=== PATIENT | male | born 1960 | race Caucasian/White ===

== ENCOUNTER 2017-01-16 16:34 | Emergency (ER) | payer MEDICARE ==
[2017-01-16] MEDS ORDERED: CLINDAMYCIN 150 MG CAP As Ordered ONE (17:55)
--- NOTE | 2017-01-16 18:09 | EDDOCDS ---
Physician Documentation [facility] Name: Bear Berger Age: 56 yrs Sex: Male : 1960 Arrival Date: 01/16/2017 Time: 16:34 Bed I8 / 16 Private MD: NO PRIMARY PHYSICIAN, . Disposition: 01/16/17 17:54 Discharged to Home/Self Care. Impression: Other and unspecified parts of mouth - infection. - Condition is Stable. - Discharge Instructions: Mouth Laceration, Mouth Laceration, [id number]. - Prescriptions for Clindamycin HCl 300 mg Oral Capsule - take 1 capsule by ORAL route every 6 hours; 40 capsule. - Medication Reconciliation, Local Pharmacy Hours form. - Follow up: Your, Dentist; When: Call to arrange an appointment. - Problem is new. - Symptoms are unchanged. Historical: - Allergies: No known drug Allergies; - Home Meds: 1. Abilify 15 mg Oral tab 1 tab once daily 2. Lasix 40 mg Oral tab 1 tab 2 times per day 3. spironolactone 25 mg Oral tab 1 tab 2 times per day 4. aspirin 81 mg Oral tab 1 tab once daily 5. Aleve 220 mg Oral tab 1 tab every 8 hours 6. tramadol 50 mg Oral tab 1 tab every 4 hours 7. carisoprodol 350 mg Oral tab 1 tab twice a day 8. omeprazole 20 mg Oral cpDR 1 cap 2 times per day 9. Verapamil Unknown Oral Unknown once daily 10. NitroQuick 0.4 mg SL subl 1 tab every 5 minutes 11. albuterol sulfate 2.5 mg /3 mL (0.083 %) Inhl nebu 3 mL 3 times per day 12. albuterol sulfate 90 mcg/actuation Inhl aepb 1 puff every 4 hours 13. symbicort daily - PMHx: Asthma; Bipolar disorder; GERD; [place] x 2; CHF; Hypertension; - PSHx: circumcision; - Social history: Smoking status: Patient uses tobacco products, light tobacco smoker. No barriers to communication noted, The patient speaks fluent Italian, Speaks appropriately for age. - Family history: Not pertinent. - : The pt / caregiver states he / she is not on anticoagulants. Home medication list is obtained from the patient. - Exposure Risk Screening:: None identified. Vital Signs: 01/16 16:37 BP 155 / 74 RA Sitting (auto/lg); Pulse 83; Resp 18; Temp 96.5; Pulse Ox 94% on R/A; bnb Weight 158.76 kg / 350.01 lbs (R); Height 5 ft. 6 in. (167.64 cm) (R); Pain 10; 16:37 Body Mass Index 56.49 (158.76 kg, 167.64 cm) bnb MDM: 17:53 Clindamycin 300 mg PO once ordered. sd1 18:05 Financial registration complete. zo Administered Medications: 18:01 Drug: Clindamycin 300 mg [clindamycin 150 mg capsule (2 caps)] Route: PO; mk4 Signatures: Hilary Pink MD MD sd1 Lavell Thomas Zoeann zo Becker, Joshua,RN RN Samantha Alvarez RN RN mk4 IRENE
--- NOTE | 2017-01-16 18:09 | EDDOCDS ---
Nurse's Notes [facility] Name: Bear Berger Age: 56 yrs Sex: Male : 1960 Arrival Date: 01/16/2017 Time: 16:34 Bed I8 / 16 Private MD: NO PRIMARY PHYSICIAN, . Diagnosis: Other and unspecified parts of mouth-infection Presentation: 01/16 16:40 Presenting complaint: Patient states: Patient reports that he has mouth pain, started jmb two weeks ago. Started with cut in mouth. Patient reports now it feels like mouth is swollen. Patient reports inability to eat or sleep. Adult Sepsis Screening: The patient does not have new or worsening altered mentation. Patient's respiratory rate is less than 22. Systolic blood pressure is greater than 100. Patient has a qSOFA score of 0- Negative Sepsis Screen. Suicide/Homicide risk assessment- the patient denies having any suicidal and/or homicidal ideations and does not present with any other emotional, behavioral or mental health complaints. Status: Patient is not a automotive service advisor or dependent. Transition of care: patient was not received from another setting of care. 16:40 Acuity: SARAH Level 4 [facility] 16:40 Method Of Arrival: Walkin/Carried/Asstd b Triage Assessment: 16:48 General: Appears in no apparent distress, Behavior is appropriate for age, cooperative. b Pain: Location: mouth Pain currently is 10 out of 10 on a pain scale. HIV screening NA for this visit Offered previously. Neurological: Level of Consciousness is awake, alert, obeys commands, Oriented to person, place, time, Speech is normal, Facial symmetry appears normal, Facial symmetry: tongue is midline. Respiratory: Airway is patent Respiratory effort is even, unlabored, Respiratory pattern is regular, symmetrical. Derm: Skin is pink, warm & dry. Musculoskeletal: Range of motion intact in all extremities. Historical: - Allergies: No known drug Allergies; - Home Meds: 1. Abilify 15 mg Oral tab 1 tab once daily 2. Lasix 40 mg Oral tab 1 tab 2 times per day 3. spironolactone 25 mg Oral tab 1 tab 2 times per day 4. aspirin 81 mg Oral tab 1 tab once daily 5. Aleve 220 mg Oral tab 1 tab every 8 hours 6. tramadol 50 mg Oral tab 1 tab every 4 hours 7. carisoprodol 350 mg Oral tab 1 tab twice a day 8. omeprazole 20 mg Oral cpDR 1 cap 2 times per day 9. Verapamil Unknown Oral Unknown once daily 10. NitroQuick 0.4 mg SL subl 1 tab every 5 minutes 11. albuterol sulfate 2.5 mg /3 mL (0.083 %) Inhl nebu 3 mL 3 times per day 12. albuterol sulfate 90 mcg/actuation Inhl aepb 1 puff every 4 hours 13. symbicort daily - PMHx: Asthma; Bipolar disorder; GERD; [place] x 2; CHF; Hypertension; - PSHx: circumcision; - Social history: Smoking status: Patient uses tobacco products, light tobacco smoker. No barriers to communication noted, The patient speaks fluent Mongolian, Speaks appropriately for age. - Family history: Not pertinent. - : The pt / caregiver states he / she is not on anticoagulants. Home medication list is obtained from the patient. - Exposure Risk Screening:: None identified. Assessment: 17:37 General: Appears in no apparent distress, to be sleeping. sitting in chair in room. mk4 Respiratory: Airway is patent Respiratory effort is even, unlabored, Respiratory pattern is regular. Vital Signs: 16:37 BP 155 / 74 RA Sitting (auto/lg); Pulse 83; Resp 18; Temp 96.5; Pulse Ox 94% on R/A; bnb Weight 158.76 kg (R); Height 5 ft. 6 in. (167.64 cm) (R); Pain 10/10; 16:37 Body Mass Index 56.49 (158.76 kg, 167.64 cm) [facility] Vitals: 16:37 Log In Time: January 16, 2017 at 16:35. [facility] ED Course: 16:36 Patient visited by Claudia Gilliland PCA. bnb 16:36 NO PRIMARY PHYSICIAN, . is Private Physician. bnb 16:36 Patient moved to Waiting bnb 16:39 Patient moved to Pre RCE bnb 16:41 Triage Initiated jmb 17:06 Patient visited by Hilary Pink MD. sd1 17:17 Patient moved to I8 / 16 ml6 17:36 Patient visited by Samantha Sebastian RN. mk4 17:37 The patient / caregiver is instructed regarding the plan of care and ED course. mk4 17:49 Hilary Pink MD is Attending Physician. sd1 17:49 Patient visited by Hilary Pink MD. sd1 17:53 Your, Dentist is Referral Physician. sd1 Administered Medications: 18:01 Drug: Clindamycin 300 mg [clindamycin 150 mg capsule (2 caps)] Route: PO; mk4 Order Results: There are currently no results for this order. Outcome: 17:54 Discharge ordered by Provider. sd1 18:08 Patient left the ED. dpd Signatures: Hilary Pink MD MD sd1 Lavell Thomas dpd Davian Huang, RN RN ml6 Clifton GillilandRN RN Samantha Alvarez RN RN mk4 Claudia Gilliland PCA SEPARATOR TENDER bnb IRENE
--- NOTE | 2017-01-18 19:09 | EDDOCDS ---
Nurse's Notes [facility] Name: Bear Berger Jr Age: 56 yrs Sex: Male : 1960 Arrival Date: 01/16/2017 Time: 16:34 Bed I8 / 16 Private MD: NO PRIMARY PHYSICIAN, . Diagnosis: Other and unspecified parts of mouth-infection Presentation: 01/16 16:40 Presenting complaint: Patient states: Patient reports that he has mouth pain, started jmb two weeks ago. Started with cut in mouth. Patient reports now it feels like mouth is swollen. Patient reports inability to eat or sleep. Adult Sepsis Screening: The patient does not have new or worsening altered mentation. Patient's respiratory rate is less than 22. Systolic blood pressure is greater than 100. Patient has a qSOFA score of 0- Negative Sepsis Screen. Suicide/Homicide risk assessment- the patient denies having any suicidal and/or homicidal ideations and does not present with any other emotional, behavioral or mental health complaints. Status: Patient is not a business services intern or dependent. Transition of care: patient was not received from another setting of care. 16:40 Acuity: SARAH Level 4 b 16:40 Method Of Arrival: Walkin/Carried/Asstd b Triage Assessment: 16:48 General: Appears in no apparent distress, Behavior is appropriate for age, cooperative. b Pain: Location: mouth Pain currently is 10 out of 10 on a pain scale. HIV screening NA for this visit Offered previously. Neurological: Level of Consciousness is awake, alert, obeys commands, Oriented to person, place, time, Speech is normal, Facial symmetry appears normal, Facial symmetry: tongue is midline. Respiratory: Airway is patent Respiratory effort is even, unlabored, Respiratory pattern is regular, symmetrical. Derm: Skin is pink, warm & dry. Musculoskeletal: Range of motion intact in all extremities. Historical: - Allergies: No known drug Allergies; - Home Meds: 1. Abilify 15 mg Oral tab 1 tab once daily 2. Lasix 40 mg Oral tab 1 tab 2 times per day 3. spironolactone 25 mg Oral tab 1 tab 2 times per day 4. aspirin 81 mg Oral tab 1 tab once daily 5. Aleve 220 mg Oral tab 1 tab every 8 hours 6. tramadol 50 mg Oral tab 1 tab every 4 hours 7. carisoprodol 350 mg Oral tab 1 tab twice a day 8. omeprazole 20 mg Oral cpDR 1 cap 2 times per day 9. Verapamil Unknown Oral Unknown once daily 10. NitroQuick 0.4 mg SL subl 1 tab every 5 minutes 11. albuterol sulfate 2.5 mg /3 mL (0.083 %) Inhl nebu 3 mL 3 times per day 12. albuterol sulfate 90 mcg/actuation Inhl aepb 1 puff every 4 hours 13. symbicort daily - PMHx: Asthma; Bipolar disorder; GERD; [place] x 2; CHF; Hypertension; - PSHx: circumcision; - Social history: Smoking status: Patient uses tobacco products, light tobacco smoker. No barriers to communication noted, The patient speaks fluent Anguillan, Speaks appropriately for age. - Family history: Not pertinent. - : The pt / caregiver states he / she is not on anticoagulants. Home medication list is obtained from the patient. - Exposure Risk Screening:: None identified. Screenin:13 Screening information is obtained from the patient. Fall risk: No risks identified. mk4 Assistance ADL's: requires no assistance with activities of daily living. Abuse/DV Screen: The patient / caregiver reports he/she is: not in a situation that causes fear, pain or injury. Nutritional screening: No deficits noted. Advance Directives: Currently, there is no health care proxy. There is no active DNR order. There is no living will. There is no Power of Quality Control Head. Advance directive information has not previously been placed in an [facility] medical record. Further advance directive information is declined. home support is adequate. Assessment: 17:37 General: Appears in no apparent distress, to be sleeping. sitting in chair in room. mk4 Respiratory: Airway is patent Respiratory effort is even, unlabored, Respiratory pattern is regular. Vital Signs: 16:37 BP 155 / 74 RA Sitting (auto/lg); Pulse 83; Resp 18; Temp 96.5; Pulse Ox 94% on R/A; bnb Weight 158.76 kg (R); Height 5 ft. 6 in. (167.64 cm) (R); Pain 10/10; 16:37 Body Mass Index 56.49 (158.76 kg, 167.64 cm) [facility] Vitals: 16:37 Log In Time: January 16, 2017 at 16:35. bnb ED Course: 16:36 Patient visited by Claudia Gilliland PCA. bnb 16:36 NO PRIMARY PHYSICIAN, . is Private Physician. bnb 16:36 Patient moved to Waiting bnb 16:39 Patient moved to Pre RCE bnb 16:41 Triage Initiated jmb 17:06 Patient visited by Hilary Pink MD. sd1 17:17 Patient moved to I8 / 16 ml6 17:36 Patient visited by Samantha Sebastian RN. mk4 17:37 The patient / caregiver is instructed regarding the plan of care and ED course. mk4 17:49 Hilary Pink MD is Attending Physician. sd1 17:49 Patient visited by Hilary Pink MD. sd1 17:53 Your, Dentist is Referral Physician. sd1 18:13 No IV's were initiated during this patient's visit. No procedures done that require mk4 assistance. 18:46 [facility] Payment Agreement was scanned into [employer] and attached to record. zo 18:56 Patient name changed from Bear\S\K\S\Lagray\S\ to Bear\S\K\S\Felicey Jr. EDMS 01/17 10:27 T-Sheet-- Draft Copy was scanned into [employer] and attached to record. gb Administered Medications: 01/16 18:01 Drug: Clindamycin 300 mg [clindamycin 150 mg capsule (2 caps)] Route: PO; mk4 Order Results: There are currently no results for this order. Outcome: 17:54 Discharge ordered by Provider. sd1 18:08 Patient left the ED. dpd 18:13 Discharge Assessment: Patient awake, alert and oriented x 3. No cognitive and/or mk4 functional deficits noted. Patient verbalized understanding of disposition instructions. Patient awake and alert. Discharge Assessment: patient administered narcotics - no. The following High Risk Discharge criteria are identified: None. Condition: good Condition: stable. No special radiology studies were completed. Property sent home with patient. Signatures: Dispatcher [employer] EDWA Hilary Pink MD MD sd1 Lavell Thomas dpd Eunice Sapp, Reg Reg gb Gisela Wilson Matthew, RN RN ml6 Clifton Gilliland,RN RN kylerb Samantha Sebastian, RN RN mk4 Claudia Gilliland, DISPATCHER SERVICE OR WORK DISPATCHER SERVICE OR WORK bnb Chart Complete MTDD
--- NOTE | 2017-01-18 19:09 | EDDOCDS ---
Physician Documentation [facility] Name: Bear Berger Jr Age: 56 yrs Sex: Male : 1960 Arrival Date: 01/16/2017 Time: 16:34 Bed I8 16 Private MD: NO PRIMARY PHYSICIAN, . Disposition: 01/16/17 17:54 Discharged to Home/Self Care. Impression: Other and unspecified parts of mouth - infection. - Condition is Stable. - Discharge Instructions: Mouth Laceration, Mouth Laceration, [id number]. - Prescriptions for Clindamycin HCl 300 mg Oral Capsule - take 1 capsule by ORAL route every 6 hours; 40 capsule. - Medication Reconciliation, Local Pharmacy Hours form. - Follow up: Your, Dentist; When: Call to arrange an appointment. - Problem is new. - Symptoms are unchanged. Historical: - Allergies: No known drug Allergies; - Home Meds: 1. Abilify 15 mg Oral tab 1 tab once daily 2. Lasix 40 mg Oral tab 1 tab 2 times per day 3. spironolactone 25 mg Oral tab 1 tab 2 times per day 4. aspirin 81 mg Oral tab 1 tab once daily 5. Aleve 220 mg Oral tab 1 tab every 8 hours 6. tramadol 50 mg Oral tab 1 tab every 4 hours 7. carisoprodol 350 mg Oral tab 1 tab twice a day 8. omeprazole 20 mg Oral cpDR 1 cap 2 times per day 9. Verapamil Unknown Oral Unknown once daily 10. NitroQuick 0.4 mg SL subl 1 tab every 5 minutes 11. albuterol sulfate 2.5 mg /3 mL (0.083 %) Inhl nebu 3 mL 3 times per day 12. albuterol sulfate 90 mcg/actuation Inhl aepb 1 puff every 4 hours 13. symbicort daily - PMHx: Asthma; Bipolar disorder; GERD; [place] x 2; CHF; Hypertension; - PSHx: circumcision; - Social history: Smoking status: Patient uses tobacco products, light tobacco smoker. No barriers to communication noted, The patient speaks fluent Khmer, Speaks appropriately for age. - Family history: Not pertinent. - : The pt / caregiver states he / she is not on anticoagulants. Home medication list is obtained from the patient. - Exposure Risk Screening:: None identified. Vital Signs: 01/16 16:37 BP 155 / 74 RA Sitting (auto/lg); Pulse 83; Resp 18; Temp 96.5; Pulse Ox 94% on R/A; bnb Weight 158.76 kg / 350.01 lbs (R); Height 5 ft. 6 in. (167.64 cm) (R); Pain 10/10; 16:37 Body Mass Index 56.49 (158.76 kg, 167.64 cm) bnb MDM: 17:53 Clindamycin 300 mg PO once ordered. sd1 18:05 Financial registration complete. zo 18:46 [facility] Payment Agreement was scanned into [employer] and attached to record. zo 01/17 10: T-Sheet-- Draft Copy was scanned into [employer] and attached to record. gb Administered Medications: 01/16 18:01 Drug: Clindamycin 300 mg [clindamycin 150 mg capsule (2 caps)] Route: PO; mk4 Signatures: Hilary Pink MD MD sd1 Lavell Thomas dpd Eunice Sapp, Reg Reg gb Gisela Wilson Joshua,RN RN Samantha Alvarez RN RN mk4 The chart was reviewed and I authenticate all verbal orders and agree with the evaluation and treatment provided.Attachments: 18:46 [facility] Payment Agreement zo 01/17 10:27 T-Sheet-- Draft Copy gb Chart Complete MTDD
--- NOTE | 2017-01-18 19:09 | EDDOCDS ---
Physician Documentation [facility] Name: Bear Berger Jr Age: 56 yrs Sex: Male : 1960 Arrival Date: 01/16/2017 Time: 16:34 Bed I8 16 Private MD: NO PRIMARY PHYSICIAN, . Disposition: 01/16/17 17:54 Discharged to Home/Self Care. Impression: Other and unspecified parts of mouth - infection. - Condition is Stable. - Discharge Instructions: Mouth Laceration, Mouth Laceration, [id number]. - Prescriptions for Clindamycin HCl 300 mg Oral Capsule - take 1 capsule by ORAL route every 6 hours; 40 capsule. - Medication Reconciliation, Local Pharmacy Hours form. - Follow up: Your, Dentist; When: Call to arrange an appointment. - Problem is new. - Symptoms are unchanged. Historical: - Allergies: No known drug Allergies; - Home Meds: 1. Abilify 15 mg Oral tab 1 tab once daily 2. Lasix 40 mg Oral tab 1 tab 2 times per day 3. spironolactone 25 mg Oral tab 1 tab 2 times per day 4. aspirin 81 mg Oral tab 1 tab once daily 5. Aleve 220 mg Oral tab 1 tab every 8 hours 6. tramadol 50 mg Oral tab 1 tab every 4 hours 7. carisoprodol 350 mg Oral tab 1 tab twice a day 8. omeprazole 20 mg Oral cpDR 1 cap 2 times per day 9. Verapamil Unknown Oral Unknown once daily 10. NitroQuick 0.4 mg SL subl 1 tab every 5 minutes 11. albuterol sulfate 2.5 mg /3 mL (0.083 %) Inhl nebu 3 mL 3 times per day 12. albuterol sulfate 90 mcg/actuation Inhl aepb 1 puff every 4 hours 13. symbicort daily - PMHx: Asthma; Bipolar disorder; GERD; [place] x 2; CHF; Hypertension; - PSHx: circumcision; - Social history: Smoking status: Patient uses tobacco products, light tobacco smoker. No barriers to communication noted, The patient speaks fluent Albanian, Speaks appropriately for age. - Family history: Not pertinent. - : The pt / caregiver states he / she is not on anticoagulants. Home medication list is obtained from the patient. - Exposure Risk Screening:: None identified. Vital Signs: 01/16 16:37 BP 155 / 74 RA Sitting (auto/lg); Pulse 83; Resp 18; Temp 96.5; Pulse Ox 94% on R/A; bnb Weight 158.76 kg / 350.01 lbs (R); Height 5 ft. 6 in. (167.64 cm) (R); Pain 10/10; 16:37 Body Mass Index 56.49 (158.76 kg, 167.64 cm) bnb MDM: 17:53 Clindamycin 300 mg PO once ordered. sd1 18:05 Financial registration complete. zo 18:46 [facility] Payment Agreement was scanned into [employer] and attached to record. zo 01/17 10: T-Sheet-- Draft Copy was scanned into [employer] and attached to record. gb Administered Medications: 01/16 18:01 Drug: Clindamycin 300 mg [clindamycin 150 mg capsule (2 caps)] Route: PO; mk4 Signatures: Hilary Pink MD MD sd1 Lavell Thomas dpd Eunice Sapp, Reg Reg gb Gisela Wilson Joshua,RN RN Samantha Alvarez RN RN mk4 The chart was reviewed and I authenticate all verbal orders and agree with the evaluation and treatment provided.Attachments: 18:46 [facility] Payment Agreement zo 01/17 10:27 T-Sheet-- Draft Copy gb Chart Complete MTDD
== END 2017-01-16 18:08 | disposition home or self-care (01) ==
LOC: M ED 16:34
DX: S00.502A Unspecified superficial injury of oral cavity, initial encounter (principal); J45.909 Unspecified asthma, uncomplicated; F31.9 Bipolar disorder, unspecified; K21.9 Gastro-esophageal reflux disease without esophagitis; I25.2 Old myocardial infarction; I50.9 Heart failure, unspecified; I10 Essential (primary) hypertension; Z72.0 Tobacco use; Z79.82 Long term (current) use of aspirin; Z79.899 Other long term (current) drug therapy; X58.XXXA Exposure to other specified factors, initial encounter; Y92.9 Unspecified place or not applicable; Y93.9 Activity, unspecified; Y99.9 Unspecified external cause status

== ENCOUNTER → 2017-03-07 | Outpatient (REF) | payer MEDICARE ==
[2017-03-07 20:05] LABS: ANION GAP 4 MEQ/L (8-16); BLOOD UREA NITROGEN 15 MG/DL (7-18); CALCIUM LEVEL 8.5 MG/DL (8.5-10.1); CARBON DIOXIDE LEVEL 33 MEQ/L (21-32); CHLORIDE LEVEL 107 MEQ/L (98-107); GLOMERULAR FILTRATION RATE > 60.0 (>56); GLUCOSE, FASTING 100 MG/DL (70-105); POTASSIUM SERUM 4.6 MEQ/L (3.5-5.1); SODIUM LEVEL 144 MEQ/L (136-145)
== END ==
LOC: M LAB REF 16:50
PROVIDERS: ATTEND Nurse Practitioner Family
DX: I11.0 Hypertensive heart disease with heart failure (principal); I50.9 Heart failure, unspecified

== ENCOUNTER → 2017-03-17 | Outpatient (CLI) | payer MEDICARE ==
--- NOTE | 2017-03-17 11:42 | REP ---
PA and lateral chest: Comparison is 08/08/2008. The lung cueva are clear. The cardiac size cannot be determined as the left cardiac margin is obscured by a large left epicardial fat pad. The tesha, mediastinum, and bony thorax are unremarkable. Impression: Essentially negative chest. There is a large left epicardial fat pad precluding evaluation of cardiac size. Signed by Abram Mcneal MD 03/17/2017 11:34 A
[2017-03-17 11:49] LABS: MEAN CORPUSCULAR HEMOGLOBIN 31.9 pg (27.0-33.0); MEAN CORPUSCULAR HGB CONC 32.8 g/dl (32.0-36.5); MEAN CORPUSCULAR VOLUME 97.2 fl (80.0-96.0); RED CELL DISTRIBUTION WIDTH 12.3 % (11.5-14.5); WHITE BLOOD COUNT 8.7 K/mm3 (4.0-10.0)
[2017-03-17 12:38] LABS: ALBUMIN 3.5 GM/DL (3.2-5.2); ALBUMIN/GLOBULIN RATIO 1.13 (1.00-1.93); ALKALINE PHOSPHATASE 62 U/L (45-117); ALT/SGPT 37 U/L (12-78); ANION GAP 7 MEQ/L (8-16); AST/SGOT 17 U/L (15-37); BILIRUBIN,TOTAL 0.7 MG/DL (0.2-1.0); BLOOD UREA NITROGEN 17 MG/DL (7-18); CALCIUM LEVEL 8.4 MG/DL (8.5-10.1); CARBON DIOXIDE LEVEL 32 MEQ/L (21-32); CHLORIDE LEVEL 97 MEQ/L (98-107); CHOLESTEROL LEVEL 185 MG/DL (<200); CREATININE FOR GFR 0.95 MG/DL (0.70-1.30); FREE T4 1.01 NG/DL (0.76-1.46); GLOMERULAR FILTRATION RATE > 60.0 (>56); GLUCOSE, FASTING 94 MG/DL (70-105); POTASSIUM SERUM 3.9 MEQ/L (3.5-5.1); SODIUM LEVEL 136 MEQ/L (136-145); TOTAL PROTEIN 6.6 GM/DL (6.4-8.2); TRIGLYCERIDES LEVEL 107 MG/DL (<150)
--- NOTE | 2017-03-17 17:17 | ECGEPIP ---
Stationary ECG Study [facility] Test Date: 2017-03-17 Pat Name: ANU CALDERÓN JR Department: Room: - Gender: M Gift Manager: : 1960 Requested By: Jessica CACERES Order Number: [id number] Reading MD: Alireza Aguila Measurements Intervals [place] Rate: 70 P: 49 OR: 166 QRS: 40 QRSD: 103 T: 84 QT: 381 QTc: 413 Interpretive Statements SINUS RHYTHM NONSPECIFIC T-WAVE ABNORMALITY No significant change when compared to prior tracing of 05-14-15 Electronically Signed On 03-17-2017 17:17:15 EDT by Alireza Aguila
== END ==
LOC: M LAB 10:56
PROVIDERS: ATTEND Nurse Practitioner Family
DX: R06.09 Other forms of dyspnea (principal); I25.118 Atherosclerotic heart disease of native coronary artery with other forms of angina pectoris; I11.0 Hypertensive heart disease with heart failure; Z13.220 Encounter for screening for lipoid disorders; Z12.5 Encounter for screening for malignant neoplasm of prostate; R20.8 Other disturbances of skin sensation; E66.01 Morbid (severe) obesity due to excess calories; Z11.4 Encounter for screening for human immunodeficiency virus [HIV]; F31.9 Bipolar disorder, unspecified; K62.5 Hemorrhage of anus and rectum; Z79.899 Other long term (current) drug therapy

== ENCOUNTER → 2017-04-04 | Outpatient (REF) | payer MEDICARE ==
[2017-04-04 19:10] LABS: ANION GAP 4 MEQ/L (8-16); BLOOD UREA NITROGEN 13 MG/DL (7-18); CALCIUM LEVEL 8.9 MG/DL (8.5-10.1); CARBON DIOXIDE LEVEL 34 MEQ/L (21-32); CHLORIDE LEVEL 107 MEQ/L (98-107); CREATININE FOR GFR 1.01 MG/DL (0.70-1.30); GLOMERULAR FILTRATION RATE > 60.0 (>56); GLUCOSE, FASTING 92 MG/DL (70-105); SODIUM LEVEL 145 MEQ/L (136-145)
[2017-04-04 19:54] LABS: POTASSIUM SERUM 5.2 MEQ/L (3.5-5.1)
== END ==
LOC: M LAB REF 16:28
PROVIDERS: ATTEND Nurse Practitioner Family
DX: I11.0 Hypertensive heart disease with heart failure (principal)

== ENCOUNTER → 2017-04-11 | Outpatient (REF) | payer MEDICARE ==
[2017-04-11 14:06] LABS: ANION GAP 7 MEQ/L (8-16); BLOOD UREA NITROGEN 20 MG/DL (7-18); CALCIUM LEVEL 8.5 MG/DL (8.5-10.1); CARBON DIOXIDE LEVEL 31 MEQ/L (21-32); CHLORIDE LEVEL 103 MEQ/L (98-107); CREATININE FOR GFR 1.11 MG/DL (0.70-1.30); GLOMERULAR FILTRATION RATE > 60.0 (>56); GLUCOSE, FASTING 105 MG/DL (70-105); POTASSIUM SERUM 4.2 MEQ/L (3.5-5.1); SODIUM LEVEL 141 MEQ/L (136-145)
== END ==
LOC: M LAB REF 12:45
PROVIDERS: ATTEND Nurse Practitioner Family
DX: I11.0 Hypertensive heart disease with heart failure (principal)

== ENCOUNTER → 2017-07-18 | Outpatient (REF) | payer MEDICARE ==
[~2017-07-18] MED LIST: ATOR40TA75 PO; CARV6.25 PO; LASI80TA PO; PROAAER10 PO; SPIR1CAP INH; SYMB16INH INH
[2017-07-18 13:34] LABS: ANION GAP 8 MEQ/L (8-16); BLOOD UREA NITROGEN 19 MG/DL (7-18); CALCIUM LEVEL 8.9 MG/DL (8.5-10.1); CARBON DIOXIDE LEVEL 30 MEQ/L (21-32); CHLORIDE LEVEL 104 MEQ/L (98-107); CREATININE FOR GFR 1.01 MG/DL (0.70-1.30); GLOMERULAR FILTRATION RATE > 60.0 (>56); GLUCOSE, FASTING 86 MG/DL (70-105); POTASSIUM SERUM 4.4 MEQ/L (3.5-5.1); SODIUM LEVEL 142 MEQ/L (136-145)
== END ==
LOC: M LAB REF 12:24
PROVIDERS: ATTEND Nurse Practitioner Family
DX: I11.0 Hypertensive heart disease with heart failure (principal); I50.9 Heart failure, unspecified

== ENCOUNTER 2017-09-20 13:13 | Emergency (ER) | payer MEDICARE ==
[~2017-09-20] VITALS: Ht 167.6 cm; Wt 150.0 kg
[2017-09-20] MEDS ORDERED: ATOR40TA75 PO (13:26)
[2017-09-20] MEDS ORDERED: LASI80TA PO (13:26)
[2017-09-20] MEDS ORDERED: PROAAER10 PO (13:26)
[2017-09-20] MEDS ORDERED: CARV6.25 PO (13:26)
[2017-09-20] MEDS ORDERED: SYMB16INH INH (13:26)
[2017-09-20] MEDS ORDERED: SPIR1CAP INH (13:26)
--- NOTE | 2017-09-20 15:27 | REP ---
LEFT KNEE SERIES: Five views. HISTORY: Left knee pop. FINDINGS: Five views of the left knee demonstrate normal bones, joints, and soft tissues. No fracture or subluxation is seen. IMPRESSION: Negative views of the left knee. Signed by Nash Siegel MD 09/20/2017 04:12 P
[2017-09-20 16:28] VITALS: BP 157/80
== END 2017-09-20 16:48 | disposition home or self-care (01) ==
LOC: M ED 13:13
DX: M25.562 Pain in left knee (principal); W01.198A Fall on same level from slipping, tripping and stumbling with subsequent striking against other object, initial encounter; Y92.099 Unspecified place in other non-institutional residence as the place of occurrence of the external cause; Y93.01 Activity, walking, marching and hiking; Y99.9 Unspecified external cause status

== ENCOUNTER 2017-12-15 10:25 | Inpatient (IN) | payer MEDICARE ==
[2017-12-15 11:14] LABS: BASO # 0.1 10^3/uL (0.0-0.2); BASO % 0.6 % (0.0-1.0); EOS # 0.3 10^3/uL (0.0-0.50); EOS % 2.5 % (0.0-3.0); HEMATOCRIT 44.7 % (42.0-52.0); HEMOGLOBIN 14.7 g/dl (14.0-18.0); IMMATURE GRANULOCYTE % 0.3 % (0-0); LYMPH # 2.2 10^3/uL (1.5-4.5); LYMPH % 19.5 % (24.0-44.0); MEAN CORPUSCULAR HGB CONC 32.9 g/dl (32.0-36.5); MEAN CORPUSCULAR VOLUME 100.2 fl (80.0-96.0); MONO # 0.7 10^3/uL (0.0-0.8); MONO % 6.4 % (0.0-5.0); NEUTROPHILS # 8.1 10^3/uL (1.8-7.7); NEUTROPHILS % 70.7 % (36.0-66.0); PLATELET COUNT, AUTOMATED 228 10^3/uL (150-450); RED BLOOD COUNT 4.46 10^6/uL (4.30-6.10); RED CELL DISTRIBUTION WIDTH 13.1 % (11.5-14.5); WHITE BLOOD COUNT 11.5 10^3/uL (4.0-10.0)
[2017-12-15 11:23] LABS: INR 1.14; PROTHROMBIN TIME 14.8 SECONDS (12.4-14.5)
[2017-12-15 11:31] LABS: LACTIC ACID SEPSIS PROTOCOL 1.9 MMOL/L (0.4-2.0)
[2017-12-15 11:34] LABS: ALBUMIN 3.6 GM/DL (3.2-5.2); ALBUMIN/GLOBULIN RATIO 1.09 (1.00-1.93); ALKALINE PHOSPHATASE 70 U/L (45-117); ALT/SGPT 46 U/L (12-78); ANION GAP 3 MEQ/L (8-16); AST/SGOT 18 U/L (7-37); BILIRUBIN,DIRECT 0.2 MG/DL (0.0-0.2); BILIRUBIN,TOTAL 0.5 MG/DL (0.2-1.0); BLOOD UREA NITROGEN 13 MG/DL (7-18); CALCIUM LEVEL 8.4 MG/DL (8.5-10.1); CARBON DIOXIDE LEVEL 37 MEQ/L (21-32); CHLORIDE LEVEL 95 MEQ/L (98-107); CPK CREATINE PHOSPHOKINASE 128 U/L (39-308); CREATININE FOR GFR 0.93 MG/DL (0.70-1.30); GLOMERULAR FILTRATION RATE > 60.0 (>56); GLUCOSE, FASTING 101 MG/DL (70-105); POTASSIUM SERUM 4.1 MEQ/L (3.5-5.1); SODIUM LEVEL 135 MEQ/L (136-145); TOTAL PROTEIN 6.9 GM/DL (6.4-8.2); TROPONIN I < 0.02 NG/ML (< 0.10)
[2017-12-15 11:40] LABS: MB/CK RELATIVE INDEX 2.34 (< OR =4); NT-PRO BNP 262 PG/ML (<125)
[2017-12-15 11:41] LABS: ABG HCO3 34.6 MEQ/L (22.0-26.0); ABG O2 SATURATION 93.2 % (95.0-99.0); ABG PARTIAL PRESSURE O2 68.9 mmHg (75.0-100.0); ABG STANDARD HCO3 29.8 MEQ/L (22.0-26.0); ABG TOTAL CO2 36.7 MEQ/L (22.0-29.0); ABG pH (ARTERIAL) 7.326 UNITS (7.350-7.450)
[2017-12-15 11:43] LABS: ABG PARTIAL PRESSURE CO2 67.7 mmHg (35.0-45.0)
[2017-12-15] MEDS: IPRATROPIUM 0.5MG/ALBUTEROL 2.5MG INH SOL UD 3ML (DUONEB)(J7620) NEB ×3 (12:06→21:50)
[2017-12-15] MEDS: predniSONE 20 MG TAB PO (12:20)
[2017-12-15 13:07] LABS: ABG HCO3 31.5 MEQ/L (22.0-26.0); ABG O2 SATURATION 90.1 % (95.0-99.0); ABG PARTIAL PRESSURE CO2 59.1 mmHg (35.0-45.0); ABG PARTIAL PRESSURE O2 61.2 mmHg (75.0-100.0); ABG STANDARD HCO3 27.8 MEQ/L (22.0-26.0); ABG TOTAL CO2 33.3 MEQ/L (22.0-29.0); ABG pH (ARTERIAL) 7.345 UNITS (7.350-7.450)
[2017-12-15] MEDS ORDERED: FUROSEMIDE 100 MG/10 ML VIAL (J1940) IV (13:15)
[2017-12-15] MEDS: FUROSEMIDE 100 MG/10 ML VIAL (J1940) IV (13:47)
[2017-12-15] MEDS ORDERED: IPRATROPIUM 0.5MG/ALBUTEROL 2.5MG INH SOL UD 3ML (DUONEB)(J7620) NEB (15:30)
[2017-12-15 15:45] LABS: C REACTIVE PROTEIN QUANTITATIV 0.92 MG/DL (0.00-0.30)
[2017-12-15] MEDS ORDERED: ACETAMINOPHEN TAB 650MG DOSE (2X325MG) PO (15:45)
[2017-12-15] MEDS ORDERED: BISACODYL 5 MG TAB PO (15:45)
[2017-12-15] MEDS: FUROSEMIDE 40 MG/4 ML VIAL (J1940) IV (16:25)
[2017-12-15 16:33] LABS: FREE T4 0.97 NG/DL (0.76-1.46)
[2017-12-15] MEDS: methylPREDNISolone INJ 125 MG/2 ML VIAL (J2930) IV (18:32)
[2017-12-15] MEDS: NITROGLYCERIN 2% OINT 1 GM *U/D* PKT TOP (18:33)
[2017-12-15] MEDS: ATORVASTATIN 20 MG TAB PO (22:18)
[2017-12-15] MEDS: OMEPRAZOLE 20 MG CAP PO (22:18)
[2017-12-15] MEDS: CARVedilol 6.25 MG TAB PO (22:18)
[2017-12-15] MEDS: HEPARIN SOD (PORCINE) 5000 UNITS/ML VIAL SC (22:19)
[2017-12-16] MEDS: IPRATROPIUM 0.5MG/ALBUTEROL 2.5MG INH SOL UD 3ML (DUONEB)(J7620) NEB ×4 (00:21→20:20)
[2017-12-16] MEDS: FUROSEMIDE 40 MG/4 ML VIAL (J1940) IV ×5 (01:37→23:59)
[2017-12-16] MEDS: methylPREDNISolone INJ 125 MG/2 ML VIAL (J2930) IV ×2 (04:48→15:00)
[2017-12-16] MEDS: HEPARIN SOD (PORCINE) 5000 UNITS/ML VIAL SC ×3 (06:00→21:16)
[2017-12-16 06:39] LABS: HEMATOCRIT 46.5 % (42.0-52.0); HEMOGLOBIN 15.3 g/dl (14.0-18.0); MEAN CORPUSCULAR HEMOGLOBIN 32.6 pg (27.0-33.0); MEAN CORPUSCULAR HGB CONC 32.9 g/dl (32.0-36.5); MEAN CORPUSCULAR VOLUME 98.9 fl (80.0-96.0); PLATELET COUNT, AUTOMATED 270 10^3/uL (150-450); RED CELL DISTRIBUTION WIDTH 12.9 % (11.5-14.5)
[2017-12-16 06:52] LABS: ALBUMIN 3.5 GM/DL (3.2-5.2); ALBUMIN/GLOBULIN RATIO 1.03 (1.00-1.93); ALKALINE PHOSPHATASE 74 U/L (45-117); ALT/SGPT 45 U/L (12-78); ANION GAP 4 MEQ/L (8-16); AST/SGOT 14 U/L (7-37); BILIRUBIN,TOTAL 0.6 MG/DL (0.2-1.0); BLOOD UREA NITROGEN 15 MG/DL (7-18); C REACTIVE PROTEIN QUANTITATIV 1.06 MG/DL (0.00-0.30); CALCIUM LEVEL 8.8 MG/DL (8.5-10.1); CARBON DIOXIDE LEVEL 36 MEQ/L (21-32); CHLORIDE LEVEL 98 MEQ/L (98-107); CREATININE FOR GFR 0.93 MG/DL (0.70-1.30); GLOMERULAR FILTRATION RATE > 60.0 (>56); GLUCOSE, FASTING 137 MG/DL (70-105); MAGNESIUM LEVEL 2.4 MG/DL (1.8-2.4); POTASSIUM SERUM 4.8 MEQ/L (3.5-5.1); SODIUM LEVEL 138 MEQ/L (136-145); TOTAL PROTEIN 6.9 GM/DL (6.4-8.2)
[2017-12-16] MEDS: SPIRONOLACTONE 25 MG TAB PO (09:03)
[2017-12-16] MEDS: ARIPiprazole 15 MG TAB (AbiLIFY) PO (09:04)
[2017-12-16] MEDS: ASPIRIN 81 MG ENTERIC TAB PO (09:04)
[2017-12-16] MEDS: CARVedilol 6.25 MG TAB PO ×2 (09:04→21:16)
[2017-12-16 11:02] LABS: ABG BASE EXCESS 7.1 (-2.0-2.0); ABG HCO3 33.8 MEQ/L (22.0-26.0); ABG PARTIAL PRESSURE CO2 55.3 mmHg (35.0-45.0); ABG PARTIAL PRESSURE O2 53.5 mmHg (75.0-100.0); ABG STANDARD HCO3 30.7 MEQ/L (22.0-26.0); ABG TOTAL CO2 35.5 MEQ/L (22.0-29.0); ABG pH (ARTERIAL) 7.404 UNITS (7.350-7.450)
[2017-12-16] MEDS: ATORVASTATIN 20 MG TAB PO (21:16)
[2017-12-16] MEDS: OMEPRAZOLE 20 MG CAP PO (21:16)
[2017-12-16 21:45] LABS: AMORPHOUS SEDIMENT MODERATE (NEGATIVE); APPEARANCE, URINE TURBID (CLEAR); BACTERIA, URINE AUTO NEGATIVE (NEGATIVE); BILIRUBIN, URINE AUTO NEGATIVE (NEGATIVE); BLOOD, URINE BLOOD 3+ (NEGATIVE); COLOR, URINE YELLOW (YELLOW); GLUCOSE, URINE (UA) AUTO NEGATIVE (NEGATIVE); KETONE, URINE AUTO NEGATIVE (NEGATIVE); LEUKOCYTE ESTERASE, URINE AUTO NEGATIVE (NEGATIVE); NITRITE, URINE AUTO NEGATIVE (NEGATIVE); PROTEIN, URINE AUTO NEGATIVE (NEGATIVE); RBC, URINE AUTO 47 /HPF (0-3); SPECIFIC GRAVITY URINE AUTO 1.028 (1.002-1.035); SQUAMOUS EPITHELIAL CELL UR AU 0 /HPF (0-6); WBC, URINE AUTO 2 /HPF (0-3)
[2017-12-17] MEDS: IPRATROPIUM 0.5MG/ALBUTEROL 2.5MG INH SOL UD 3ML (DUONEB)(J7620) NEB ×4 (02:24→21:55)
[2017-12-17] MEDS: methylPREDNISolone INJ 125 MG/2 ML VIAL (J2930) IV ×2 (04:15→16:18)
[2017-12-17 04:39] LABS: HEMATOCRIT 44.4 % (42.0-52.0); HEMOGLOBIN 14.5 g/dl (14.0-18.0); MEAN CORPUSCULAR HEMOGLOBIN 31.9 pg (27.0-33.0); MEAN CORPUSCULAR HGB CONC 32.7 g/dl (32.0-36.5); MEAN CORPUSCULAR VOLUME 97.8 fl (80.0-96.0); PLATELET COUNT, AUTOMATED 286 10^3/uL (150-450); RED BLOOD COUNT 4.54 10^6/uL (4.30-6.10); RED CELL DISTRIBUTION WIDTH 13.1 % (11.5-14.5); WHITE BLOOD COUNT 22.5 10^3/uL (4.0-10.0)
[2017-12-17 05:01] LABS: ALBUMIN 3.3 GM/DL (3.2-5.2); ALBUMIN/GLOBULIN RATIO 0.97 (1.00-1.93); ALKALINE PHOSPHATASE 63 U/L (45-117); ALT/SGPT 37 U/L (12-78); ANION GAP 5 MEQ/L (8-16); AST/SGOT 18 U/L (7-37); BILIRUBIN,TOTAL 0.7 MG/DL (0.2-1.0); BLOOD UREA NITROGEN 28 MG/DL (7-18); C REACTIVE PROTEIN QUANTITATIV 0.56 MG/DL (0.00-0.30); CALCIUM LEVEL 8.7 MG/DL (8.5-10.1); CARBON DIOXIDE LEVEL 35 MEQ/L (21-32); CHLORIDE LEVEL 99 MEQ/L (98-107); GLOMERULAR FILTRATION RATE > 60.0 (>56); GLUCOSE, FASTING 131 MG/DL (70-105); MAGNESIUM LEVEL 2.6 MG/DL (1.8-2.4); POTASSIUM SERUM 4.3 MEQ/L (3.5-5.1); SODIUM LEVEL 139 MEQ/L (136-145); TOTAL PROTEIN 6.7 GM/DL (6.4-8.2)
[2017-12-17] MEDS: FUROSEMIDE 40 MG/4 ML VIAL (J1940) IV ×2 (06:13→17:49)
[2017-12-17] MEDS: HEPARIN SOD (PORCINE) 5000 UNITS/ML VIAL SC ×3 (06:14→21:44)
[2017-12-17] MEDS: ASPIRIN 81 MG ENTERIC TAB PO (08:08)
[2017-12-17] MEDS: SPIRONOLACTONE 25 MG TAB PO (08:08)
[2017-12-17] MEDS: CARVedilol 6.25 MG TAB PO ×2 (08:09→21:48)
[2017-12-17] MEDS: ARIPiprazole 15 MG TAB (AbiLIFY) PO (08:09)
[2017-12-17 14:01] LABS: CK-MB VALUE MASS 2.5 NG/ML (0.0-3.6); CPK CREATINE PHOSPHOKINASE 382 U/L (39-308); MB/CK RELATIVE INDEX 0.65 (< OR =4); TROPONIN I < 0.02 NG/ML (< 0.10)
[2017-12-17] MEDS: OMEPRAZOLE 20 MG CAP PO (21:44)
[2017-12-17] MEDS: ATORVASTATIN 20 MG TAB PO (21:44)
[2017-12-18] MEDS: IPRATROPIUM 0.5MG/ALBUTEROL 2.5MG INH SOL UD 3ML (DUONEB)(J7620) NEB ×3 (00:14→13:04)
[2017-12-18] MEDS: methylPREDNISolone INJ 125 MG/2 ML VIAL (J2930) IV (04:29)
[2017-12-18 05:34] LABS: HEMATOCRIT 44.2 % (42.0-52.0); HEMOGLOBIN 14.3 g/dl (14.0-18.0); MEAN CORPUSCULAR HEMOGLOBIN 31.8 pg (27.0-33.0); MEAN CORPUSCULAR HGB CONC 32.4 g/dl (32.0-36.5); MEAN CORPUSCULAR VOLUME 98.4 fl (80.0-96.0); PLATELET COUNT, AUTOMATED 280 10^3/uL (150-450); RED BLOOD COUNT 4.49 10^6/uL (4.30-6.10); RED CELL DISTRIBUTION WIDTH 13.5 % (11.5-14.5); WHITE BLOOD COUNT 18.1 10^3/uL (4.0-10.0)
[2017-12-18 05:55] LABS: ALBUMIN 3.3 GM/DL (3.2-5.2); ALBUMIN/GLOBULIN RATIO 1.03 (1.00-1.93); ALKALINE PHOSPHATASE 55 U/L (45-117); ALT/SGPT 42 U/L (12-78); ANION GAP 5 MEQ/L (8-16); AST/SGOT 20 U/L (7-37); BILIRUBIN,TOTAL 0.7 MG/DL (0.2-1.0); BLOOD UREA NITROGEN 33 MG/DL (7-18); C REACTIVE PROTEIN QUANTITATIV 0.34 MG/DL (0.00-0.30); CALCIUM LEVEL 8.5 MG/DL (8.5-10.1); CARBON DIOXIDE LEVEL 36 MEQ/L (21-32); CHLORIDE LEVEL 100 MEQ/L (98-107); CREATININE FOR GFR 1.03 MG/DL (0.70-1.30); GLOMERULAR FILTRATION RATE > 60.0 (>56); GLUCOSE, FASTING 121 MG/DL (70-105); MAGNESIUM LEVEL 2.6 MG/DL (1.8-2.4); POTASSIUM SERUM 4.1 MEQ/L (3.5-5.1); SODIUM LEVEL 141 MEQ/L (136-145); TOTAL PROTEIN 6.5 GM/DL (6.4-8.2)
[2017-12-18] MEDS: FUROSEMIDE 40 MG/4 ML VIAL (J1940) IV (06:20)
[2017-12-18] MEDS: HEPARIN SOD (PORCINE) 5000 UNITS/ML VIAL SC ×2 (06:20→14:00)
[2017-12-18] MEDS: ASPIRIN 81 MG ENTERIC TAB PO (09:50)
[2017-12-18] MEDS: CARVedilol 6.25 MG TAB PO (09:50)
[2017-12-18] MEDS: SPIRONOLACTONE 25 MG TAB PO (09:50)
[2017-12-18] MEDS: ARIPiprazole 15 MG TAB (AbiLIFY) PO (11:43)
[2017-12-18] MEDS ORDERED: predniSONE 20 MG TAB PO (21:00)
== END 2017-12-18 14:30 | disposition left against medical advice (07) | DRG 292 ==
LOC: M ICU 12-16 14:12 → M PCU 12-17 20:00 → M ED 10:25 → M ED INP 17:31
DX: I11.0 Hypertensive heart disease with heart failure (principal); J44.1 Chronic obstructive pulmonary disease with (acute) exacerbation; Z68.44 Body mass index [BMI] 60.0-69.9, adult; I50.33 Acute on chronic diastolic (congestive) heart failure; E66.01 Morbid (severe) obesity due to excess calories; I25.10 Atherosclerotic heart disease of native coronary artery without angina pectoris; E03.9 Hypothyroidism, unspecified; F17.210 Nicotine dependence, cigarettes, uncomplicated; G47.33 Obstructive sleep apnea (adult) (pediatric); F31.9 Bipolar disorder, unspecified; E78.5 Hyperlipidemia, unspecified; Z99.89 Dependence on other enabling machines and devices; I25.2 Old myocardial infarction; Z79.82 Long term (current) use of aspirin; Z79.899 Other long term (current) drug therapy; Z88.8 Allergy status to other drugs, medicaments and biological substances

== ENCOUNTER 2019-02-06 23:44 | Inpatient (IN) | payer MEDICARE ==
[~2019-02-06] VITALS: Ht 167.6 cm; Wt 141.0 kg
[~2019-02-06 23:44] MED LIST changes: +ALBU83IN INH; +ARIP1TAB10 PO; +ASPI1TAB PO; +COMBAER6 INH; -LASI80TA PO; +LASI80TA3 PO; +NITR0.4S14 SL; +OMEP20CA3 PO; +PRED10TA2 PO; +SPIR-10 PO; +TYLE325T5 PO
[2019-02-07] VITALS (7 sets, daily range): BP systolic 136–148; BP diastolic 62–77; O2SAT 95–100
[2019-02-07] MEDS: IPRATROPIUM 0.5MG/ALBUTEROL 2.5MG INH SOL UD 3ML (DUONEB)(J7620) NEB PRN ×3 (00:33→03:07)
[2019-02-07 00:34] LABS: BASO % 0.4 % (0.0-1.0); EOS % 0.1 % (0.0-3.0); HEMATOCRIT 45.6 % (42.0-52.0); HEMOGLOBIN 14.5 g/dl (13.5-17.5); LYMPH % 12.7 % (24.0-44.0); MEAN CORPUSCULAR HEMOGLOBIN 31.9 pg (27.0-33.0); MEAN CORPUSCULAR HGB CONC 31.8 g/dl (32.0-36.5); MEAN CORPUSCULAR VOLUME 100.4 fl (80.0-96.0); MONO # 0.9 10^3/uL (0.0-0.8); MONO % 12.1 % (0.0-5.0); NEUTROPHILS # 5.6 10^3/uL (1.8-7.7); NEUTROPHILS % 73.9 % (36.0-66.0); PLATELET COUNT, AUTOMATED 179 10^3/uL (150-450); RED BLOOD COUNT 4.54 10^6/uL (4.30-6.10); WHITE BLOOD COUNT 7.6 10^3/uL (4.0-10.0)
[2019-02-07 00:54] LABS: INFLUENZA A AMPLIFICATION POSITIVE (NEGATIVE); INFLUENZA B AMPLIFICATION NEGATIVE (NEGATIVE)
[2019-02-07] MEDS ORDERED: K-TA10TA2 PO (01:00)
[2019-02-07] MEDS ORDERED: LASI40TA9 PO (01:00)
[2019-02-07] MEDS ORDERED: CYCL10TA PO ×2 (01:00→03:18)
[2019-02-07] MEDS ORDERED: ALTA1CAP3 PO (01:00)
[2019-02-07] MEDS ORDERED: PROAAER10 INH ×2 (01:00→03:18)
[2019-02-07 01:01] LABS: ALT/SGPT 146 U/L (12-78); BILIRUBIN,TOTAL 0.6 MG/DL (0.2-1.0); BLOOD UREA NITROGEN 23 MG/DL (7-18); CALCIUM LEVEL 7.9 MG/DL (8.8-10.2); CARBON DIOXIDE LEVEL 38 MEQ/L (21-32); CHLORIDE LEVEL 94 MEQ/L (98-107); GLOMERULAR FILTRATION RATE > 60.0 (>49); GLUCOSE, FASTING 103 MG/DL (70-100); POTASSIUM SERUM 4.4 MEQ/L (3.5-5.1); SODIUM LEVEL 136 MEQ/L (136-145); TOTAL PROTEIN 6.7 GM/DL (6.4-8.2)
[2019-02-07] MEDS ORDERED: IPRATROPIUM 0.5MG/ALBUTEROL 2.5MG INH SOL UD 3ML (DUONEB)(J7620) NEB ONE (02:15)
[2019-02-07] MEDS ORDERED: methylPREDNISolone INJ 125 MG/2 ML VIAL (J2930) IV ONE (02:15)
[2019-02-07 02:32] LABS: ABG BASE EXCESS 8.7 (-2.0-2.0); ABG HCO3 40.9 MEQ/L (22.0-26.0); ABG O2 SATURATION 90.2 % (95.0-99.0); ABG PARTIAL PRESSURE CO2 99.4 mmHg (35.0-45.0); ABG PARTIAL PRESSURE O2 68.2 mmHg (75.0-100.0); ABG STANDARD HCO3 32.3 MEQ/L (22.0-26.0); ABG TOTAL CO2 43.9 MEQ/L (23.0-31.0); ABG pH (ARTERIAL) 7.232 UNITS (7.350-7.450)
[2019-02-07 02:34] LABS: CPK CREATINE PHOSPHOKINASE 168 U/L (39-308); NT-PRO BNP 705 PG/ML (<125); TROPONIN I < 0.02 NG/ML (< 0.10)
[2019-02-07] MEDS ORDERED: ALBUTEROL SULFATE 2.5 MG/0.5 ML INH NEB SOLN NEB PRN (03:15)
[2019-02-07] MEDS ORDERED: RAMI1CAP24 PO (03:18)
[2019-02-07] MEDS ORDERED: MUCUTAB PO (03:18)
[2019-02-07] MEDS ORDERED: ASPI81CH PO (03:18)
[2019-02-07] MEDS ORDERED: CARV12.5 PO (03:18)
[2019-02-07] MEDS ORDERED: FURO40TA2 PO (03:18)
[2019-02-07] MEDS ORDERED: POTA10TA17 PO (03:18)
[2019-02-07] MEDS ORDERED: SPIR1CAP INH (03:18)
[2019-02-07] MEDS ORDERED: NITROGLYCERIN 0.4 MG SUBL TABLET SL PRN (03:30)
[2019-02-07 04:49] LABS: ABG BASE EXCESS 11.6 (-2.0-2.0); ABG HCO3 45.5 MEQ/L (22.0-26.0); ABG O2 SATURATION 95.2 % (95.0-99.0); ABG PARTIAL PRESSURE O2 89.6 mmHg (75.0-100.0); ABG STANDARD HCO3 35.3 MEQ/L (22.0-26.0); ABG TOTAL CO2 49.1 MEQ/L (23.0-31.0); ABG pH (ARTERIAL) 7.208 UNITS (7.350-7.450)
[2019-02-07] MEDS ORDERED: FUROSEMIDE 40 MG/4 ML VIAL (J1940) IV SCH ×4 (05:03→09:00)
[2019-02-07] MEDS: HEPARIN SOD (PORCINE) 5000 UNITS/ML VIAL SC SCH ×3 (05:11→21:05)
[2019-02-07] MEDS: AZITHROMYCIN INJ 500 MG, VIAL MATE ADAPTER 1 EACH in D5W 250 ML IV SCH (05:11)
[2019-02-07 05:41] LABS: ALBUMIN 3.3 GM/DL (3.2-5.2); ALT/SGPT 153 U/L (12-78); BILIRUBIN,TOTAL 0.6 MG/DL (0.2-1.0); BLOOD UREA NITROGEN 23 MG/DL (7-18); CALCIUM LEVEL 8.4 MG/DL (8.8-10.2); CARBON DIOXIDE LEVEL 40 MEQ/L (21-32); CHLORIDE LEVEL 92 MEQ/L (98-107); CREATININE FOR GFR 0.98 MG/DL (0.70-1.30); GLOMERULAR FILTRATION RATE > 60.0 (>49); GLUCOSE, FASTING 111 MG/DL (70-100); POTASSIUM SERUM 4.6 MEQ/L (3.5-5.1); SODIUM LEVEL 136 MEQ/L (136-145); TOTAL PROTEIN 7.7 GM/DL (6.4-8.2); TROPONIN I < 0.02 NG/ML (< 0.10)
[2019-02-07 05:46] LABS: ABG BASE EXCESS 4.5 (-2.0-2.0); ABG HCO3 35.4 MEQ/L (22.0-26.0); ABG O2 SATURATION 89.9 % (95.0-99.0); ABG PARTIAL PRESSURE CO2 85.9 mmHg (35.0-45.0); ABG PARTIAL PRESSURE O2 65.7 mmHg (75.0-100.0); ABG STANDARD HCO3 28.2 MEQ/L (22.0-26.0); ABG pH (ARTERIAL) 7.233 UNITS (7.350-7.450)
[2019-02-07] MEDS ORDERED: FUROSEMIDE 100 MG/10 ML VIAL (J1940) IV SCH (06:24)
--- NOTE | 2019-02-07 07:23 | HPE ---
DATE OF ADMISSION: 02/07/2019 CHIEF COMPLAINT: Cough and progressive dyspnea on exertion for one week. HISTORY OF PRESENT ILLNESS: The patient is a 58-year-old male. He has a significant past medical history of what appears to be diastolic congestive heart failure, chronic obstructive pulmonary disease (COPD), coronary artery disease, obesity, obstructive sleep apnea (JESUS) on BiPAP or CPAP at home, unclear, hypertension, hyperlipidemia, morbid obesity. The patient presents to the emergency room in respiratory distress. The patient is somewhat somnolent, able to respond, but also somewhat sleepy. States he has been having symptoms of cough and shortness of breath, progressively worsening for the last week. He denies any chest pain since the productive cough. The patient again is arousable, but the history is somewhat limited as he does appear somewhat sleepy. He does have CO2 narcosis. He is able to answer questions after being prompted multiple times. He denies any abdominal pain, constipation or diarrhea. PAST MEDICAL HISTORY: See history of present illness. PAST SURGICAL HISTORY: As per chart, no significant. Patient was unable to provide as he was to sleepy. HOME MEDICATIONS: - aspirin - Symbicort - Coreg - nitroglycerin - omeprazole - potassium chloride - ramipril - Spiriva - Lasix - Flexeril - albuterol - DuoNebs SOCIAL HISTORY: Former smoker. Denies alcohol or illicit drug use. FAMILY HISTORY: Unable to obtain. REVIEW OF SYSTEMS: Limited but able to obtain a 10 point review of systems, all negative except those listed in the history of present illness. VITAL SIGNS ON ADMISSION: Temperature 99, respirations 24. He was on 6 liters saturating at what appears to be 87%. Blood pressure 168/78. PHYSICAL EXAMINATION: GENERAL: He is an obese gentleman, lethargic. HEAD: Normocephalic, atraumatic. EYES: Extraocular movements are intact. Pupils equal, round, reactive to light. LUNGS: Bronchial breath sounds, mild wheezing. CARDIOVASCULAR: Regular rate and rhythm. Normal S1 and S2. No murmurs, gallops, or rubs. ABDOMEN: Obese. Positive bowel sounds. No rebound or guarding. EXTREMITIES: 1+ edema. No calf tenderness. SKIN: Intact. No rashes, lesions or breakdowns. NEUROLOGICAL EXAM: He is arousable, alert to person and place. LABS AND IMAGING COMPLETED IN THE ER: White count of 7, hemoglobin and hematocrit of 14/45, platelet count of 179. Blood gas 7.23, 99, 68, 40, 90. Chemistry shows a BUN and creatinine of 23/0.09. Tropes are negative. AST 66, ALT 146, BNP of 705. Influenza flu positive. Chest x-ray shows possible small bilateral pleural effusions, some pulmonary venous congestion with mild interstitial edema. ASSESSMENT/PLAN: Acute on chronic respiratory failure with hypercapnia, likely secondary to COPD exacerbation secondary to the flu with likely superimposed CHF exacerbation. PLAN: For COPD exacerbation, DuoNebs standing, albuterol as needed. Continue Symbicort, Spiriva and Solu-Medrol 40 every 8 hours. Insulin sliding scale while on Solu-Medrol, azithromycin, Tamiflu, BiPAP with pulmonary consult to manage BiPAP. Repeat ABG in an hour. For CHF exacerbation will get an echo, serial tropes, serial EKGs. This is likely secondary to the flu. Rule out ACS. Will also help reduce the preload and help with CHF exacerbation, Lasix 40 mg twice a day. Strict intake and output, elevate head of bed, daily weights. Will submit TSH. Will continue potassium supplements. Hypertension. Will continue ramipril, this is his home medication, as well as Lasix and Coreg. Hyperlipidemia. Continue Lipitor. Gastroesophageal reflux disease (GERD). Continue omeprazole. History of coronary artery disease. Continue aspirin. Supportive deep vein thrombosis (DVT) prophylaxis. Heparin subcu. Gastrointestinal (GI) prophylaxis. Not indicated. Diet. Cardiac. Fluid restriction. To be seen by the sustainable products marketing manager in the a.m.
--- NOTE | 2019-02-07 07:39 | ECGEPIP ---
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
[2019-02-07] MEDS: IPRATROPIUM 0.5MG/ALBUTEROL 2.5MG INH SOL UD 3ML (DUONEB)(J7620) NEB SCH ×4 (07:43→20:00)
[2019-02-07] MEDS: SYMBICORT 160/4.5MCG INHALER 6GM INH SCH ×2 (07:44→20:00)
--- NOTE | 2019-02-07 07:46 | CR ---
DATE OF CONSULTATION: 02/07/2019 History was obtained of from the chart and collateral information as well as some history from the patient. He is a somewhat poor historian and is drowsy and having garbled speech which is difficult to understand with a face mask on. HISTORY OF PRESENT ILLNESS: The patient is a 58-year-old male with a past medical history of morbid obesity, congestive heart failure (CHF), chronic obstructive pulmonary disease (COPD) on chronic oxygen supplementation approximately 2-4 liters per minute, obstructive sleep apnea (JESUS) on CPAP, history of coronary artery disease (CAD) with myocardial infarction ([place]), bipolar disorder, hypertension, hyperlipidemia, history of noncompliance who presented to the ED with increasing shortness of breath and cough for the past week or more. The patient had complained of increasing cough, shortness of breath with occasional wheezing for at least the past week, maybe even 2 weeks or longer. He has also noted some increasing orthopnea and PND. The patient denies any chest pains. He denied any recent fevers or chills. He does have a history of chronic lower extremity edema. Unclear if it has increased recently. In the emergency department, the patient was noted to be wheezing diffusely and desaturating on his usual nasal cannula oxygen which is anywhere from 2-4 liters per minute. He was given Solu-Medrol 125 mg and DuoNeb treatment with some improvement in his breathing. He was also lethargic on admission and falling asleep easily during examination. He had ABG done which showed evidence of acute on chronic hypercarbic respiratory failure. He was placed on BiPAP in the emergency department and reported some improvement with his breathing symptoms with the BiPAP. The patient was also found to be influenza A positive. He has been afebrile, is not tachycardic, is mildly tachypneic and hypertensive. PAST MEDICAL HISTORY: 1. Congestive heart failure with a reportedly preserved ejection fraction. 2. Chronic obstructive pulmonary disease (COPD). 3. Coronary artery disease status post myocardial infarction times two. 4. Obstructive sleep apnea on CPAP. 5. Bipolar disorder. 6. Morbid obesity. 7. Hypertension. 8. Hyperlipidemia. 9. History of atrophic right kidney. 10. History of seizures in the past and possible syncope. 11. History of gastroesophageal reflux disease. PAST SURGICAL HISTORY: Endoscopy. Colonoscopy. ALLERGIES: RAMIPRIL reportedly from his last admission in 2018. It gives him hives and angioedema, anaphylaxis. His home medication list, however, shows ramipril and he does not have any documented allergies. HOME MEDICATIONS: - albuterol nebulizers - cyclobenzaprine - furosemide 80 mg twice daily - Spiriva - aspirin - Symbicort - carvedilol - Nitro as needed - omeprazole - potassium chloride - ramipril The patient's previous admission also listed the medication of spironolactone and aripiprazole as well as atorvastatin. SOCIAL HISTORY: The patient is and lives with his who is blind and they currently do not have any assistance in the home. The patient is a current active smoker of at least 4-5 cigarettes a day for many years. He is currently on disability. PHYSICAL EXAMINATION: Temperature is 99.4, pulse is 69, respirations 18, blood pressure 147/66, oxygen saturation 96% on 50% FiO2 on the BiPAP. General: The patient is morbidly obese. He is unkempt and malodorous. His speech is somewhat garbled. He appears comfortable and is not using accessory muscles of respiration currently. Is drowsy but arousable. HEENT: Normocephalic, atraumatic. Pupils are reactive. The patient is edentulous. Neck: He is morbidly obese. Unable to appreciate JVD due to body habitus. Cardiac: He has regular rate and rhythm. There is distant heart sounds but a normal S1, S2 and unable to appreciate any murmurs. Lungs: Patient has diminished air entry bilaterally with wheezes and crackles at the bases. Abdomen: The patient is morbidly obese. Unable to appreciate any organomegaly due to his body habitus. He has an erythematous rash in his inguinal region and in the folds of his abdominal pannus, appears to be fungal in nature with a yeasty smell. He has some slight skin breakdown as well on the scrotum which is also erythematous. He has no sacral decubitus ulcers on exam. Lower extremities: Patient has +1-2 pitting edema bilateral lower extremities with venous stasis changes as well as what appears to be dirt on the skin. His feet bilaterally have severe onychomycosis and dark black and crusting likely dirt and other material on his toes. LABORATORY DATA: WBC 7.6, hemoglobin 14.5, platelets 179. Chemistry: Sodium 136, potassium 4.4, chloride 94, bicarb 38, BUN 23, creatinine 0.90, glucose 103. AST 66, ALT 146, alkaline phosphatase 89, bili normal. Troponins were negative. BMP was 705. ABG on admission: pH 7.232, pCO2 of 99.4, pO2 of 68.2. Chest x-ray showed pulmonary vascular congestion and likely small bilateral effusions with atelectasis in the lower lobes versus consolidation. There is also some cardiomegaly. ASSESSMENT/PLAN: The patient is a 58-year-old male with a history of congestive heart failure, chronic obstructive pulmonary disease (COPD), coronary artery disease, obstructive sleep apnea on CPAP, history of medical noncompliance who presented with worsening shortness of breath, cough and wheezing. The patient was noted to have acute on chronic hypercapnic and hypoxemic respiratory failure. He was also influenza A positive. However he reports his symptoms have been going on for a week or more. The patient also was noted to have increased BMP and a chest x-ray suggesting a component of fluid overload. The patient does have some lower extremity edema, some of which is chronic, unclear how much is worsening. Patient also appears unkempt, malodorous and has significantly poor hygiene on his integument. Suspect the patient has not been compliant with his medications or with any medical followup. Patient likely with acute chronic obstructive pulmonary disease (COPD) exacerbation possibly secondary to influenza A as well as likely decompensated congestive heart failure. The patient was placed on noninvasive positive pressure ventilation. Settings were adjusted to 20 over 10 with respiratory rate of 12 and FIO2 decreased at 45%. Will repeat an ABG and adjust settings as needed. Continue with Solu-Medrol 40 mg every 8 hours and DuoNebs [id number] as well as azithromycin for his COPD exacerbation. He is afebrile. He has no leukocytosis and on x-ray he most likely has atelectasis and effusions versus consolidation. Would hold off on further antibiotics for pneumonia at this time. Continue with Tamiflu and droplet precautions for influenza. Would continue with diuresis. Increase Lasix to 60 mg IV twice daily with first dose now. Will place a Baeza to monitor ins and outs with a goal of being net negative 1.5 liters. Would continue to trend cardiac enzymes and would get a repeat echo on this admission. Will discontinue his ramipril as there is questionable history of angioedema. Once the patient is able to provide a better history, will ask him about his drug allergies. Nystatin ordered for his significant fungal rash in his inguinal region and abdominal pannus folds. Will place a podiatry consult as well given his significant onychomycosis in his feet bilaterally. Deep venous thrombosis (DVT) prophylaxis with heparin. The patient is FULL CODE. Would place a Patient and Family Services consult as suspect he is likely having difficulty caring for himself at home.
--- NOTE | 2019-02-07 07:57 | REP ---
Chest a single frontal view, 11:59 p.m.: Comparison is 12/15/2017. There is cardiomegaly, unchanged. The previous interstitial infiltrates have resolved. There are no definite pleural effusions. The tesha, mediastinum, and skeletal structures are unremarkable. Impression: Cardiomegaly, unchanged. The previous interstitial infiltrates have resolved. Electronically Signed by Abram Mcneal MD 02/07/2019 07:49 A
[2019-02-07] MEDS: CARVedilol 6.25 MG TAB PO SCH ×2 (08:47→21:06)
[2019-02-07] MEDS: ASPIRIN 81 MG CHEW TABLET PO SCH (08:47)
[2019-02-07] MEDS: NYSTATIN OINTMENT 15 GM TOP SCH ×2 (08:48→21:06)
[2019-02-07] MEDS: POTASSIUM CHLORIDE 10 MEQ SR TABLET PO SCH ×2 (08:48→21:06)
[2019-02-07] MEDS: OSELTAMIVIR PHOSPHATE 75 MG CAP (TAMIFLU) PO SCH ×2 (08:48→21:05)
[2019-02-07 08:55] LABS: ABG BASE EXCESS 8.8 (-2.0-2.0); ABG HCO3 37.5 MEQ/L (22.0-26.0); ABG O2 SATURATION 96.7 % (95.0-99.0); ABG PARTIAL PRESSURE O2 89.8 mmHg (75.0-100.0); ABG STANDARD HCO3 32.6 MEQ/L (22.0-26.0); ABG TOTAL CO2 39.6 MEQ/L (23.0-31.0); ABG pH (ARTERIAL) 7.349 UNITS (7.350-7.450)
[2019-02-07 08:57] LABS: ABG PARTIAL PRESSURE CO2 69.6 mmHg (35.0-45.0)
[2019-02-07] MEDS ORDERED: RAMIPRIL 5 MG CAP PO SCH (09:00)
[2019-02-07 09:06] LABS: ACETAMINOPHEN LEVEL < 2.0 UG/ML (10.0-30.0); FREE THYROXINE INDEX 2.8 % (1.4-3.8); T UPTAKE 33 % (33-40); THYROXINE (T4) 8.4 UG/DL (4.5-12.0)
[2019-02-07] MEDS: methylPREDNISolone INJ 40 MG/1 ML VIAL (J2920) IV SCH ×2 (10:39→18:10)
[2019-02-07] MEDS: NYSTATIN 100,000 UNITS/GM TOPICAL PWD 15 GM TOP PRN (15:16)
[2019-02-07 15:24] LABS: ABG HCO3 42.2 MEQ/L (22.0-26.0); ABG O2 SATURATION 87.7 % (95.0-99.0); ABG PARTIAL PRESSURE O2 55.1 mmHg (75.0-100.0); ABG STANDARD HCO3 35.5 MEQ/L (22.0-26.0); ABG TOTAL CO2 44.7 MEQ/L (23.0-31.0); ABG pH (ARTERIAL) 7.329 UNITS (7.350-7.450)
[2019-02-07] MEDS: OMEPRAZOLE 20 MG CAP PO SCH (18:10)
--- NOTE | 2019-02-07 19:54 | IPN ---
DATE: 02/07/2019 Patient seen and examined in the ICU. Currently on BiPAP with AVAPS mode. Speaks in full sentences. Reported much better, arousable to verbal stimuli. Denies any chest pain, pressure or discomfort. Wanted provider to contact his friend. Patient morbidly obese, afebrile. VITAL SIGNS: Temperature 98.4, pulse 65, respirations 19, blood pressure 145/77, pulse oximetry 96%. BiPAP with AVAPS mode. LABORATORY: ABG 7.35, 69.6, 89.8, 37.5. WBC 7.6, hemoglobin and hematocrit 14.5/45.6, platelets 179. Chemistry: Sodium 136, potassium 4.6, chloride 92, bicarbonate 40, BUN 23, creatinine 0.98. PHYSICAL EXAMINATION: GENERAL: Patient morbidly obese. Arousable to verbal stimuli. Alert. Answers questions appropriately. HEENT: Normocephalic, atraumatic. PULMONARY: Diminished breath sounds bilateral. Bilateral wheeze. CARDIAC: Regular, S1, S2. ABDOMEN: Soft, nontender, positive bowel sounds. Patient with bilateral groin erythema and skin breakdown. EXTREMITIES: 1+ edema with bilateral onychomycosis. Patient disheveled. ASSESSMENT AND PLAN: 58-year-old patient with underlying medical history of morbid obesity, poorly compliant, history of diastolic congestive heart failure, COPD, obstructive sleep apnea, on CPAP at home on a pressure of 13 cm of water, coronary arterial disease, hypertension, dyslipidemia, legally blind presented with shortness of breath, increased somnolence, cough for the last week found to be in acute hypercarbic respiratory failure. Patient on 2 liters oxygen at home. PROBLEMS: 1. Acute hypercarbic respiratory failure secondary to influenza A with obesity hypoventilation syndrome. Continue DuoNeb, Symbicort, Tamiflu, nebulizer treatment. ABGs appreciated. Patient currently did not respond well to BiPAP. Currently is switched to AVAPS mode with EPAP of 10, backup rate of 16. IPAP range of 13 to 25. Goal tidal volume of 470 and 35% FiO2 with improvement of ABG. Repeat ABG appreciated. Will take the patient off of the AVAPS before meal and resume 2 hours after. Will get ABG one hour after AVAPS was removed. Pulmonology has been consulted. 2. Acute congestive heart failure (CHF) exacerbation with diastolic dysfunction. Will get echocardiogram. Serial cardiac enzymes appreciated. Diuresis with Lasix. Continue beta blockers. Treatment with AVAPS as mentioned above. 3. Morbid obesity complicating care. 4. Hypertension. Continue Lasix, Coreg. Holding LI. 5. Dyslipidemia. Continue statin. 6. GERD. Continue PPI. 7. Coronary arterial disease. Continue aspirin, statin, beta brian. Holding LI. 8. Deep venous thrombosis (DVT) prophylaxis. Heparin subcutaneous. 9. Onychomycosis. Will need followup with podiatry. Supportive care and hygiene as per nursing staff. 10. Candidiasis. Nystatin prescribed. 11. Obstructive sleep apnea. Continue current management as mentioned above. Eventually will place the patient on home CPAP setting of 13.. DISPOSITION: Pending clinical improvement. Will slowly wean the patient off of AVAPS and eventually getting the patient to home CPAP settings.
[2019-02-07] MEDS: EUCERIN 120GM CREAM TOP SCH (21:05)
[2019-02-07] MEDS: FUROSEMIDE 100 MG/10 ML VIAL (J1940) IV SCH (21:06)
[2019-02-08] VITALS (14 sets, daily range): BP systolic 93–149; BP diastolic 50–71; O2SAT 94
[2019-02-08] MEDS: IPRATROPIUM 0.5MG/ALBUTEROL 2.5MG INH SOL UD 3ML (DUONEB)(J7620) NEB SCH ×6 (00:27→19:43)
[2019-02-08] MEDS: methylPREDNISolone INJ 40 MG/1 ML VIAL (J2920) IV SCH ×2 (01:29→13:33)
[2019-02-08 04:29] LABS: HEMATOCRIT 45.2 % (42.0-52.0); HEMOGLOBIN 14.1 g/dl (13.5-17.5); MEAN CORPUSCULAR HEMOGLOBIN 31.3 pg (27.0-33.0); MEAN CORPUSCULAR HGB CONC 31.2 g/dl (32.0-36.5); MEAN CORPUSCULAR VOLUME 100.2 fl (80.0-96.0); PLATELET COUNT, AUTOMATED 200 10^3/uL (150-450); RED BLOOD COUNT 4.51 10^6/uL (4.30-6.10); WHITE BLOOD COUNT 7.8 10^3/uL (4.0-10.0)
[2019-02-08 04:53] LABS: ALBUMIN 2.7 GM/DL (3.2-5.2); ALT/SGPT 107 U/L (12-78); BILIRUBIN,TOTAL 0.5 MG/DL (0.2-1.0); BLOOD UREA NITROGEN 28 MG/DL (7-18); C REACTIVE PROTEIN QUANTITATIV 2.94 MG/DL (0.00-0.30); CALCIUM LEVEL 8.4 MG/DL (8.8-10.2); CARBON DIOXIDE LEVEL 42 MEQ/L (21-32); CHLORIDE LEVEL 94 MEQ/L (98-107); CREATININE FOR GFR 0.91 MG/DL (0.70-1.30); GLOMERULAR FILTRATION RATE > 60.0 (>49); GLUCOSE, FASTING 138 MG/DL (70-100); MAGNESIUM LEVEL 2.5 MG/DL (1.8-2.4); POTASSIUM SERUM 4.7 MEQ/L (3.5-5.1); SODIUM LEVEL 136 MEQ/L (136-145); TOTAL PROTEIN 6.5 GM/DL (6.4-8.2)
[2019-02-08] MEDS: AZITHROMYCIN INJ 500 MG, VIAL MATE ADAPTER 1 EACH in D5W 250 ML IV SCH (05:13)
[2019-02-08] MEDS: HEPARIN SOD (PORCINE) 5000 UNITS/ML VIAL SC SCH ×3 (05:13→21:04)
[2019-02-08 05:41] LABS: ABG BASE EXCESS 15.3 (-2.0-2.0); ABG O2 SATURATION 95.8 % (95.0-99.0); ABG PARTIAL PRESSURE O2 79.5 mmHg (75.0-100.0); ABG STANDARD HCO3 39.3 MEQ/L (22.0-26.0); ABG TOTAL CO2 46.2 MEQ/L (23.0-31.0); ABG pH (ARTERIAL) 7.405 UNITS (7.350-7.450)
[2019-02-08 05:42] LABS: ABG PARTIAL PRESSURE CO2 71.8 mmHg (35.0-45.0)
[2019-02-08] MEDS: FUROSEMIDE 100 MG/10 ML VIAL (J1940) IV SCH ×2 (08:28→21:04)
[2019-02-08] MEDS: POTASSIUM CHLORIDE 10 MEQ SR TABLET PO SCH ×2 (08:30→21:03)
[2019-02-08] MEDS: OSELTAMIVIR PHOSPHATE 75 MG CAP (TAMIFLU) PO SCH ×2 (08:31→21:03)
[2019-02-08] MEDS: ASPIRIN 81 MG CHEW TABLET PO SCH (08:31)
[2019-02-08] MEDS: CARVedilol 6.25 MG TAB PO SCH ×2 (08:31→21:03)
[2019-02-08] MEDS: EUCERIN 120GM CREAM TOP SCH ×3 (08:32→21:02)
[2019-02-08] MEDS: NYSTATIN OINTMENT 15 GM TOP SCH ×2 (08:32→21:04)
--- NOTE | 2019-02-08 08:32 | ECHO ---
DATE OF PROCEDURE:02/07/2019 REFERRING PHYSICIAN: Monday INDICATION: Dyspnea. Height 165 cm Weight 146 kg DIMENSIONS: IVS 1.3 LV 5.5 LVPW 1.3 LA 4.1 Aorta 3.7 IVC 2.7 Mitral E wave velocity 84, A-wave 94 E prime septal 4.5, E prime lateral 6.1 FINDINGS: The study is of rather limited technical quality corresponding to patient's body habitus. Left ventricle is on upper limits of normal size. There is normal LV systolic function. Based on limitation of the study I certainly cannot rule out subtle wall motion abnormalities but I do estimate overall EF around 65-70%. Right ventricle was poorly visualized but does not appear grossly enlarged. Left atrium is at least mildly enlarged. Right atrium appears normal based on limited views. Neither one of the four cardiac valves were well seen. Limited views of aortic, mitral and tricuspid valves appear normal. Pulmonic valve was not seen. There is pericardial fat pad but no visualized effusion. Inferior vena cava is markedly dilated but there is some collapse with respiration. Aortic root and aortic arch appear normal. Abdominal aorta was not seen. Doppler interrogation reveals no significant aortic or mitral valvular disease. There is no tricuspid insufficiency and consequently I could not estimate pulmonary artery pressure. Mitral inflow pattern and tissue Doppler imaging of mitral annulus reveal grade 1 diastolic dysfunction. CONCLUSIONS: 1. Study is of rather limited technical quality due to underlying body habitus. 2. Left ventricle is on upper limits of normal size, there is mild left ventricular hypertrophy and preserved LV systolic function. Grade 1 diastolic dysfunction. 3. No significant valvular disease. 4. Elevated central venous pressure. 5. Unable to estimate pulmonary artery pressure. COMMENT: Subacute bacterial endocarditis (SBE) is not recommended. MTDD
[2019-02-08] MEDS: SYMBICORT 160/4.5MCG INHALER 6GM INH SCH ×2 (08:45→19:43)
[2019-02-08 10:40] LABS: HEPATITIS B SURFACE ANTIGEN NEGATIVE (NEGATIVE)
[2019-02-08 11:08] LABS: HEPATITIS B CORE ANTIBODY IGM NEGATIVE (NEGATIVE)
[2019-02-08 11:10] LABS: HEPATITIS A ANTIBODY IGM NEGATIVE (NEGATIVE)
--- NOTE | 2019-02-08 14:59 | CCN ---
DATE: 02/08/2019 Mr. Berger remains critically ill with acute on chronic respiratory failure. He did well on APAP overnight and he is off the device this morning. He indicates no discomfort. He state she tolerated the APAP well. He denies any pain or shortness of breath. No nausea or abdominal pain. Mr. Berger is a bit vague on his history. When asked about his CPAP device he initially stated he was not getting things from [facility], but then stated that he last wore the device three days before he came into the hospital. He does not remember who evaluated him for sleep apnea. I reviewed the records at [facility] and he did not have his study here. I contacted [facility] and he did not have his study there. He had been scheduled to see one of the providers at [facility] but no showed that visit in 2013. The referral at that time was for continued management of JESUS. He reports that he is on oxygen at 3 liters continuously. He reports taking his nebulized medication frequently. OBJECTIVE: PHYSICAL EXAMINATION: GENERAL: Mr. Berger is lying in bed in no acute distress. He can complete full sentences. No cough throughout the evaluation. VITAL SIGNS: Temperature 97.9, pulse 70, respiratory rate in the high teens to low 20s, blood pressure 145/67, SpO2 in the 90s on an FiO2 of 8 liters. HEENT: Anicteric, PERRL. Nares: Patent bilaterally. Moist mucosa. Oropharynx clear. Mildly dry mucosa. Mallampati 4. NECK: Supple, without apparent JVD, difficult exam, without thyromegaly or masses, trachea is midline. LYMPH: Without cervical or supraclavicular lymphadenopathy. LUNGS: Symmetric excursion, fair air entry, bibasilar crackles, no wheeze or rhonchi. Normal I:E. CARDIOVASCULAR: Regular rate and rhythm with a normal S1, S2. No murmur, rub or gallop appreciated. ABDOMEN: Positive bowel sounds, soft, obese, nontender. Not able to truly assess organomegaly given body habitus. LOWER EXTREMITIES: 1-2+ pitting edema without clubbing or cyanosis, severe onychomycosis bilaterally. LABORATORY DATA: CBC showed a hemoglobin of 14.1, hematocrit 45.2, and platelet count of 200,000, white blood cell count 7800. Chemistries show a sodium of 136, potassium 4.7, chloride 94, bicarbonate 42, anion gap 0, BUN 28, creatinine 0.9, glucose 138, calcium 8.4, total bilirubin 2.5, AST 31, ALT 107, alkaline phosphatase 73, CRP 2.94, total protein 6.5, albumin 2.7. Arterial blood gas this morning on APAP with a PEEP of 10 was 7.41/72/80 with a measured saturation of 96% and a base excess of 15.3. IMPRESSION: 1. Acute on chronic respiratory failure. I suspect likely in part secondary to influenza causing a perturbation of his underlying processes. He carries a label of COPD but I do not know his chemistries. He has obstructive sleep apnea and likely obesity hypoventilation syndrome. 2. Influenza A positive. 3. Obstructive sleep apnea, reportedly treated by CPAP at as an outpatient, unknown where studies were done. 4. Morbid obesity. 5. Possible COPD. 6. CHF. 7. CAD with a history of myocardial infarction times two. 8. Bipolar disease. 9. Hyperlipidemia. 10. Atrophic right kidney. 11. Deep vein thrombosis (DVT) prophylaxis in place with subcutaneous heparin. 12. Stress ulcer prophylaxis in place with proton pump inhibitor (PPI). 13. Nutrition. Eating. 14. Possible COPD exacerbation, on corticosteroids and bronchodilators. RECOMMENDATIONS: 1. Will change his JESUS support to naps and nocturnally. 2. Will convert to bilevel device if possible with plans on a tabletop until eventual discharge. 3. We will try to obtain his polysomnogram report from [facility]. I am not certain that is or what his weight is, but I suspect that he is going to need bilevel therapy and not CPAP therapy. 4. We will decrease his corticosteroids as I am not certain that he truly has an exacerbation, if he has underlying COPD as I am more suspicious of obesity hypoventilation though he may have both. 5. Will continue other supportive care. If it is felt that he truly has COPD, may want to add an LAMA to his regimen. Critical care time 35 minutes, not including procedure time.
[2019-02-08] MEDS: OMEPRAZOLE 20 MG CAP PO SCH (17:48)
--- NOTE | 2019-02-08 19:51 | IPNPDOC ---
Text Note Date of Service The patient was seen on 02/08/19. NOTE improved respiration. on bipap for nap and bedtime. denied chest pain. reported cough. PHYSICAL EXAMINATION: GENERAL: Patient morbidly obese. Arousable to verbal stimuli. Alert. Answers questions appropriately. HEENT: Normocephalic, atraumatic. PULMONARY: Diminished breath sounds bilateral. Bilateral wheeze improved CARDIAC: Regular, S1, S2. ABDOMEN: Soft, nontender, positive bowel sounds. Patient with bilateral groin erythema and skin breakdown. EXTREMITIES: 1+ edema with bilateral onychomycosis. Patient disheveled. ASSESSMENT AND PLAN: 58-year-old patient with underlying medical history of morbid obesity, poorly compliant, history of diastolic congestive heart failure, COPD, obstructive sleep apnea, on CPAP at home on a pressure of 13 cm of water, coronary arterial disease, hypertension, dyslipidemia, legally blind presented with shortness of breath, increased somnolence, cough for the last week found to be in acute hypercarbic respiratory failure. Patient on 2 liters oxygen at home. PROBLEMS: 1. Acute hypercarbic respiratory failure secondary to influenza A with obesity hypoventilation syndrome. Continue DuoNeb, Symbicort, Tamiflu, nebulizer treatment. ABGs appreciated. steroid taper. tried Bipap 13/11 by pulmonary repeat abg further rec per pulmonar 2. Acute congestive heart failure (CHF) exacerbation with diastolic dysfunction. Will get echocardiogram. Serial cardiac enzymes appreciated. Diuresis with Lasix. Continue beta blockers. Treatment with BIPAP 3. Morbid obesity complicating care. 4. Hypertension. Continue Lasix, Coreg. Holding LI. 5. Dyslipidemia. Continue statin. 6. GERD. Continue PPI. 7. Coronary arterial disease. Continue aspirin, statin, beta brian. Holding LI. 8. Deep venous thrombosis (DVT) prophylaxis. Heparin subcutaneous. 9. Onychomycosis. Will need followup with podiatry. Supportive care and hygiene as per nursing staff. 10. Candidiasis. Nystatin prescribed. 11. Obstructive sleep apnea. Continue current management as mentioned above. Eventually will place the patient on home CPAP setting of 13.. DISPOSITION: Pending clinical improvement. VS,Fishbone, I+O VS, Fishbone, I+O Laboratory Tests 02/08/19 04:14 Red Blood Count 4.51, Mean Corpuscular Volume 100.2 H, Mean Corpuscular Hemoglobin 31.3, Mean Corpuscular Hemoglobin Concent 31.2 L, Red Cell Distribution Width 12.2, Calcium Level 8.4 L, Aspartate Amino Transf (AST/SGOT) 31, Alanine Aminotransferase (ALT/SGPT) 107 H, Alkaline Phosphatase 73, Total Bilirubin 0.5, Total Protein 6.5, Albumin 2.7 L Vital Signs Date Time Temp Pulse Resp B/P (MAP) Pulse Ox O2 Delivery O2 Flow Rate FiO2 02/08/19 19:43 40 02/08/19 18:00 60 127/61 (83) 96 6.0 02/08/19 16:00 97.0 18 02/08/19 00:27 BIPAP/CPAP I&O- Last 24 Hours up to 6 AM 02/08/19 06:00 Intake Total 590 ml Output Total 2570 ml Balance -1980 ml MATTIE FOX MD Feb 08, 2019 19:51
[2019-02-08] MEDS: NYSTATIN 100,000 UNITS/GM TOPICAL PWD 15 GM TOP PRN (21:05)
[2019-02-09] VITALS (11 sets, daily range): BP systolic 100–143; BP diastolic 54–66
[2019-02-09] MEDS: IPRATROPIUM 0.5MG/ALBUTEROL 2.5MG INH SOL UD 3ML (DUONEB)(J7620) NEB SCH ×6 (00:08→19:46)
[2019-02-09] MEDS: methylPREDNISolone INJ 40 MG/1 ML VIAL (J2920) IV SCH (01:32)
[2019-02-09 05:11] LABS: HEMATOCRIT 47.5 % (42.0-52.0); HEMOGLOBIN 14.6 g/dl (13.5-17.5); MEAN CORPUSCULAR HEMOGLOBIN 31.1 pg (27.0-33.0); MEAN CORPUSCULAR HGB CONC 30.7 g/dl (32.0-36.5); MEAN CORPUSCULAR VOLUME 101.3 fl (80.0-96.0); PLATELET COUNT, AUTOMATED 226 10^3/uL (150-450); RED BLOOD COUNT 4.69 10^6/uL (4.30-6.10)
[2019-02-09] MEDS: HEPARIN SOD (PORCINE) 5000 UNITS/ML VIAL SC SCH ×3 (05:12→21:10)
[2019-02-09] MEDS: AZITHROMYCIN INJ 500 MG, VIAL MATE ADAPTER 1 EACH in D5W 250 ML IV SCH (05:12)
[2019-02-09 07:30] LABS: ALBUMIN 2.8 GM/DL (3.2-5.2); ALT/SGPT 87 U/L (12-78); BILIRUBIN,TOTAL 0.5 MG/DL (0.2-1.0); BLOOD UREA NITROGEN 33 MG/DL (7-18); CALCIUM LEVEL 8.6 MG/DL (8.8-10.2); CARBON DIOXIDE LEVEL 41 MEQ/L (21-32); CHLORIDE LEVEL 92 MEQ/L (98-107); CREATININE FOR GFR 0.97 MG/DL (0.70-1.30); GLOMERULAR FILTRATION RATE > 60.0 (>49); GLUCOSE, FASTING 185 MG/DL (70-100); MAGNESIUM LEVEL 2.5 MG/DL (1.8-2.4); POTASSIUM SERUM 4.5 MEQ/L (3.5-5.1); SODIUM LEVEL 135 MEQ/L (136-145); TOTAL PROTEIN 6.6 GM/DL (6.4-8.2)
[2019-02-09] MEDS: FUROSEMIDE 100 MG/10 ML VIAL (J1940) IV SCH ×2 (09:12→21:11)
[2019-02-09] MEDS: ASPIRIN 81 MG CHEW TABLET PO SCH (09:12)
[2019-02-09] MEDS: POTASSIUM CHLORIDE 10 MEQ SR TABLET PO SCH ×2 (09:13→21:09)
[2019-02-09] MEDS: CARVedilol 6.25 MG TAB PO SCH ×2 (09:13→21:09)
[2019-02-09] MEDS: EUCERIN 120GM CREAM TOP SCH ×3 (09:13→21:09)
[2019-02-09] MEDS: OSELTAMIVIR PHOSPHATE 75 MG CAP (TAMIFLU) PO SCH ×2 (09:13→21:09)
[2019-02-09] MEDS: NYSTATIN OINTMENT 15 GM TOP SCH ×2 (09:14→21:10)
[2019-02-09] MEDS: NYSTATIN 100,000 UNITS/GM TOPICAL PWD 15 GM TOP PRN (09:14)
[2019-02-09 09:33] LABS: ABG BASE EXCESS 12.7 (-2.0-2.0); ABG HCO3 39.6 MEQ/L (22.0-26.0); ABG O2 SATURATION 92.8 % (95.0-99.0); ABG PARTIAL PRESSURE CO2 59.4 mmHg (35.0-45.0); ABG PARTIAL PRESSURE O2 65.2 mmHg (75.0-100.0); ABG STANDARD HCO3 36.4 MEQ/L (22.0-26.0); ABG TOTAL CO2 41.4 MEQ/L (23.0-31.0); ABG pH (ARTERIAL) 7.442 UNITS (7.350-7.450)
[2019-02-09] MEDS: SYMBICORT 160/4.5MCG INHALER 6GM INH SCH ×2 (12:00→19:46)
[2019-02-09] MEDS: TIOTROPIUM INHALER/CAPSULE (SPIRIVA) INH SCH (16:13)
--- NOTE | 2019-02-09 17:30 | IPNPDOC ---
Text Note Date of Service The patient was seen on 02/09/19. NOTE improved respiration. on bipap for nap and bedtime. denied chest pain. reported cough. PHYSICAL EXAMINATION: GENERAL: Patient morbidly obese. Arousable to verbal stimuli. Alert. speaks in full sentences HEENT: Normocephalic, atraumatic. PULMONARY: Diminished breath sounds bilateral. Mild wheeze b/l CARDIAC: Regular, S1, S2. ABDOMEN: Soft, nontender, positive bowel sounds. Patient with bilateral groin erythema and skin breakdown. EXTREMITIES: 1+ edema with bilateral onychomycosis improved. Patient disheveled. ASSESSMENT AND PLAN: 58-year-old patient with underlying medical history of morbid obesity, poorly compliant, history of diastolic congestive heart failure, COPD, obstructive sleep apnea, on CPAP at home on a pressure of 13 cm of water, coronary arterial disease, hypertension, dyslipidemia, legally blind presented with shortness of breath, increased somnolence, cough for the last week found to be in acute hypercarbic respiratory failure. Patient on 2 liters oxygen at home. PROBLEMS: 1. Acute hypercarbic respiratory failure secondary to influenza A with obesity hypoventilation syndrome. Continue DuoNeb, Symbicort, Spiriva, Tamiflu, nebulizer treatment. ABGs appreciated. steroid taper. tried Bipap 13/11 by pulmonary repeat abg further rec per pulmonary 2. Acute congestive heart failure (CHF) exacerbation with diastolic dysfunction. Will get echocardiogram. Serial cardiac enzymes appreciated. Diuresis with Lasix. Continue beta blockers. Treatment with BIPAP 3. Morbid obesity complicating care. 4. Hypertension. Continue Lasix, Coreg. Holding LI. 5. Dyslipidemia. Continue statin. 6. GERD. Continue PPI. 7. Coronary arterial disease. Continue aspirin, statin, beta brian, lasic. Holding LI. 8. Deep venous thrombosis (DVT) prophylaxis. Heparin subcutaneous. 9. Onychomycosis. Will need followup with podiatry. Supportive care and hygiene as per nursing staff. improved 10. Candidiasis. Nystatin prescribed. 11. Obstructive sleep apnea. Continue current management as mentioned above. BIPAP as per pulmonary, will evaluate home machine DISPOSITION: Pending clinical improvement. VS,Fishbone, I+O VS, Fishbone, I+O Laboratory Tests 02/09/19 04:41 Red Blood Count 4.69, Mean Corpuscular Volume 101.3 H, Mean Corpuscular Hemoglobin 31.1, Mean Corpuscular Hemoglobin Concent 30.7 L, Red Cell Distribution Width 12.4 02/09/19 06:40 Calcium Level 8.6 L, Aspartate Amino Transf (AST/SGOT) 22, Alanine Aminotransferase (ALT/SGPT) 87 H, Alkaline Phosphatase 63, Total Bilirubin 0.5, Total Protein 6.6, Albumin 2.8 L Vital Signs Date Time Temp Pulse Resp B/P (MAP) Pulse Ox O2 Delivery O2 Flow Rate FiO2 02/09/19 12:00 5.0 02/09/19 10:00 59 20 126/59 (81) 94 02/09/19 08:00 40 02/09/19 08:00 97.2 02/08/19 00:27 BIPAP/CPAP I&O- Last 24 Hours up to 6 AM 02/09/19 06:00 Intake Total 2535 ml Output Total 2625 ml Balance -90 ml MATTIE FOX MD Feb 09, 2019 17:30
[2019-02-09] MEDS: OMEPRAZOLE 20 MG CAP PO SCH (18:14)
[2019-02-10] VITALS (10 sets, daily range): BP systolic 108–139; BP diastolic 58–73
[2019-02-10] MEDS: AZITHROMYCIN INJ 500 MG, VIAL MATE ADAPTER 1 EACH in D5W 250 ML IV SCH (05:07)
[2019-02-10] MEDS: HEPARIN SOD (PORCINE) 5000 UNITS/ML VIAL SC SCH ×3 (05:08→21:07)
[2019-02-10 05:34] LABS: HEMATOCRIT 47.6 % (42.0-52.0); HEMOGLOBIN 14.9 g/dl (13.5-17.5); MEAN CORPUSCULAR HEMOGLOBIN 31.2 pg (27.0-33.0); MEAN CORPUSCULAR HGB CONC 31.3 g/dl (32.0-36.5); MEAN CORPUSCULAR VOLUME 99.6 fl (80.0-96.0); PLATELET COUNT, AUTOMATED 242 10^3/uL (150-450); RED BLOOD COUNT 4.78 10^6/uL (4.30-6.10); WHITE BLOOD COUNT 9.3 10^3/uL (4.0-10.0)
[2019-02-10 06:05] LABS: ALT/SGPT 81 U/L (12-78); BILIRUBIN,TOTAL 0.6 MG/DL (0.2-1.0); BLOOD UREA NITROGEN 35 MG/DL (7-18); CALCIUM LEVEL 8.6 MG/DL (8.8-10.2); CARBON DIOXIDE LEVEL 42 MEQ/L (21-32); CHLORIDE LEVEL 95 MEQ/L (98-107); CREATININE FOR GFR 0.97 MG/DL (0.70-1.30); GLOMERULAR FILTRATION RATE > 60.0 (>49); GLUCOSE, FASTING 96 MG/DL (70-100); MAGNESIUM LEVEL 2.5 MG/DL (1.8-2.4); POTASSIUM SERUM 4.1 MEQ/L (3.5-5.1); SODIUM LEVEL 141 MEQ/L (136-145); TOTAL PROTEIN 6.7 GM/DL (6.4-8.2)
[2019-02-10] MEDS: SYMBICORT 160/4.5MCG INHALER 6GM INH SCH ×2 (07:26→19:49)
[2019-02-10] MEDS: IPRATROPIUM 0.5MG/ALBUTEROL 2.5MG INH SOL UD 3ML (DUONEB)(J7620) NEB SCH ×4 (07:26→19:49)
[2019-02-10] MEDS: TIOTROPIUM INHALER/CAPSULE (SPIRIVA) INH SCH (07:26)
[2019-02-10] MEDS ORDERED: methylPREDNISolone INJ 40 MG/1 ML VIAL (J2920) IV SCH (09:00)
[2019-02-10] MEDS: ASPIRIN 81 MG CHEW TABLET PO SCH (09:43)
[2019-02-10] MEDS: OSELTAMIVIR PHOSPHATE 75 MG CAP (TAMIFLU) PO SCH ×2 (09:43→21:06)
[2019-02-10] MEDS: POTASSIUM CHLORIDE 10 MEQ SR TABLET PO SCH ×2 (09:43→21:07)
[2019-02-10] MEDS: FUROSEMIDE 100 MG/10 ML VIAL (J1940) IV SCH ×2 (09:44→21:06)
[2019-02-10] MEDS: CARVedilol 6.25 MG TAB PO SCH ×2 (09:44→21:06)
[2019-02-10] MEDS: EUCERIN 120GM CREAM TOP SCH ×3 (09:45→21:06)
[2019-02-10] MEDS: NYSTATIN OINTMENT 15 GM TOP SCH ×2 (09:46→21:07)
--- NOTE | 2019-02-10 14:32 | IPNPDOC ---
Text Note Date of Service The patient was seen on 02/10/19. NOTE improved respiration. On NC, speaks in full sentences. denied chest pain. reported cough. PHYSICAL EXAMINATION: GENERAL: Patient morbidly obese. Alert. speaks in full sentences HEENT: Normocephalic, atraumatic. PULMONARY: Diminished breath sounds bilateral. Mild wheeze b/l CARDIAC: Regular, S1, S2. ABDOMEN: Soft, nontender, positive bowel sounds. Patient with bilateral groin erythema and skin breakdown. EXTREMITIES: 1+ edema with bilateral onychomycosis improved. ASSESSMENT AND PLAN: 58-year-old patient with underlying medical history of morbid obesity, poorly compliant, history of diastolic congestive heart failure, COPD, obstructive sleep apnea, on CPAP at home on a pressure of 13 cm of water, coronary arterial disease, hypertension, dyslipidemia, legally blind presented with shortness of breath, increased somnolence, cough for the last week found to be in acute hypercarbic respiratory failure. Patient on 2 liters oxygen at home. PROBLEMS: 1. Acute hypercarbic respiratory failure secondary to influenza A with obesity hypoventilation syndrome. Continue DuoNeb, Symbicort, Spiriva, Tamiflu, nebulizer treatment. ABGs appreciated. off steroid. Bipap 13/11 by pulmonary repeat abg further rec per pulmonary. 2. Acute congestive heart failure (CHF) exacerbation with diastolic dysfunction. Will get echocardiogram. Serial cardiac enzymes appreciated. Diuresis with Lasix. Continue beta blockers. Treatment with BIPAP 3. Morbid obesity complicating care. 4. Hypertension. Continue Lasix, Coreg. Holding LI. 5. Dyslipidemia. Continue statin. 6. GERD. Continue PPI. 7. Coronary arterial disease. Continue aspirin, statin, beta brian, lasic. Holding LI. 8. Deep venous thrombosis (DVT) prophylaxis. Heparin subcutaneous. 9. Onychomycosis. Will need followup with podiatry. Supportive care and hygiene as per nursing staff. improved 10. Candidiasis. Nystatin prescribed. 11. Obstructive sleep apnea. Continue current management as mentioned above. BIPAP as per pulmonary, as per pulmonary resume home CPAP upon DC for outpatient repeat sleep study DISPOSITION: Pending clinical improvement. PT VS,Fishbone, I+O VS, Fishbone, I+O Laboratory Tests 02/10/19 04:46 Red Blood Count 4.78, Mean Corpuscular Volume 99.6 H, Mean Corpuscular Hemoglobin 31.2, Mean Corpuscular Hemoglobin Concent 31.3 L, Red Cell Distribution Width 12.4, Calcium Level 8.6 L, Aspartate Amino Transf (AST/SGOT) 28, Alanine Aminotransferase (ALT/SGPT) 81 H, Alkaline Phosphatase 60, Total Bilirubin 0.6, Total Protein 6.7, Albumin 3.0 L Vital Signs Date Time Temp Pulse Resp B/P (MAP) Pulse Ox O2 Delivery O2 Flow Rate FiO2 02/10/19 11:21 57 02/10/19 10:00 136/71 (92) 95 5.0 02/10/19 08:00 97.8 20 02/09/19 08:00 40 02/08/19 00:27 BIPAP/CPAP I&O- Last 24 Hours up to 6 AM 02/10/19 06:00 Intake Total 1815 ml Output Total 2655 ml Balance -840 ml MATTIE FOX MD Feb 10, 2019 14:32
[2019-02-10] MEDS: OMEPRAZOLE 20 MG CAP PO SCH (17:18)
[2019-02-11] VITALS: BP 136/62
[2019-02-11 04:00] VITALS: BP 125/72
[2019-02-11] MEDS: AZITHROMYCIN INJ 500 MG, VIAL MATE ADAPTER 1 EACH in D5W 250 ML IV SCH (05:00)
[2019-02-11] MEDS: HEPARIN SOD (PORCINE) 5000 UNITS/ML VIAL SC SCH ×3 (05:13→21:30)
[2019-02-11 05:16] LABS: HEMATOCRIT 46.1 % (42.0-52.0); HEMOGLOBIN 14.5 g/dl (13.5-17.5); MEAN CORPUSCULAR HEMOGLOBIN 31.3 pg (27.0-33.0); MEAN CORPUSCULAR HGB CONC 31.5 g/dl (32.0-36.5); MEAN CORPUSCULAR VOLUME 99.4 fl (80.0-96.0); PLATELET COUNT, AUTOMATED 241 10^3/uL (150-450); RED BLOOD COUNT 4.64 10^6/uL (4.30-6.10)
[2019-02-11 05:45] LABS: ALBUMIN 2.9 GM/DL (3.2-5.2); ALT/SGPT 80 U/L (12-78); BLOOD UREA NITROGEN 28 MG/DL (7-18); CALCIUM LEVEL 8.4 MG/DL (8.8-10.2); CARBON DIOXIDE LEVEL 43 MEQ/L (21-32); CHLORIDE LEVEL 94 MEQ/L (98-107); CREATININE FOR GFR 0.96 MG/DL (0.70-1.30); GLOMERULAR FILTRATION RATE > 60.0 (>49); GLUCOSE, FASTING 93 MG/DL (70-100); MAGNESIUM LEVEL 2.4 MG/DL (1.8-2.4); POTASSIUM SERUM 3.7 MEQ/L (3.5-5.1); SODIUM LEVEL 139 MEQ/L (136-145); TOTAL PROTEIN 6.5 GM/DL (6.4-8.2)
[2019-02-11 08:00] VITALS: BP 121/63
[2019-02-11] MEDS: IPRATROPIUM 0.5MG/ALBUTEROL 2.5MG INH SOL UD 3ML (DUONEB)(J7620) NEB SCH ×4 (08:00→18:30)
[2019-02-11] MEDS: TIOTROPIUM INHALER/CAPSULE (SPIRIVA) INH SCH (08:04)
[2019-02-11] MEDS: SYMBICORT 160/4.5MCG INHALER 6GM INH SCH ×3 (08:04→21:20)
[2019-02-11] MEDS: ASPIRIN 81 MG CHEW TABLET PO SCH (09:02)
[2019-02-11] MEDS: POTASSIUM CHLORIDE 10 MEQ SR TABLET PO SCH ×2 (09:03→20:18)
[2019-02-11] MEDS: OSELTAMIVIR PHOSPHATE 75 MG CAP (TAMIFLU) PO SCH ×2 (09:03→20:18)
[2019-02-11] MEDS: CARVedilol 6.25 MG TAB PO SCH ×2 (09:03→20:18)
[2019-02-11] MEDS: FUROSEMIDE 100 MG/10 ML VIAL (J1940) IV SCH ×2 (09:05→20:19)
[2019-02-11] MEDS: NYSTATIN OINTMENT 15 GM TOP SCH ×2 (09:06→20:17)
[2019-02-11] MEDS: EUCERIN 120GM CREAM TOP SCH ×3 (09:06→20:19)
[2019-02-11 12:00] VITALS: BP 122/62
[2019-02-11 16:00] VITALS: BP 119/73
[2019-02-11] MEDS: OMEPRAZOLE 20 MG CAP PO SCH (18:12)
--- NOTE | 2019-02-11 18:52 | IPNPDOC ---
Text Note Date of Service The patient was seen on 02/11/19. NOTE Improved respiration. On NC, speaks in full sentences. denied chest pain. reported cough. PHYSICAL EXAMINATION: GENERAL: Patient morbidly obese. Alert. speaks in full sentences HEENT: Normocephalic, atraumatic. PULMONARY: Diminished breath sounds bilateral. Mild wheeze b/l CARDIAC: Regular, S1, S2. ABDOMEN: Soft, nontender, positive bowel sounds. Patient with bilateral groin erythema and skin breakdown. EXTREMITIES: 1+ edema with bilateral onychomycosis improved. ASSESSMENT AND PLAN: 58-year-old patient with underlying medical history of morbid obesity, poorly compliant, history of diastolic congestive heart failure, COPD, obstructive sleep apnea, on CPAP at home on a pressure of 13 cm of water, coronary arterial disease, hypertension, dyslipidemia, legally blind presented with shortness of breath, increased somnolence, cough for the last week found to be in acute hypercarbic respiratory failure. Patient on 2 liters oxygen at home. PROBLEMS: 1. Acute hypercarbic respiratory failure secondary to influenza A with obesity hypoventilation syndrome. Continue DuoNeb, Symbicort, Spiriva, Tamiflu, nebulizer treatment. ABGs appreciated. off steroid. Bipap 13/11 by pulmonary repeat abg further rec per pulmonary. 2. Acute congestive heart failure (CHF) exacerbation with diastolic dysfunction. Will get echocardiogram. Serial cardiac enzymes appreciated. Diuresis with Lasix. Continue beta blockers. Treatment with BIPAP, d/c jorgensen voiding trial 3. Morbid obesity complicating care. 4. Hypertension. Continue Lasix, Coreg. Holding LI. 5. Dyslipidemia. Continue statin. 6. GERD. Continue PPI. 7. Coronary arterial disease. Continue aspirin, statin, beta brian, lasix. Holding LI. 8. Deep venous thrombosis (DVT) prophylaxis. Heparin subcutaneous. 9. Onychomycosis. Will need followup with podiatry. Supportive care and hygiene as per nursing staff. improved 10. Candidiasis. Nystatin prescribed. 11. Obstructive sleep apnea. Continue current management as mentioned above. BIPAP as per pulmonary, as per pulmonary resume home CPAP upon DC for outpatient repeat sleep study DISPOSITION: Pending clinical improvement. PT , transfer to [facility]. VS,Bryan, I+O VS, Rodriguebone, I+O Laboratory Tests 02/11/19 04:42 Red Blood Count 4.64, Mean Corpuscular Volume 99.4 H, Mean Corpuscular Hemoglobin 31.3, Mean Corpuscular Hemoglobin Concent 31.5 L, Red Cell Distribution Width 12.6, Calcium Level 8.4 L, Aspartate Amino Transf (AST/SGOT) 28, Alanine Aminotransferase (ALT/SGPT) 80 H, Alkaline Phosphatase 57, Total Bilirubin 1.0 #, Total Protein 6.5, Albumin 2.9 L Vital Signs Date Time Temp Pulse Resp B/P (MAP) Pulse Ox O2 Delivery O2 Flow Rate FiO2 02/11/19 16:00 97.8 66 119/73 (88) 91 2.0 02/11/19 12:00 18 02/09/19 08:00 40 02/08/19 00:27 BIPAP/CPAP I&O- Last 24 Hours up to 6 AM 02/11/19 06:00 Intake Total 1335 ml Output Total 3150 ml Balance -1815 ml MATTIE FOX MD Feb 11, 2019 18:52
[2019-02-11 20:00] VITALS: BP 127/71
[2019-02-11] MEDS: NYSTATIN 100,000 UNITS/GM TOPICAL PWD 15 GM TOP PRN (20:17)
[2019-02-12 04:00] VITALS: BP 110/59
[2019-02-12 04:56] LABS: HEMATOCRIT 46.2 % (42.0-52.0); HEMOGLOBIN 14.8 g/dl (13.5-17.5); MEAN CORPUSCULAR HEMOGLOBIN 31.3 pg (27.0-33.0); MEAN CORPUSCULAR VOLUME 97.7 fl (80.0-96.0); PLATELET COUNT, AUTOMATED 253 10^3/uL (150-450); RED BLOOD COUNT 4.73 10^6/uL (4.30-6.10); WHITE BLOOD COUNT 8.5 10^3/uL (4.0-10.0)
[2019-02-12 05:20] LABS: ALBUMIN 3.1 GM/DL (3.2-5.2); ALT/SGPT 95 U/L (12-78); BILIRUBIN,TOTAL 1.5 MG/DL (0.2-1.0); BLOOD UREA NITROGEN 27 MG/DL (7-18); CALCIUM LEVEL 8.2 MG/DL (8.8-10.2); CARBON DIOXIDE LEVEL 38 MEQ/L (21-32); CHLORIDE LEVEL 94 MEQ/L (98-107); CREATININE FOR GFR 0.94 MG/DL (0.70-1.30); GLOMERULAR FILTRATION RATE > 60.0 (>49); GLUCOSE, FASTING 95 MG/DL (70-100); MAGNESIUM LEVEL 2.6 MG/DL (1.8-2.4); POTASSIUM SERUM 3.6 MEQ/L (3.5-5.1); SODIUM LEVEL 137 MEQ/L (136-145); TOTAL PROTEIN 6.7 GM/DL (6.4-8.2)
[2019-02-12] MEDS: HEPARIN SOD (PORCINE) 5000 UNITS/ML VIAL SC SCH ×3 (05:57→21:01)
[2019-02-12] MEDS: AZITHROMYCIN INJ 500 MG, VIAL MATE ADAPTER 1 EACH in D5W 250 ML IV SCH (05:57)
[2019-02-12 08:00] VITALS: BP 122/57
[2019-02-12] MEDS: IPRATROPIUM 0.5MG/ALBUTEROL 2.5MG INH SOL UD 3ML (DUONEB)(J7620) NEB SCH ×5 (08:00→20:00)
[2019-02-12] MEDS: ASPIRIN 81 MG CHEW TABLET PO SCH (09:55)
[2019-02-12] MEDS: CARVedilol 6.25 MG TAB PO SCH ×2 (09:57→20:58)
[2019-02-12] MEDS: POTASSIUM CHLORIDE 10 MEQ SR TABLET PO SCH ×2 (09:58→20:58)
[2019-02-12] MEDS: FUROSEMIDE 100 MG/10 ML VIAL (J1940) IV SCH ×2 (09:59→20:57)
[2019-02-12] MEDS: EUCERIN 120GM CREAM TOP SCH ×3 (10:00→20:56)
[2019-02-12] MEDS: NYSTATIN OINTMENT 15 GM TOP SCH ×2 (10:00→20:58)
[2019-02-12] MEDS: NYSTATIN 100,000 UNITS/GM TOPICAL PWD 15 GM TOP PRN ×2 (10:01→20:56)
[2019-02-12] MEDS: SYMBICORT 160/4.5MCG INHALER 6GM INH SCH (10:15)
[2019-02-12] MEDS: TIOTROPIUM INHALER/CAPSULE (SPIRIVA) INH SCH (10:15)
[2019-02-12] MEDS ORDERED: POTASSIUM CHLORIDE 10 MEQ SR TABLET PO ONE (11:30)
[2019-02-12 12:00] VITALS: BP 122/73
[2019-02-12 16:50] VITALS: BP 138/85
[2019-02-12] MEDS: OMEPRAZOLE 20 MG CAP PO SCH (18:17)
--- NOTE | 2019-02-12 18:59 | IPNPDOC ---
Text Note Date of Service The patient was seen on 02/12/19. NOTE Improved respiration. On NC, speaks in full sentences. denied chest pain. able to ambulate with PI PHYSICAL EXAMINATION: GENERAL: Patient morbidly obese. Alert. speaks in full sentences HEENT: Normocephalic, atraumatic. PULMONARY: Diminished breath sounds bilateral. minimum wheeze b/l CARDIAC: Regular, S1, S2. ABDOMEN: Soft, nontender, positive bowel sounds. Patient with bilateral groin erythema and skin breakdown. EXTREMITIES: 1+ edema with bilateral onychomycosis improved. ASSESSMENT AND PLAN: 58-year-old patient with underlying medical history of morbid obesity, poorly compliant, history of diastolic congestive heart failure, COPD, obstructive sleep apnea, on CPAP at home on a pressure of 13 cm of water, coronary arterial disease, hypertension, dyslipidemia, legally blind presented with shortness of breath, increased somnolence, cough for the last week found to be in acute hypercarbic respiratory failure. Patient on 2 liters oxygen at home. PROBLEMS: 1. Acute hypercarbic respiratory failure secondary to influenza A with obesity hypoventilation syndrome. Continue DuoNeb, Symbicort, Spiriva, Tamiflu, nebulizer treatment. ABGs appreciated. off steroid. Bipap 13/11 by pulmonary further rec per pulmonary. 2. Acute congestive heart failure (CHF) exacerbation with diastolic dysfunction. echocardiogram appreciated. Serial cardiac enzymes appreciated. Diuresis with Lasix. Continue beta blockers. Treatment with BIPAP, d/c jorgensen 3. Morbid obesity complicating care. 4. Hypertension. Continue Lasix, Coreg. ACEi. 5. Dyslipidemia. Continue statin. 6. GERD. Continue PPI. 7. Coronary arterial disease. Continue aspirin, statin, beta brian, lasix. ACEi. 8. Deep venous thrombosis (DVT) prophylaxis. Heparin subcutaneous. 9. Onychomycosis. Will need followup with podiatry. Supportive care and hygiene as per nursing staff. improved 10. Candidiasis. Nystatin prescribed. 11. Obstructive sleep apnea. Continue current management as mentioned above. BIPAP as per pulmonary, as per pulmonary resume home CPAP upon DC for outpatient repeat sleep study DISPOSITION: Pending clinical improvement. PT VS,Fishbone, I+O VS, Fishbone, I+O Laboratory Tests 02/12/19 04:16 Red Blood Count 4.73, Mean Corpuscular Volume 97.7 H, Mean Corpuscular Hemoglobin 31.3, Mean Corpuscular Hemoglobin Concent 32.0, Red Cell Distribution Width 12.8, Calcium Level 8.2 L, Aspartate Amino Transf (AST/SGOT) 34, Alanine Aminotransferase (ALT/SGPT) 95 H, Alkaline Phosphatase 60, Total Bilirubin 1.5 H, Total Protein 6.7, Albumin 3.1 L Vital Signs Date Time Temp Pulse Resp B/P (MAP) Pulse Ox O2 Delivery O2 Flow Rate FiO2 02/12/19 16:50 97.1 72 18 138/85 (102) 92 2.0 02/12/19 06:00 Nasal Cannula 02/09/19 08:00 40 I&O- Last 24 Hours up to 6 AM 02/12/19 05:59 Intake Total 1435 ml Output Total 2855 ml Balance -1420 ml MATTIE FOX MD Feb 12, 2019 18:59
[2019-02-12] MEDS: RAMIPRIL 5 MG CAP PO SCH (20:57)
[2019-02-12 22:00] VITALS: BP 146/68
[2019-02-13] MEDS: HEPARIN SOD (PORCINE) 5000 UNITS/ML VIAL SC SCH ×3 (05:23→21:28)
[2019-02-13] MEDS: AZITHROMYCIN INJ 500 MG, VIAL MATE ADAPTER 1 EACH in D5W 250 ML IV SCH (05:24)
[2019-02-13 06:00] VITALS: BP 116/63
[2019-02-13 06:10] LABS: HEMATOCRIT 45.9 % (42.0-52.0); HEMOGLOBIN 14.5 g/dl (13.5-17.5); MEAN CORPUSCULAR HEMOGLOBIN 31.2 pg (27.0-33.0); MEAN CORPUSCULAR HGB CONC 31.6 g/dl (32.0-36.5); MEAN CORPUSCULAR VOLUME 98.7 fl (80.0-96.0); PLATELET COUNT, AUTOMATED 267 10^3/uL (150-450); RED BLOOD COUNT 4.65 10^6/uL (4.30-6.10); WHITE BLOOD COUNT 9.8 10^3/uL (4.0-10.0)
[2019-02-13 06:32] LABS: BLOOD UREA NITROGEN 28 MG/DL (7-18); CALCIUM LEVEL 8.4 MG/DL (8.8-10.2); CARBON DIOXIDE LEVEL 38 MEQ/L (21-32); CHLORIDE LEVEL 97 MEQ/L (98-107); CREATININE FOR GFR 1.04 MG/DL (0.70-1.30); GLOMERULAR FILTRATION RATE > 60.0 (>49); GLUCOSE, FASTING 110 MG/DL (70-100); MAGNESIUM LEVEL 2.3 MG/DL (1.8-2.4); SODIUM LEVEL 138 MEQ/L (136-145)
[2019-02-13] MEDS: IPRATROPIUM 0.5MG/ALBUTEROL 2.5MG INH SOL UD 3ML (DUONEB)(J7620) NEB SCH ×4 (08:00→19:37)
[2019-02-13] MEDS: TIOTROPIUM INHALER/CAPSULE (SPIRIVA) INH SCH (08:39)
[2019-02-13] MEDS: SYMBICORT 160/4.5MCG INHALER 6GM INH SCH ×2 (08:40→19:37)
[2019-02-13] MEDS ORDERED: FUROSEMIDE 40 MG TAB PO SCH (09:00)
[2019-02-13] MEDS: CARVedilol 6.25 MG TAB PO SCH ×2 (11:05→21:30)
[2019-02-13] MEDS: POTASSIUM CHLORIDE 10 MEQ SR TABLET PO SCH ×2 (11:06→21:30)
[2019-02-13] MEDS: ASPIRIN 81 MG CHEW TABLET PO SCH (11:06)
[2019-02-13] MEDS: FUROSEMIDE 40 MG TAB PO SCH ×2 (11:09→17:48)
[2019-02-13] MEDS: NYSTATIN 100,000 UNITS/GM TOPICAL PWD 15 GM TOP PRN ×2 (11:09→21:29)
[2019-02-13] MEDS: NYSTATIN OINTMENT 15 GM TOP SCH ×2 (11:09→21:28)
[2019-02-13] MEDS: EUCERIN 120GM CREAM TOP SCH ×3 (13:01→21:29)
[2019-02-13 14:00] VITALS: BP 114/57
[2019-02-13] MEDS: OMEPRAZOLE 20 MG CAP PO SCH (17:48)
--- NOTE | 2019-02-13 18:56 | IPN ---
DATE: 02/13/2019 Patient seen and examined. In no acute distress. Reported much improved respiration. Denies any chest pain, pressure, or discomfort, fevers, or chills. VITAL SIGNS: Temperature 98.4, pulse 67, respirations 18, blood pressure 114/57, pulse oximetry 90% on 2 liters nasal cannula. LABORATORY DATA: WBC 9.8, hemoglobin and hematocrit 14.5/45.9, platelets 267. Chemistry: Sodium 138, potassium 4, chloride 97, bicarbonate 38, BUN 28, creatinine 1.04. PHYSICAL EXAMINATION: GENERAL: Patient morbidly obese in no acute distress. Speaks in full sentences. HEENT: Normocephalic, atraumatic. PULMONARY: Diminished breath sounds bilateral. No significant wheeze. CARDIAC: Regular, S1, S2. ABDOMEN: Soft, nontender. Positive bowel sounds. EXTREMITIES: Trace edema, bilateral lower extremities. Onychomycosis, improved. ASSESSMENT AND PLAN: This is a 58-year-old male patient with underlying medical history of morbid obesity, poorly compliant, history of diastolic congestive heart failure, chronic obstructive pulmonary disease (COPD), obstructive sleep apnea, on continuous positive airway pressure (CPAP) at home, on pressure of 13 cm of water, coronary artery disease, hypertension, dyslipidemia, legally blind, presented with shortness of breath, increased somnolence, cough for the last week, found to be in acute hypercarbic respiratory failure. At home patient was on 2 liters oxygen. 1. Acute hypercarbic respiratory failure secondary to influenza A with obesity hypoventilation syndrome. Nebulizer treatments, Symbicort, Spiriva. Completed Tamiflu, nebulizer treatments. Arterial blood gas (ABG) appreciated. Off of steroids. Bilevel positive airway pressure (BiPAP) 18/12 as per pulmonology. Patient's home mask has been ripped. Will need respiratory for supply and will need to followup with pulmonology upon discharge for further titration studies. Okay to be discharged on home BiPAP given the mask is replaced. 2. Acute congestive heart failure (CHF) exacerbation with diastolic dysfunction. Echocardiogram appreciated. Serial cardiac enzymes appreciated. Diuresis with Lasix. Continue beta blockers. Treatment with BiPAP. Baeza has been discontinued. Currently on oral diuretics. Initially observed on telemetry. Currently off telemetry. 3. Morbid obesity, complicating care. 4. Hypertension. Lasix, Coreg, Angiotensin-converting enzyme (LI) inhibitor. 5. Dyslipidemia. Continue statin. 6. Gastroesophageal reflux disease (GERD). Continue proton pump inhibitor (PPI). 7. History of coronary artery disease. Continue aspirin, statin, beta brian, Lasix, and LI inhibitor. 8. Onychomycosis. Will need followup with podiatry. Supportive care per nursing. 9. Candidiasis. Nystatin powder. 10. Obstructive sleep apnea. Continue current management. Patient currently on BiPAP. Setting above as per biology teacher. At home patient is on CPAP as per biology teacher. As per biology teacher, patient can be discharged on home CPAP given that new mask is available to the patient. Need outpatient sleep studies. 11. Deep vein thrombosis (DVT) prophylaxis. Heparin subcutaneous. DISPOSITION: Pending physical therapy (PT). Will monitor the patient closely.
[2019-02-13] MEDS: RAMIPRIL 5 MG CAP PO SCH (21:29)
[2019-02-13 22:00] VITALS: BP 115/76
[2019-02-14] MEDS: HEPARIN SOD (PORCINE) 5000 UNITS/ML VIAL SC SCH (05:19)
[2019-02-14 05:58] LABS: HEMOGLOBIN 14.2 g/dl (13.5-17.5); MEAN CORPUSCULAR HEMOGLOBIN 31.1 pg (27.0-33.0); MEAN CORPUSCULAR HGB CONC 31.6 g/dl (32.0-36.5); MEAN CORPUSCULAR VOLUME 98.7 fl (80.0-96.0); PLATELET COUNT, AUTOMATED 252 10^3/uL (150-450); RED BLOOD COUNT 4.56 10^6/uL (4.30-6.10); WHITE BLOOD COUNT 8.1 10^3/uL (4.0-10.0)
[2019-02-14 06:00] VITALS: BP 122/67
[2019-02-14 06:21] LABS: BLOOD UREA NITROGEN 25 MG/DL (7-18); CALCIUM LEVEL 8.6 MG/DL (8.8-10.2); CARBON DIOXIDE LEVEL 36 MEQ/L (21-32); CHLORIDE LEVEL 97 MEQ/L (98-107); CREATININE FOR GFR 1.01 MG/DL (0.70-1.30); GLOMERULAR FILTRATION RATE > 60.0 (>49); GLUCOSE, FASTING 100 MG/DL (70-100); MAGNESIUM LEVEL 2.4 MG/DL (1.8-2.4); POTASSIUM SERUM 4.1 MEQ/L (3.5-5.1); SODIUM LEVEL 137 MEQ/L (136-145)
[2019-02-14] MEDS: ASPIRIN 81 MG CHEW TABLET PO SCH (07:56)
[2019-02-14] MEDS: POTASSIUM CHLORIDE 10 MEQ SR TABLET PO SCH (07:56)
[2019-02-14] MEDS: FUROSEMIDE 40 MG TAB PO SCH (07:56)
[2019-02-14 07:57] VITALS: BP 122/67
[2019-02-14] MEDS: CARVedilol 6.25 MG TAB PO SCH (07:57)
[2019-02-14] MEDS: EUCERIN 120GM CREAM TOP SCH (07:58)
[2019-02-14] MEDS: NYSTATIN 100,000 UNITS/GM TOPICAL PWD 15 GM TOP PRN (07:58)
[2019-02-14] MEDS: IPRATROPIUM 0.5MG/ALBUTEROL 2.5MG INH SOL UD 3ML (DUONEB)(J7620) NEB SCH ×2 (08:00→12:00)
[2019-02-14] MEDS: TIOTROPIUM INHALER/CAPSULE (SPIRIVA) INH SCH (08:01)
[2019-02-14] MEDS: SYMBICORT 160/4.5MCG INHALER 6GM INH SCH (08:01)
[2019-02-14] MEDS ORDERED: FURO40TA2 PO (12:26)
[2019-02-14] MEDS ORDERED: EUCE12CR TOP (12:26)
== END 2019-02-14 14:01 | disposition home health service (06) | DRG 193 ==
LOC: M ED 23:44 → M ED INP 02-07 03:07 → M ICU 02-07 04:00 → M MSPAV 02-12 16:45
PROVIDERS: ADMIT Internal Medicine; ATTEND Hospitalist
DX: J10.1 Influenza due to other identified influenza virus with other respiratory manifestations (principal); J96.02 Acute respiratory failure with hypercapnia; I50.33 Acute on chronic diastolic (congestive) heart failure; J44.1 Chronic obstructive pulmonary disease with (acute) exacerbation; Z68.43 Body mass index [BMI] 50.0-59.9, adult; E66.01 Morbid (severe) obesity due to excess calories; Z79.82 Long term (current) use of aspirin; Z79.899 Other long term (current) drug therapy; Z87.891 Personal history of nicotine dependence; I11.0 Hypertensive heart disease with heart failure; E78.5 Hyperlipidemia, unspecified; K21.9 Gastro-esophageal reflux disease without esophagitis; I25.10 Atherosclerotic heart disease of native coronary artery without angina pectoris; I25.2 Old myocardial infarction; F31.9 Bipolar disorder, unspecified; G47.33 Obstructive sleep apnea (adult) (pediatric); B37.2 Candidiasis of skin and nail; B35.1 Tinea unguium

== ENCOUNTER → 2019-04-26 | Outpatient (CLI) | payer MEDICARE ==
[~2019-04-26] MED LIST changes: +ALTA1CAP3 PO; -ASPI1TAB PO; +ASPI81CH49 PO; +ASPI81TA26 PO; +CARV12.5 PO; +CYCL10TA PO; +FURO40TA2 PO; +HYDR1CRE95 TOP; +K-TA10TA2 PO; +LASI40TA9 PO; +MUCUTAB PO; +POTA10TA17 PO; +PROAAER10 INH; +RAMI1CAP24 PO
--- NOTE | 2019-04-26 10:10 | REP ---
CT chest without contrast: History: Nicotine dependence. Low-dose screening chest CT. No comparison CT study. Comparison radiograph is from February 06, 2019. 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 Lung window settings show a granulomatous calcification in the right lower lobe on page 67. There is linear fibrosis in the lingula at the left base. There is a 3 mm nodular density in the right upper lobe on page 28. This is not definitely calcified. There is a granulomatous calcification in the left upper lobe peripherally on page 39. No other pulmonary nodule is appreciated. Impression: Lung RADS category II benign findings. Repeat screening exam suggested 1 year. Electronically Signed by Nash Siegel MD 04/26/2019 10:02 A
== END ==
LOC: M RAD 08:33
PROVIDERS: ATTEND Internal Medicine Pulmonary Disease
DX: Z12.2 Encounter for screening for malignant neoplasm of respiratory organs (principal); F17.218 Nicotine dependence, cigarettes, with other nicotine-induced disorders; J84.10 Pulmonary fibrosis, unspecified

== ENCOUNTER → 2019-04-30 | Outpatient (CLI) | payer MEDICARE ==
--- NOTE | 2019-05-02 16:46 | SLEEPHOME ---
DATE OF PROCEDURE: 04/30/2019 ORDERED BY: Dr. Graham Diagnostic home sleep testing was performed due to concern for the obstructive sleep apnea syndrome. For testing a nocturnal T3 respiratory monitoring device was used. Continuous record was made of pulse, oxygen saturation, airflow, chest, abdominal strain and body position. 9 hours and 59 minutes of data were reviewed. There were 5 hours and 41 minutes marked as time in bed. During the interval marked time in bed, there were 92 respiratory events identified of 10 seconds in duration or greater for a respiratory event index of 16.2. The events were primarily obstructive. Baseline pulse rate 73, pulse rate ranged 24-93. Baseline saturation 85%. Saturations fell to 70%. Testing was performed in both the supine and nonsupine positions. IMPRESSION: Abnormal home sleep testing with repetitive respiratory events and oxygen desaturations to 70% with a respiratory event index of 16.2 is consistent with the obstructive sleep apnea syndrome. RECOMMENDATIONS: The patient should be referred for a formal sleep evaluation and in laboratory pressure titration. The baseline oxygen saturation of 85% suggests possible need for supplemental oxygen at night as well.
== END ==
LOC: M SLEEP HO 10:38
PROVIDERS: ATTEND Internal Medicine Pulmonary Disease
DX: G47.33 Obstructive sleep apnea (adult) (pediatric) (principal)

== ENCOUNTER 2019-07-04 09:17 | Emergency (ER) | payer MEDICARE ==
[~2019-07-04 09:17] MED LIST changes: -OMEP20CA3 PO; +OMEP20CA4 PO
== END 2019-07-04 09:38 | disposition left against medical advice (07) ==
LOC: M ED 09:17 → EDBD 09:17 → M ED 09:38
DX: R07.9 Chest pain, unspecified (principal); I11.0 Hypertensive heart disease with heart failure; I50.9 Heart failure, unspecified; I25.2 Old myocardial infarction; J44.9 Chronic obstructive pulmonary disease, unspecified; E78.5 Hyperlipidemia, unspecified; G47.33 Obstructive sleep apnea (adult) (pediatric); E66.9 Obesity, unspecified; F17.200 Nicotine dependence, unspecified, uncomplicated; Z79.899 Other long term (current) drug therapy; Z79.51 Long term (current) use of inhaled steroids; Z79.82 Long term (current) use of aspirin

== ENCOUNTER 2019-09-08 15:25 | Emergency (ER) | payer MEDICARE ==
[2019-09-08] MEDS ORDERED: ARIP1TAB10 PO (15:44)
[2019-09-08 15:54] LABS: BASO # 0.1 10^3/uL (0.0-0.2); BASO % 0.6 % (0.0-1.0); EOS # 0.2 10^3/uL (0.0-0.5); EOS % 1.7 % (0.0-3.0); HEMATOCRIT 45.2 % (42.0-52.0); HEMOGLOBIN 14.2 g/dl (13.5-17.5); LYMPH # 1.9 10^3/uL (1.5-5.0); LYMPH % 15.7 % (24.0-44.0); MEAN CORPUSCULAR HEMOGLOBIN 31.9 pg (27.0-33.0); MEAN CORPUSCULAR HGB CONC 31.4 g/dl (32.0-36.5); MEAN CORPUSCULAR VOLUME 101.6 fl (80.0-96.0); MONO # 0.7 10^3/uL (0.0-0.8); MONO % 5.7 % (0.0-5.0); NEUTROPHILS # 9.1 10^3/uL (1.5-8.5); NEUTROPHILS % 75.9 % (36.0-66.0); PLATELET COUNT, AUTOMATED 252 10^3/uL (150-450); RED BLOOD COUNT 4.45 10^6/uL (4.30-6.10)
[2019-09-08 16:19] LABS: ALBUMIN 2.9 GM/DL (3.2-5.2); ALT/SGPT 28 U/L (12-78); BILIRUBIN,DIRECT < 0.1 MG/DL (0.0-0.2); BILIRUBIN,TOTAL 0.4 MG/DL (0.2-1.0); BLOOD UREA NITROGEN 14 MG/DL (7-18); CALCIUM LEVEL 8.6 MG/DL (8.8-10.2); CARBON DIOXIDE LEVEL 32 MEQ/L (21-32); CHLORIDE LEVEL 102 MEQ/L (98-107); CK-MB VALUE MASS 1.4 NG/ML (<3.6); CPK CREATINE PHOSPHOKINASE 133 U/L (39-308); CREATININE FOR GFR 0.96 MG/DL (0.70-1.30); GLOMERULAR FILTRATION RATE > 60.0 (>49); GLUCOSE, FASTING 97 MG/DL (70-100); LIPASE 99 U/L (73-393); MB/CK RELATIVE INDEX 1.05 (< OR =4); POTASSIUM SERUM 4.5 MEQ/L (3.5-5.1); SODIUM LEVEL 137 MEQ/L (136-145); TOTAL PROTEIN 7.2 GM/DL (6.4-8.2); TROPONIN I < 0.02 NG/ML (< 0.10)
[2019-09-08 16:45] VITALS: BP 119/56
--- NOTE | 2019-09-08 19:16 | ECGEPIP ---
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
--- NOTE | 2019-09-09 07:30 | REP ---
REASON: Chest pain. COMPARISON: Multiple There is basilar fibrotic change status quo. There is cardiomegaly accentuated by technique status quo. Two minimal discoid opacities are seen in the left lower lobe, status quo. The technique utilized in obtaining the radiograph has magnified the cardiac silhouette and accentuated the interstitial markings. IMPRESSION: Cardiomegaly with no evidence of acute cardiopulmonary disease. Minimal discoid subsegmental atelectatic change, left lower lobe. Electronically Signed by Washington Lagunas DO 09/09/2019 12:46 P
== END 2019-09-08 17:12 | disposition left against medical advice (07) ==
LOC: EDBD 15:25 → M ED 15:25
DX: R07.9 Chest pain, unspecified (principal); I25.10 Atherosclerotic heart disease of native coronary artery without angina pectoris; I10 Essential (primary) hypertension; E78.5 Hyperlipidemia, unspecified; F31.9 Bipolar disorder, unspecified; K21.9 Gastro-esophageal reflux disease without esophagitis; R56.9 Unspecified convulsions; J44.9 Chronic obstructive pulmonary disease, unspecified; G47.30 Sleep apnea, unspecified; E66.01 Morbid (severe) obesity due to excess calories; F17.200 Nicotine dependence, unspecified, uncomplicated; Z82.49 Family history of ischemic heart disease and other diseases of the circulatory system; Z79.82 Long term (current) use of aspirin; Z79.899 Other long term (current) drug therapy; Z53.21 Procedure and treatment not carried out due to patient leaving prior to being seen by health care provider

== ENCOUNTER 2020-10-24 21:00 | Emergency (ER) | payer MEDICARE ==
[~2020-10-24] VITALS: Ht 167.6 cm; Wt 161.6 kg
[~2020-10-24 21:00] MED LIST changes: +CYCL-707 PO; -CYCL10TA PO; +OMEP1CAP73 PO; -OMEP20CA4 PO
[2020-10-24] MEDS ORDERED: TRAM50TA2 PO (21:25)
[2020-10-24] MEDS ORDERED: OMEP-218 PO (21:25)
[2020-10-24] MEDS ORDERED: CEPH500C PO (21:25)
[2020-10-24] MEDS ORDERED: GABAPENTIN 300 MG CAP PO ONE (21:45)
[2020-10-24 21:46] LABS: BASO # 0.1 10^3/uL (0.0-0.2); BASO % 0.6 % (0.0-1.0); EOS # 0.3 10^3/uL (0.0-0.5); EOS % 2.4 % (0.0-3.0); HEMATOCRIT 39.8 % (42.0-52.0); LYMPH # 1.4 10^3/uL (1.5-5.0); LYMPH % 12.3 % (24.0-44.0); MEAN CORPUSCULAR HEMOGLOBIN 25.9 pg (27.0-33.0); MEAN CORPUSCULAR HGB CONC 27.6 g/dl (32.0-36.5); MEAN CORPUSCULAR VOLUME 93.9 fl (80.0-96.0); MONO # 0.8 10^3/uL (0.0-0.8); MONO % 6.7 % (0.0-5.0); NEUTROPHILS # 9.1 10^3/uL (1.5-8.5); NEUTROPHILS % 77.7 % (36.0-66.0); PLATELET COUNT, AUTOMATED 306 10^3/uL (150-450); RED BLOOD COUNT 4.24 10^6/uL (4.30-6.10); WHITE BLOOD COUNT 11.7 10^3/uL (4.0-10.0)
[2020-10-24 21:59] LABS: BLOOD UREA NITROGEN 16 MG/DL (7-18); C REACTIVE PROTEIN QUANTITATIV 2.02 MG/DL (0.00-0.30); CALCIUM LEVEL 8.6 MG/DL (8.8-10.2); CARBON DIOXIDE LEVEL 42 MEQ/L (21-32); CHLORIDE LEVEL 98 MEQ/L (98-107); CREATININE FOR GFR 0.92 MG/DL (0.70-1.30); GLOMERULAR FILTRATION RATE > 60.0 (>49); GLUCOSE, FASTING 138 MG/DL (70-100); NT-PRO BNP 90 PG/ML (<125); POTASSIUM SERUM 4.5 MEQ/L (3.5-5.1); SODIUM LEVEL 138 MEQ/L (136-145)
--- NOTE | 2020-10-24 22:27 | REPVR ---
PROCEDURE INFORMATION: Exam: US Duplex Lower Extremity Veins, Bilateral Exam date and time: 10/24/2020 10:13 PM Age: 59 years old Clinical indication: Pain; Leg, upper; Bilateral; Additional info: Pain, swelling TECHNIQUE: Imaging protocol: Real-time duplex ultrasound of the extremities with 2-D crain scale, color Doppler flow and spectral waveform analysis with image documentation. Complete exam focused on the bilateral lower extremity veins. COMPARISON: US Duplex, Ext LOWER veins, bilat 12/15/2017 1:15 PM FINDINGS: Right deep veins: Unremarkable. The common femoral, femoral and popliteal veins are patent without thrombus. Normal Doppler waveforms. Normal compressibility and/or augmentation response. Right superficial veins: Saphenofemoral junction is patent without thrombus. Left deep veins: Unremarkable. The common femoral, femoral and popliteal veins are patent without thrombus. Normal Doppler waveforms. Normal compressibility and/or augmentation response. Left superficial veins: Saphenofemoral junction is patent without thrombus. Soft tissues: Unremarkable. IMPRESSION: No sonographic evidence of deep vein thrombosis. Electronically signed by: Bienvenido Del Angel On 10/24/2020 22:27:35 PM
[2020-10-24] MEDS ORDERED: NEUR300C PO (22:56)
[2020-10-24 23:01] VITALS: BP 154/70
== END 2020-10-25 00:21 | disposition home or self-care (01) ==
LOC: M ED 21:00
DX: L03.116 Cellulitis of left lower limb (principal); L03.115 Cellulitis of right lower limb; M79.605 Pain in left leg; M79.604 Pain in right leg; I10 Essential (primary) hypertension; F17.218 Nicotine dependence, cigarettes, with other nicotine-induced disorders; J44.9 Chronic obstructive pulmonary disease, unspecified; I25.10 Atherosclerotic heart disease of native coronary artery without angina pectoris; G47.33 Obstructive sleep apnea (adult) (pediatric); E78.00 Pure hypercholesterolemia, unspecified; Z79.01 Long term (current) use of anticoagulants; E66.01 Morbid (severe) obesity due to excess calories

== ENCOUNTER 2020-12-01 12:56 | Emergency (ER) | payer MEDICARE ==
[~2020-12-01 12:56] MED LIST changes: +CEPH500C PO; +NEUR300C PO; +OMEP-218 PO; +TRAM50TA2 PO
[2020-12-01 13:02] VITALS: BP 157/82
[2020-12-01] MEDS ORDERED: NS 1,000 ML IV ONE (14:00)
[2020-12-01] MEDS ORDERED: methylPREDNISolone 125MG 2ML VIAL IV ONE (14:00)
[2020-12-01] MEDS ORDERED: diphenhydrAMINE 50MG/ML VIAL (J1200) IV ONE (14:00)
== END 2020-12-01 14:43 | disposition left against medical advice (07) ==
LOC: EDBD 12:56 → M ED 12:56
DX: Z53.9 Procedure and treatment not carried out, unspecified reason (principal); R21 Rash and other nonspecific skin eruption; I51.9 Heart disease, unspecified; I10 Essential (primary) hypertension; E11.9 Type 2 diabetes mellitus without complications; Z79.82 Long term (current) use of aspirin; Z79.899 Other long term (current) drug therapy

== ENCOUNTER 2020-12-07 14:16 | Emergency (ER) | payer MEDICARE ==
[~2020-12-07] VITALS: Ht 167.6 cm; Wt 156.8 kg
[2020-12-07] MEDS ORDERED: FAMOTIDINE INJ 20MG/2ML VIAL (S0028 PER 1) IVP ONE (14:45)
[2020-12-07] MEDS ORDERED: methylPREDNISolone 125MG 2ML VIAL IV ONE (14:45)
[2020-12-07 14:59] LABS: BASO # 0.1 10^3/uL (0.0-0.2); BASO % 0.6 % (0.0-1.0); EOS # 0.3 10^3/uL (0.0-0.5); EOS % 2.4 % (0.0-3.0); HEMATOCRIT 39.2 % (42.0-52.0); HEMOGLOBIN 10.6 g/dl (13.5-17.5); LYMPH # 1.4 10^3/uL (1.5-5.0); LYMPH % 12.5 % (24.0-44.0); MEAN CORPUSCULAR HEMOGLOBIN 25.2 pg (27.0-33.0); MEAN CORPUSCULAR VOLUME 93.1 fl (80.0-96.0); MONO # 0.8 10^3/uL (0.0-0.8); MONO % 7.4 % (0.0-5.0); NEUTROPHILS # 8.3 10^3/uL (1.5-8.5); NEUTROPHILS % 76.6 % (36.0-66.0); PLATELET COUNT, AUTOMATED 301 10^3/uL (150-450); RED BLOOD COUNT 4.21 10^6/uL (4.30-6.10); WHITE BLOOD COUNT 10.9 10^3/uL (4.0-10.0)
[2020-12-07 15:25] LABS: ERYTHROCYTE SEDIMENTATION RATE 33 mm/hr (0-20)
[2020-12-07 15:27] LABS: ALBUMIN 2.3 GM/DL (3.2-5.2); ALT/SGPT 15 U/L (12-78); BILIRUBIN,TOTAL 0.4 MG/DL (0.2-1.0); BLOOD UREA NITROGEN 14 MG/DL (7-18); CARBON DIOXIDE LEVEL 38 MEQ/L (21-32); CHLORIDE LEVEL 96 MEQ/L (98-107); CREATININE FOR GFR 0.96 MG/DL (0.70-1.30); GLOMERULAR FILTRATION RATE > 60.0 (>49); GLUCOSE, FASTING 93 MG/DL (70-100); POTASSIUM SERUM 4.1 MEQ/L (3.5-5.1); SODIUM LEVEL 135 MEQ/L (136-145); TOTAL PROTEIN 6.8 GM/DL (6.4-8.2)
--- OUTSIDE RECORDS SUMMARY | 2020-12-07 15:27 | CCD ---
Author Author [facility] Organization [facility] Address Unknown Phone Unavailable Care Team Providers Care Bobtail Driver Name Role Phone Bettie Santoyo MD Unavailable Unavailable Bettie Santoyo MD Unavailable Unavailable Bettie Santoyo MD Unavailable Unavailable Bettie Santoyo MD Unavailable Unavailable Bettie Santoyo MD Unavailable Unavailable Bettie Santoyo MD Unavailable Unavailable Bettie Santoyo MD Unavailable Unavailable Bettie Santoyo MD Unavailable Unavailable Bettie Santoyo MD Unavailable Unavailable Bettie Santoyo MD Unavailable Unavailable Bettie Santoyo MD Unavailable Unavailable Reyna CONTRERAS Unavailable Unavailable DOROTA ., DEMETRIS . Unavailable Unavailable DOROTA ., DEMETRIS . Unavailable Unavailable DOROTA ., DEMETRIS . Unavailable Unavailable Ivett La LOAN SERVICES PROFESSIONAL Unavailable Unavailable Edgar FARRELL MD Unavailable Unavailable Edgar FARRELL MD Unavailable Unavailable Edgar FARRELL MD Unavailable Unavailable Edgar FARRELL MD Unavailable Unavailable Edgar FARRELL MD Unavailable Unavailable Edagr FARRELL MD Unavailable Unavailable JAMI, K DIANE NORMAN Unavailable Unavailable JAMI, K DIANE MD Unavailable Unavailable JAMI, K DIANE MD Unavailable Unavailable JAMI, K DIANE MD Unavailable Unavailable JAMI, K DIANE MD Unavailable Unavailable JAMI, K DIANE MD Unavailable Unavailable JAMI, K DIANE MD Unavailable Unavailable JAMI, K DIANE MD Unavailable Unavailable Re-disclosure Warning The records that you are about to access may contain information from federally-assisted alcohol or drug abuse programs. If such information is present, then the following federally mandated warning applies: This information has been disclosed to you from records protected by federal confidentiality rules (42 CFR part 2). The federal rules prohibit you from making any further disclosure of this information unless further disclosure is expressly permitted by the written consent of the person to whom it pertains or as otherwise permitted by 42 CFR part 2. A general authorization for the release of medical or other information is NOT sufficient for this purpose. The Federal rules restrict any use of the information to criminally investigate or prosecute any alcohol or drug abuse patient.The records that you are about to access may contain highly sensitive health information, the redisclosure of which is protected by Article 27-F of the [facility] Public Health law. If you continue you may have access to information: Regarding HIV / AIDS; Provided by facilities licensed or operated by the [facility] Office of Mental Health; or Provided by the [facility] Office for People With Developmental Disabilities. If such information is present, then the following [facility] mandated warning applies: This information has been disclosed to you from confidential records which are protected by state law. State law prohibits you from making any further disclosure of this information without the specific written consent of the person to whom it pertains, or as otherwise permitted by law. Any unauthorized further disclosure in violation of state law may result in a fine or custodial sentence or both. A general authorization for the release of medical or other information is NOT sufficient authorization for further disc losure. Encounters Encounter Providers Location Date Indications Data Source(s ) Inpatient Attender: Alma Coon r: DEMETRIS RAYA .Attender: DIANE FARRELL MDAdmitter: Alma Santoyo MDReferrer: CHELSEA CONTRERAS [id number] 12:00:00 AM EDT - 06/27/2020 04:26:00 PM EDT Shortness of breath [facility] Shortness of breath Patient discharged. Outpatient Attender: MORRIS CLEVELAND 03/06/2020 08:01:21 P M EDT [facility] Medications Medication Brand Name Start Date Product Form Dose Route Admi nistrative Instructions Pharmacy Instructions Status Indications Reaction Description Data Source(s) 50 mg 12/03/2020 12:00:00 AM EST tablet 120 TAKE ONE TABLET BY MOUTH EVERY 6 HOURS NEEDED MAXIMUM DAILY DOSE = FOUR TABLETS TAKE ONE TABLET BY MOUTH EVERY 6 HOURS NEEDED MAXIMUM DAILY DOSE = FOUR TABLETS SOLD: 12/05/2020 [facility] 300 mg 11/25/2020 12:00:00 AM EST capsule 180 TAKE ONE CAPSULE BY MOUTH THREE TIMES A DAY TAKE ONE CAPSULE BY MOUTH THREE TIMES A DAY SOLD: 11/25/2020 [facility] 40 mg 11/12/2020 12:00:00 AM EST tablet 270 TAKE ONE AND ONE-HALF TABLETS BY MOUTH TWICE A DAY TAKE ONE AND ONE-HALF TABLETS BY MOUTH TWICE A DAY SONIA [facility] 300 mg 10/25/2020 12:00:00 AM EST capsule 90 TAKE ONE CAPSULE BY MOUTH THREE TIMES A DAY TAKE ONE CAPSULE BY MOUTH THREE TIMES A DAY SOLD: 10/25/2020 [facility] 50 mg 10/16/2020 12:00:00 AM EST tablet 120 TAKE ONE TABLET BY MOUTH EVERY 6 HOURS NEEDED MAXIMUM DAILY DOSE = 4 TABLETS TAKE ONE TABLET BY MOUTH EVERY 6 HOURS NEEDED MAXIMUM DAILY DOSE = 4 TABLETS SOLD: 10/16/2020 [facility] Cephalexin 500 MG Oral Capsule CEPHALEXIN 10/16/2020 12:00:00 AM EST capsule 40 TAKE ONE CAPSULE BY MOUTH FOUR TIMES A DAY FOR 10 DAYS TAKE ONE CAPSULE BY MOUTH FOUR TIMES A DAY FOR 10 DAYS SOLD: 10/16/2020 [facility] 50 mg 09/16/2020 12:00:00 AM EDT tablet 120 TAKE ONE TABLET BY MOUTH EVERY 6 HOURS NEEDED MAXIMUM DAILY DOSE = 4 TAKE ONE TABLET BY MOUTH EVERY 6 HOURS A S NEEDED MAXIMUM DAILY DOSE = 4 SOLD: 09/16/2020 [facility] Cyclobenzaprine hydrochloride 10 MG Oral Tablet CYCLOBENZAPR INE HCL 09/11/2020 12:00:00 AM EDT tablet 90 TAKE ONE TABLET BY MOUTH AT BEDTIME TAKE ONE TABLET BY MOUTH AT BEDTIME SOLD: 09/11/2020 [facility] atorvastatin 40 MG Oral Tablet ATORVASTATIN CALCIUM 08/31/2020 1 2:00:00 AM EDT tablet 90 TAKE ONE TABLET BY MOUTH EVERY E VENING TAKE ONE TABLET BY MOUTH EVERY EVENING SOLD: 08/31/2020 [facility] Ramipril 5 MG Oral Capsule RAMIPRIL 08/31/2020 12:00:00 AM EDT capsul e 90 TAKE ONE CAPSULE BY MOUTH EVERY DAY TAKE ONE CAPSULE BY MOUTH EVERY DAY SOLD: 11/27/2020 [facility] 5 mg 08/31/2020 12:00:00 AM EDT capsule 90 TAKE ONE CAPSULE BY MOUTH EVERY DAY TAKE ONE CAPSULE BY MOUTH EVERY DAY SOLD: 08/31/2020 [facility] carvedilol 12.5 MG Oral Tablet CARVEDILOL 08/31/2020 12:00:00 AM EDT tablet 180 TAKE ONE TABLET BY MOUTH TWICE A DAY TAKE ONE TABLET BY MOUT H TWICE A DAY SOLD: 11/27/2020 [facility] carvedilol 12.5 MG Oral Tablet CARVEDILOL 08/31/2020 12:00:00 AM EDT tablet 180 TAKE ONE TABLET BY MOUTH TWICE A DAY TAKE ONE TABLET BY MOUT H TWICE A DAY SOLD: 08/31/2020 [facility] atorvastatin 40 MG Oral Tablet ATORVASTATIN CALCIUM 08/31/2020 1 2:00:00 AM EDT tablet 90 TAKE ONE TABLET BY MOUTH EVERY E VENING TAKE ONE TABLET BY MOUTH EVERY EVENING SOLD: 11/27/2020 [facility] Cephalexin 500 MG Oral Capsule CEPHALEXIN 06/27/2020 12:00:00 AM EDT capsule 28 TAKE ONE CAPSULE BY MOUTH FOUR TIMES A DAY FOR 7 DAYS TAKE ONE CAPSULE BY MOUTH FOUR TIMES A DAY FOR 7 DAYS SOLD: 06/27/2020 [facility] 250 mg 06/27/2020 12:00:00 AM EDT tablet 6 TAKE TWO TABLETS BY MOUTH AT ONCE ON THE FIRST DAY THEN TAKE ONE DAILY THEREAFTER TAKE TWO TABLETS BY MOUTH AT ONCE ON THE FIRST DAY THEN TAKE ONE DAILY THEREAFTER SOLD: 06/27/2020 [facility] carvedilol 6.25 MG Oral Tablet CARVEDILOL 06/27/2020 12:00:00 AM EDT tablet 60 TAKE ONE TABLET BY MOUTH TWICE A DAY TAKE ONE TABLET BY MOUT H TWICE A DAY SOLD: 06/27/2020 [facility] atorvastatin 40 MG Oral Tablet ATORVASTATIN CALCIUM 06/27/2020 1 2:00:00 AM EDT tablet 30 TAKE ONE TABLET BY MOUTH EVERY E VENING TAKE ONE TABLET BY MOUTH EVERY EVENING SOLD: 07/23/2020 [facility] 20 mg 06/27/2020 12:00:00 AM EDT tablet 4 TAKE 2 TABLETS ONCE DAILY FOR 2 DAYS TAKE 2 TABLETS ONCE DAILY FOR 2 DAYS SOLD: 06/27/2020 [facility] atorvastatin 40 MG Oral Tablet ATORVASTATIN CALCIUM 06/27/2020 1 2:00:00 AM EDT tablet 30 TAKE ONE TABLET BY MOUTH EVERY E VENING TAKE ONE TABLET BY MOUTH EVERY EVENING SOLD: 06/27/2020 [facility] pantoprazole 40 MG Delayed Release Oral Tablet PANTOPRAZOLE SODIUM 06/27/2020 12:00:00 AM EDT tablet,delayed release (DR/EC) 30 T KIMBERLY ONE TABLET BY MOUTH EVERY DAY TAKE ONE TABLET BY MOUTH EVERY DAY SOLD: 06/27/2020 [facility] carvedilol 6.25 MG Oral Tablet CARVEDILOL 06/27/2020 12:00:00 AM EDT tablet 60 TAKE ONE TABLET BY MOUTH TWICE A DAY TAKE ONE TABLET BY MOUT H TWICE A DAY SOLD: 07/23/2020 [facility] pantoprazole 40 MG Delayed Release Oral Tablet PANTOPRAZOLE SODIUM 06/27/2020 12:00:00 AM EDT tablet,delayed release (DR/EC) 30 T KIMBERLY ONE TABLET BY MOUTH EVERY DAY TAKE ONE TABLET BY MOUTH EVERY DAY SOLD: 07/23/2020 [facility] 90 mcg/actuation 06/10/2020 12:00:00 AM EDT HFA aerosol inha ler 25 INHALE TWO PUFFS BY MOUTH EVERY 4 HOURS NEEDED INHALE TWO PUFFS BY MOUTH EVERY 4 HOURS NEEDED SOLD: 08/25/2020 [facility] Potassium Chloride 10 MEQ Extended Release Oral Tablet POTAS SIUM CHLORIDE 06/10/2020 12:00:00 AM EDT tablet extended release 180 TAKE ONE TABLET BY MOUTH TWICE A DAY TAKE ONE TABLET BY MOUTH TWICE A DAY SOLD: 09/06/2020 [facility] Potassium Chloride 10 MEQ Extended Release Oral Tablet POTAS SIUM CHLORIDE 06/10/2020 12:00:00 AM EDT tablet extended release 180 TAKE ONE TABLET BY MOUTH TWICE A DAY TAKE ONE TABLET BY MOUTH TWICE A DAY SOLD: 11/12/2020 [facility] 90 mcg/actuation 06/10/2020 12:00:00 AM EDT HFA aerosol inha ler 25 INHALE TWO PUFFS BY MOUTH EVERY 4 HOURS NEEDED INHALE TWO PUFFS BY MOUTH EVERY 4 HOURS NEEDED SOLD: 07/19/2020 [facility] Potassium Chloride 10 MEQ Extended Release Oral Tablet POTAS SIUM CHLORIDE 06/10/2020 12:00:00 AM EDT tablet extended release 180 TAKE ONE TABLET BY MOUTH TWICE A DAY TAKE ONE TABLET BY MOUTH TWICE A DAY SOLD: 06/10/2020 [facility] 90 mcg/actuation 06/10/2020 12:00:00 AM EDT HFA aerosol inha ler 25 INHALE TWO PUFFS BY MOUTH EVERY 4 HOURS NEEDED INHALE TWO PUFFS BY MOUTH EVERY 4 HOURS NEEDED SOLD: 06/10/2020 [facility] 90 mcg/actuation 06/10/2020 12:00:00 AM EDT HFA aerosol inha ler 25 INHALE TWO PUFFS BY MOUTH EVERY 4 HOURS NEEDED INHALE TWO PUFFS BY MOUTH EVERY 4 HOURS NEEDED SOLD: 10/02/2020 [facility] 160-4.5 mcg/actuation 05/16/2020 12:00:00 AM EDT HFA aerosol inhaler 30 INHALE TWO PUFFS BY MOUTH TWICE A DAY INHALE TWO PUFFS BY MOUTH TWICE A DAY SOLD: 07/23/2020 [facility] 160-4.5 mcg/actuation 05/16/2020 12:00:00 AM EDT HFA aerosol inhaler 30 INHALE TWO PUFFS BY MOUTH TWICE A DAY INHALE TWO PUFFS BY MOUTH TWICE A DAY SOLD: 05/17/2020 [facility] 90 mcg/actuation 05/06/2020 12:00:00 AM EDT HFA aerosol inha ler 34 INHALE TWO PUFFS BY MOUTH EVERY 4 HOURS NEEDED FOR 90 DAYS INHALE TWO PUFFS BY MOUTH EVERY 4 HOURS NEEDED FOR 90 DAYS SOLD: 06/10/2020 [facility] 20 mg 04/13/2020 12:00:00 AM EDT capsule,delayed release (DR/EC) 90 TAKE ONE CAPSULE BY MOUTH EVERY DAY BEFORE DINNER TAKE ONE CAPSULE BY MOUTH EVERY DAY BEFORE DINNER SOLD: 07/09/2020 [facility] 40 mg 04/13/2020 12:00:00 AM EDT tablet 180 TAKE ONE TABLET BY MOUTH TWICE A DAY TAKE ONE TABLET BY MOUTH TWICE A DAY SOLD: 07/09/2020 [facility] 40 mg 04/13/2020 12:00:00 AM EDT tablet 180 TAKE 1 TABLET BY MOUTH TWO TIMES A DAY FOR 90 DAYS TAKE 1 TABLET BY MOUTH TWO TIMES A DAY FOR 90 DAYS SONIA [facility] 40 mg 04/13/2020 12:00:00 AM EDT tablet 180 TAKE ONE TABLET BY MOUTH TWICE A DAY TAKE ONE TABLET BY MOUTH TWICE A DAY SOLD: 09/28/2020 [facility] 20 mg 04/13/2020 12:00:00 AM EDT capsule,delayed release (DR/EC) 90 TAKE ONE CAPSULE BY MOUTH EVERY DAY BEFORE DINNER TAKE ONE CAPSULE BY MOUTH EVERY DAY BEFORE DINNER SOLD: 04/13/2020 [facility] 40 mg 04/13/2020 12:00:00 AM EDT tablet 180 TAKE ONE TABLET BY MOUTH TWICE A DAY TAKE ONE TABLET BY MOUTH TWICE A DAY SOLD: 04/13/2020 [facility] 20 mg 04/13/2020 12:00:00 AM EDT capsule,delayed release (DR/EC) 90 TAKE ONE CAPSULE BY MOUTH EVERY DAY BEFORE DINNER TAKE ONE CAPSULE BY MOUTH EVERY DAY BEFORE DINNER SOLD: 10/05/2020 [facility] 50 mg 04/06/2020 12:00:00 AM EDT tablet 120 TAKE ONE TABLET BY MOUTH EVERY 6 HOURS NEEDED MAXIMUM DAILY DOSE = FOUR TABLETS TAKE ONE TABLET BY MOUTH EVERY 6 HOURS NEEDED MAXIMUM DAILY DOSE = FOUR TABLETS SOLD: 04/06/2020 [facility] 50 mg 04/06/2020 12:00:00 AM EDT tablet 120 TAKE ONE TABLET BY MOUTH EVERY 6 HOURS NEEDED MAXIMUM DAILY DOSE = FOUR TABLETS TAKE ONE TABLET BY MOUTH EVERY 6 HOURS NEEDED MAXIMUM DAILY DOSE = FOUR TABLETS SOLD: 06/15/2020 [facility] 50 mg 04/06/2020 12:00:00 AM EDT tablet 120 TAKE ONE TABLET BY MOUTH EVERY 6 HOURS NEEDED MAXIMUM DAILY DOSE = FOUR TABLETS TAKE ONE TABLET BY MOUTH EVERY 6 HOURS NEEDED MAXIMUM DAILY DOSE = FOUR TABLETS SOLD: 07/15/2020 [facility] 50 mg 04/06/2020 12:00:00 AM EDT tablet 120 TAKE ONE TABLET BY MOUTH EVERY 6 HOURS NEEDED MAXIMUM DAILY DOSE = FOUR TABLETS TAKE ONE TABLET BY MOUTH EVERY 6 HOURS NEEDED MAXIMUM DAILY DOSE = FOUR TABLETS SOLD: 08/14/2020 [facility] 90 mcg/actuation 03/29/2020 12:00:00 AM EDT HFA aerosol inha ler 34 INHALE TWO PUFFS BY MOUTH EVERY 4 HOURS NEEDED FOR 90 DAYS INHALE TWO PUFFS BY MOUTH EVERY 4 HOURS NEEDED FOR 90 DAYS SOLD: 03/30/2020 [facility] 18 mcg 03/23/2020 12:00:00 AM EDT capsule, w/inhalation d evice 90 INHALE THE CONTENTS OF ONE CAPSULE VIA HANDIHALER BY MOUTH EVERY DAY INHALE THE CONTENTS OF ONE CAPSULE VIA HANDIHALER BY MOUTH EVERY DAY SOLD: 03/23/2020 [facility] 18 mcg 03/23/2020 12:00:00 AM EDT capsule, w/inhalation d evice 90 INHALE THE CONTENTS OF ONE CAPSULE VIA HANDIHALER BY MOUTH EVERY DAY INHALE THE CONTENTS OF ONE CAPSULE VIA HANDIHALER BY MOUTH EVERY DAY SOLD: 06/05/2020 [facility] 18 mcg 03/23/2020 12:00:00 AM EDT capsule, w/inhalation d evice 90 INHALE THE CONTENTS OF ONE CAPSULE VIA HANDIHALER BY MOUTH EVERY DAY INHALE THE CONTENTS OF ONE CAPSULE VIA HANDIHALER BY MOUTH EVERY DAY SOLD: 08/12/2020 [facility] 18 mcg 03/23/2020 12:00:00 AM EDT capsule, w/inhalation d evice 90 INHALE THE CONTENTS OF ONE CAPSULE VIA HANDIHALER BY MOUTH EVERY DAY INHALE THE CONTENTS OF ONE CAPSULE VIA HANDIHALER BY MOUTH EVERY DAY SOLD: 10/19/2020 [facility] 40 mg 03/10/2020 12:00:00 AM EDT tablet 180 TAKE 1 TABLET BY MOUTH TWO TIMES A DAY FOR 90 DAYS TAKE 1 TABLET BY MOUTH TWO TIMES A DAY FOR 90 DAYS SONIA [facility] 90 mcg/actuation 02/17/2020 12:00:00 AM EDT HFA aerosol inha ler 34 INHALE TWO PUFFS BY MOUTH EVERY 4 HOURS NEEDED FOR 90 DAYS INHALE TWO PUFFS BY MOUTH EVERY 4 HOURS NEEDED FOR 90 DAYS SOLD: 02/17/2020 [facility] 40 mg 02/02/2020 12:00:00 AM EST tablet 180 TAKE 1 TABLET BY MOUTH TWO TIMES A DAY FOR 90 DAYS TAKE 1 TABLET BY MOUTH TWO TIMES A DAY FOR 90 DAYS SONIA [facility] 5 mg 01/30/2020 12:00:00 AM EST capsule 90 TAKE ONE CAPSULE BY MOUTH EVERY DAY TAKE ONE CAPSULE BY MOUTH EVERY DAY SOLD: 04/13/2020 [facility] 5 mg 01/30/2020 12:00:00 AM EST capsule 90 TAKE ONE CAPSULE BY MOUTH EVERY DAY TAKE ONE CAPSULE BY MOUTH EVERY DAY SOLD: 06/19/2020 [facility] 5 mg 01/30/2020 12:00:00 AM EST capsule 90 TAKE ONE CAPSULE BY MOUTH EVERY DAY TAKE ONE CAPSULE BY MOUTH EVERY DAY SOLD: 01/30/2020 [facility] carvedilol 6.25 MG Oral Tablet CARVEDILOL 10/31/2019 12:00:00 AM EST tablet 60 TAKE ONE TABLET BY MOUTH TWICE A DAY TAKE ONE TABLET BY MOUT H TWICE A DAY SOLD: 11/28/2019 [facility] carvedilol 6.25 MG Oral Tablet CARVEDILOL 10/31/2019 12:00:00 AM EST tablet 60 TAKE ONE TABLET BY MOUTH TWICE A DAY TAKE ONE TABLET BY MOUT H TWICE A DAY SOLD: 11/01/2019 [facility] carvedilol 6.25 MG Oral Tablet CARVEDILOL 10/31/2019 12:00:00 AM EST tablet 60 TAKE ONE TABLET BY MOUTH TWICE A DAY TAKE ONE TABLET BY MOUT H TWICE A DAY SOLD: 12/27/2019 [facility] 160-4.5 mcg/actuation 10/08/2019 12:00:00 AM EST HFA aerosol inhaler 30 INHALE TWO PUFFS BY MOUTH TWICE A DAY INHALE TWO PUFFS BY MOUTH TWICE A DAY SOLD: 03/10/2020 [facility] 160-4.5 mcg/actuation 10/08/2019 12:00:00 AM EST HFA aerosol inhaler 30 INHALE TWO PUFFS BY MOUTH TWICE A DAY INHALE TWO PUFFS BY MOUTH TWICE A DAY SOLD: 03/03/2020 [facility] 160-4.5 mcg/actuation 10/08/2019 12:00:00 AM EST HFA aerosol inhaler 30 INHALE TWO PUFFS BY MOUTH TWICE A DAY INHALE TWO PUFFS BY MOUTH TWICE A DAY SOLD: 12/23/2019 [facility] 160-4.5 mcg/actuation 10/08/2019 12:00:00 AM EST HFA aerosol inhaler 30 INHALE TWO PUFFS BY MOUTH TWICE A DAY INHALE TWO PUFFS BY MOUTH TWICE A DAY SOLD: 10/11/2019 [facility] 50 mg 08/13/2019 12:00:00 AM EDT tablet 120 TAKE ONE TABLET BY MOUTH EVERY 6 HOURS NEEDED MAXIMUM DAILY DOSE = 4 TAKE ONE TABLET BY MOUTH EVERY 6 HOURS A S NEEDED MAXIMUM DAILY DOSE = 4 SOLD: 01/26/2020 [facility] 90 mcg/actuation 07/16/2019 12:00:00 AM EDT HFA aerosol inha ler 25 INHALE TWO PUFFS BY MOUTH EVERY 4 HOURS NEEDED INHALE TWO PUFFS BY MOUTH EVERY 4 HOURS NEEDED SOLD: 10/22/2019 [facility] 90 mcg/actuation 07/16/2019 12:00:00 AM EDT HFA aerosol inha ler 25 INHALE TWO PUFFS BY MOUTH EVERY 4 HOURS NEEDED INHALE TWO PUFFS BY MOUTH EVERY 4 HOURS NEEDED SOLD: 11/28/2019 [facility] 2.5 mg /3 mL (0.083 %) 07/16/2019 12:00:00 AM EDT solu tion for nebulization 75 USE 1 VIAL IN NEBULIZER FOUR TIMES A DAY NEEDED USE 1 VIAL IN NEBULIZER FOUR TIMES A DAY NEEDED SOLD: 01/26/2020 [facility] 2.5 mg /3 mL (0.083 %) 07/16/2019 12:00:00 AM EDT solu tion for nebulization 75 USE 1 VIAL IN NEBULIZER FOUR TIMES A DAY NEEDED USE 1 VIAL IN NEBULIZER FOUR TIMES A DAY NEEDED SOLD: 10/29/2019 [facility] 18 mcg 04/23/2019 12:00:00 AM EDT capsule, w/inhalation d evice 90 INHALE THE CONTENTS OF ONE CAPSULE VIA HANDIHALER BY MOUTH DAILY INHALE THE CONTENTS OF ONE CAPSULE VIA HANDIHALER BY MOUTH DAILY SOLD: 12/23/2019 [facility] 18 mcg 04/23/2019 12:00:00 AM EDT capsule, w/inhalation d evice 90 INHALE THE CONTENTS OF ONE CAPSULE VIA HANDIHALER BY MOUTH DAILY INHALE THE CONTENTS OF ONE CAPSULE VIA HANDIHALER BY MOUTH DAILY SOLD: 10/15/2019 [facility] 20 mg 03/23/2019 12:00:00 AM EDT capsule,delayed release (DR/EC) 90 TAKE 1 CAPSULE 1/2 HOUR BEFORE DINNER NEEDED TAKE 1 CAPSULE 1/2 HOUR BEFORE DINNER NEEDED SOLD: 11/01/2019 [facility] 40 mg 03/09/2019 12:00:00 AM EDT tablet 180 TAKE ONE TABLET BY MOUTH TWICE A DAY TAKE ONE TABLET BY MOUTH TWICE A DAY SOLD: 11/28/2019 [facility] Insurance Providers Payer name Policy type / Coverage type Policy ID Covered democrat ID Covered democrat's relationship to wynne Policy [place] Plan Information MEDICARE COMPLETE [id number] SP [id number] [facility]IC[facility] O [id number] S [id number] OTHER B [id number] Self [id number] [facility] MEDICARE COMPLETE G [id number] Self [id number] OTHER B [id number] Self [id number] OTHER B [id number] Self [id number] [employer] P [id number] S [id number] Medicare Wrap S [id number] S [id number] [facility] Medicare Commercial [id number] Self [id number] MEDICARE [id number] SP [id number] A [employer] P [id number] S [id number] Medicare S [id number] S [id number] A [employer] P [id number] S [id number] [employer] P [id number] S [id number] [employer] P [id number] S [id number] Medicare Wrap S [id number] S [id number] [facility] MEDICARE COMPLETE G [id number] Self [id number] [employer] P [id number] S [id number] [employer] P [id number] S [id number] MEDICARE A [id number] Self [id number] A UNITED [id number] Self [id number] MEDICARE C [id number] S [id number] A MEDICAID UNAVAILABLE UNAVAILA BLE MEDICARE [id number] SP [id number] MEDICAID [id number] SP [id number] MEDICARE [id number] SP [id number] A Problems, Conditions, and Diagnoses Code Display Name Description Problem Type Effective Dates Data Source(s) Z68.43 Body mass index (BMI) 50-59.9 , adult Rudy dy mass index (BMI) 50.0-59.9, adult Diagnosis 06/25/2020 06:00:46 PM EDT [facility] E66.01 Morbid (severe) obesity due to excess ca lories Morbid (severe) obesity due to excess calories Diagnosis 06/25/2020 06:00:46 PM EDT [facility] F31.0 Bipolar disorder, current episode hypoma rosetta Bipolar disorder, current episode hypomanic Diagnosis 06/25/2020 06:00:33 PM EDT [facility] G47.33 Obstructive sleep apnea (adult) (pediatr ic) Obstructive sleep apnea (adult) (pediatric) Diagnosis 06/24/2020 12:04:05 PM EDT [facility] J44.9 Chronic obstructive pulmonary disease, u nspecified Chronic obstructive pulmonary disease, unspecified Diagnosis 06/24/2020 12:04:04 PM EDT [facility] R07.2 Precordial pain Precordial pain Diagnosis 06/24/2020 11:2 9:56 AM EDT [facility] R06.02 Shortness of breath Shortness of breath Diagnosis 0 06/24/2020 10:56:03 AM EDT [facility] [place] Diagnosis 06/24/2020 07:49:43 AM ED T [facility] Results ID Date Data Source [id number] 07/10/2020 10:54:56 AM EDT [facility] Name Value Range Interpretation Code Description Data Roxy rce(s) Supporting Document(s) Discharge Summary [facility] SDPCQw7aVkBLZvSo33/PXGasEXByb4CoVPyjBUw1CSjbXAFzL7GwLAV5wC9sLIH6ATfFOjVdVwHeSNW1 lbm [file] ICAgICAgICAgICAgICAgICAgICAgICAgICAgICAgIC AgICAgICAgICAgICAgICAgICAgICAgICAgICAgICAgICAgICAgICAgDQogICAgICAgICAgICAgICAgIC AgICAgICAgICAgICAgICAgICAgICAgICAgICAgICAgICAgICAgICAgICAgICAgICAgICAgICAgICAgIC AgICAgICAgICAgICAgICAgICAgICAgDQogICAgICAg ICAgICAgICAgICAgICAgICAgICAgICAgICAgICAgICAgICAgICAgICAgICAgICAgICAgICAgICAgICAg ICAgICAgICAgICAgICAgICAgICAgICAgICAgICAgICAgDQogICAgICAgICAgICAgICAgICAgICAgICAg ICAgICAgICAgICAgICAgICAgICAgICAgICAgICAgIC AgICAgICAgICAgICAgICAgICAgICAgICAgICAgICAgICAgICAgICAgICAgDQogICAgICAgICAgICAgIC AgICAgICAgICAgICAgICAgICAgICAgICAgICAgICAgICAgICAgICAgICAgICAgICAgICAgICAgICAgIC AgICAgICAgICAgICAgICAgICAgICAgICAgDQogICAg ICAgICAgICAgICAgICAgICAgICAgICAgICAgICAgICAgICAgICAgICAgICAgICAgICAgICAgICAgICAg ICAgICAgICAgICAgICAgICAgICAgICAgICAgICAgICAgICAgDQogICAgICAgICAgICAgICAgICAgICAg ICAgICAgICAgICAgICAgICAgICAgICAgICAgICAgIC AgICAgICAgICAgICAgICAgICAgICAgICAgICAgICAgICAgICAgICAgICAgICAgDQogICAgICAgICAgIC AgICAgICAgICAgICAgICAgICAgICAgICAgICAgICAgICAgICAgICAgICAgICAgICAgICAgICAgICAgIC AgICAgICAgICAgICAgICAgICAgICAgICAgICAgDQog ICAgICAgICAgICAgICAgICAgICAgICAgICAgICAgICAgICAgICAgICAgICAgICAgICAgICAgICAgICAg ICAgICAgICAgICAgICAgICAgICAgICAgICAgICAgICAgICAgICAgDQogICAgICAgICAgICAgICAgICAg ICAgICAgICAgICAgICAgICAgICAgICAgICAgICAgIC TeKTXkFGBzWNQyJTSiUXUgSULeLHAaFFJdVRWwSSDgCHUiSURjWSJtSVWkWBGqGEBiBGc1Y4ucQSBsGL GgZI0aLBy2Hc5+JPdBRcDwPPT9nvBapC4NDA7pz9FfAWvfHNRgo5YkVIr8JP7HMDEiJBasCG5EVUcqjf 0JFQSaBILxdSZGh9ybHpRmJMO1RDTuZtktUX0SRZHh U6ibvjGiWKSjXLHZLHdtLITSMOycMDQVDSMjIVNiDkGrQvWzLNFlNLEqUQYCSON7ZJKaEtUePTklYT1J m4ZauAT8LIo+Sw2PNL4it3HkTOiqKtXoPY9zto4HHJbMGyNuK4NaprI6TJYkQQOdOz9GCBVpYSMmgCSy HzOjCXDFAaDzZ6MzuD02WGLTPe4+DQplbmRvYmoNCj GvVVYng6YvIPh9FC4BEUByYZc7wDFtWPyoZ4qasheiIIS1pZ1dedaxVyxlFZYaRY5fTMAiFzQJHWpvee vzPMZgXWHvOC3sQnLrIeEkKBI4BPqaXF6iAVkjTM0ZYBC3YGpgTWLuPYDbL8hMTwHsJNNyPsShfHryIZ 6QPgKuP1XkqwLkaMRoKwVjHEYDSc7+DQplbmRvYmoN NbT4SKKqs0PaJBp3QS6JSJGgPStyJR6HVUQrnT5iZUgcIW6YKtMgUAUaVOHLCjBmK75krKIlQHy0A4Uk YmVkZGVkRmlsZXMgPDwvTmFtZXMgWyBdDQogID4+ID4+UOfiWZ6BTFkmixDkRRErMl6TTLPvLOCfRN3t ATQjDXXzK1I4oOgkBRIPFkTkG2myzpccLL0xJCLsZ4 20yKqwrsUpXROjTTKiXg8OKVJlNRN7WQOzjIRsClEcQMMUULwsUJ5DnRIgFJV0sQ1qGAtrHDHwRKPpW4 cCTrPtnSspNT27dSjhlgAozCHlOWg+Yk8LVD7jc6RzWXe1rvYwEDrgQQE0CHzyDHSiJCJoXOEiFVU2GI L1QAZTDjVxOUNuKYTcRKmeVWOfSRUkph2JPQYyXXYb IsR4VgUjQONbRIFzTJqqLSOiZLV6JMU3ZHLjLFXuPM8MSyMwXVFwMNUzSJyjDCVaJJTxbj0NTIJnIPCu REN9VOLnRDNtKECoTHuoMRYnJTG4MukoTTIgZNYoRV2WLcQgLLAbGSr4SHFmJKApICBxna0VOIUrWKGf DsD7EsVlTTWcJONdBZuiRRUjNOY4LQDuXTGoMSQpIM 7PEmIhHAXpRSKdFaErMPKyUPWmhl4SUOHfYJNfSti2DWQbEQJdPQYyKUpiHWZpPKQhMIm3AFSkSUYnEY 4ZAyGcUNAhFHF1DsGkYWWjCGFbqs0QIUFlCZMnLxl9XaUcNPWoSBTqHNowNZVnQBW6OjQ7CVFvOOJsOH 7STnGaENCnRBn9LXOeGKKtEIYnuo7QRMOcHJMiFEF3 PREpNGKaOYJcETkqJPLhVIDkXlYzQDQcBANzDQ5OBsWiRBRzLnPdEqJeLUJzEGDwou8ICZZdCSVwClZg EfLxTZTyDNFrILgeYAHdAGVoSqCbDZXwXPJdAN8RZnPhCGLcBfI9NYjiHOBwVEBamm6ANJLxRAHcNbx4 XXNsSLJpGRZhAUduENNeNGKdMCB2FITiDRObPI5USk YmAZNzTrY7XWmlXJQoJBEtuw9TGJTdGIMyCRBaZwGeHDHyGLNcEUbxOUXcFQA9Ihq7OJFcPSYfNF9PJy OsGEFiNeHgIIhnAEUyOBXibm8FJXBlHATrFxP2UaLmDFVxBXQqJDiaUPToCUU8HuXuCBGtMHFkDR2VDn KtIHNdRadeZIMyUVPwQJTdow3QYUAdACYmEIP0YrGr FKUeHJLnJMwzOQRyYUY9JzDkYBIvCSMkAS1QQoJwGMMxXwe0FJChYTNdHWBlux7TsSFuvJctkt2YYRaE Cw2WbTfvHGM9ZGsjJh2zxVUsLEBoMLOUHf4EqkVtWDZdRWTMHVquYROrGXMdLvQgIsL3QOF4DptlKFLf EWZzXma7MXyvVZakAWSpEqR0EPRsWoDoCSu9SWcnBK AbMuT0Q0FzEfsaS4GxT2D3QJP+UV5iAIb+Fg8Eb7XtbbO0rvIlKTweBLNrYE8HYYEWM2BELu== ID Date Data Source [id number] [facility]2020 [facility]23[facility] Value Range Interpretation Code Description Data Roxy rce(s) Supporting Document(s) Glucose [Mass/volume] in Capillary blood by Glucometer 177 mg/dL 70- 140 [facility] ID Date Data Source [id number] 06/27/2020 08:36:09 AM [facility] Name Value Range Interpretation Code Description Data Roxy rce(s) Supporting Document(s) Glucose [Mass/volume] in Capillary blood by Glucometer 98 mg/dL 70- 140 [facility] ID Date Data Source [id number] 06/27/2020 06:01:[address] [facility] Value Range Interpretation Code Description Data Roxy rce(s) Supporting Document(s) Leukocytes [#/volume] in Blood by Automated count 11.7 10*3/uL 4-10 [facility] Erythrocytes [#/volume] in Blood by Automated count 4.11 10*6/uL 4.6- 6.1 [facility] Hemoglobin [Mass/volume] in Blood 11.9 g/dL 13.5-18 L [facility] Hematocrit [Volume Fraction] of Blood by Automated count 38.2 % 4 1-53 [facility] Erythrocyte mean corpuscular volume [Entitic volume] by Auto mated count 93.0 fL 80-96 [facility] Erythrocyte mean corpuscular hemoglobin [Entitic mass] by Automated count 29.0 pg 27-33 [facility] Erythrocyte mean corpuscular hemoglobin concentration [Mass/volume] by Autom[facility] count 31.2 g/dL 32.0-[facility] width [Ratio] by Automated count 15.8 % 11.5-14.5 [facility] Platelets [#/volume] in Blood by Automated count 251 10*3/uL 150-400 [facility] Differential cell count method - Blood [facility] Neutrophils/100 leukocytes in Blood by Automated count 74 % [facility] Lymphocytes/100 leukocytes in Blood by Automated count 16 % [facility] Monocytes/100 leukocytes in Blood by Automated count 8 % [facility] Eosinophils/100 leukocytes in Blood by Automated count 1 % [facility] Basophils/100 leukocytes in Blood by Automated count 1 % [facility] Neutrophils [#/volume] in Blood by Automated count 8.73 10*3/uL 1.8-7 .0 [facility] Lymphocytes [#/volume] in Blood by Automated count 1.89 10*3/uL 1.2-4 .0 [facility] Monocytes [#/volume] in Blood by Automated count 0.89 10*3/uL 0-0.8 [facility] Eosinophils [#/volume] in Blood by Automated count 0.08 10*3/uL 0-0.5 [facility] Basophils [#/volume] in Blood by Automated count 0.09 10*3/uL 0-0.2 [facility] Nucleated erythrocytes/100 leukocytes [Ratio] in Blood by Automated count 0 /100{WBCs} 0-0 [facility] ID Date Data Source [id number] 06/27/2020 06:32:57 AM EDT [facility] Name Value Range Interpretation Code Description Data Roxy rce(s) Supporting Document(s) Bicarbonate [Moles/volume] in Serum 34 mmol/L 22-29 H [facility] Confirmed Chloride [Moles/volume] in Serum or Plasma 95 mmol/L 98-107 [facility] Creatinine [Mass/volume] in Serum or Plasma 0.91 mg/dL 0.70-1.20 [facility] Glucose [Mass/volume] in Serum or Plasma 95 mg/dL 70-140 [facility] Potassium [Moles/volume] in Serum or Plasma 3.9 mmol/L 3.4-5.1 [facility] Sodium [Moles/volume] in Serum or Plasma 137 mmol/L 136-145 [facility] Urea nitrogen [Mass/volume] in Serum or Plasma 20 mg/dL 8-23 [facility] Anion gap 3 in Serum or Plasma 8 mmol/L 8-15 [facility] Confirmed Osmolality of Serum or Plasma by calculation 286 mosm/kg 275-300 [facility] Creatinine/Urea nitrogen [Mass Ratio] in Serum or Plasma 22 [facility] Calcium [Mass/volume] in Serum or Plasma 8.4 mg/dL 8.8-10.2 L [facility] Glomerular filtration rate/1.73 sq M pre dicted among non-blacks [Volume Rate/Area] in Serum or Plasma by Creatinine-based formula (MDRD) 90 mL/min/1.73m2 >60 [facility] Glomerular filtration rate/1.73 sq M pre dicted among blacks [Volume Rate/Area] in Serum or Plasma by Creatinine-based formula (MDRD) >60 [facility] ID Date Data Source [id number] 06/27/2020 05:11:51 AM [facility] Name Value Range Interpretation Code Description Data Roxy rce(s) Supporting Document(s) Leukocytes [#/volume] in Blood by Automated count 4-10 [facility] Called to and read back Chidi JONES RN ON 10G Erythrocytes [#/volume] in Blood by Automated count 4.6-6. 1 [facility] Hemoglobin [Mass/volume] in Blood 13.5-18 [facility] Hematocrit [Volume Fraction] of Blood by Automated count 4 1-53 [facility] Erythrocyte mean corpuscular volume [Entitic volume] by Automate d count 80-96 [facility] Erythrocyte mean corpuscular hemoglobin [Entitic mass] by Au tomated count 27-33 [facility] Erythrocyte mean corpuscular hemoglobin concentration [Mass/volume] by [facility] 32.0-36.0 [facility] width [Ratio] by Automated count 11.5-14.5 [facility] Platelets [#/volume] in Blood by Automated count 150-400 [facility] Sample quality of Dried blood spot [facility] Differential cell count method - Blood [facility] ID Date Data Source [id number] 06/27/2020 05:45:17 AM [facility] Name Value Range Interpretation Code Description Data Roxy rce(s) Supporting Document(s) Bicarbonate [Moles/volume] in Serum 26 mmol/L 22-29 [facility] Chloride [Moles/volume] in Serum or Plasma 95 mmol/L 98-107 [facility] Creatinine [Mass/volume] in Serum or Plasma 0.87 mg/dL 0.70-1.20 [facility] Glucose [Mass/volume] in Serum or Plasma 97 mg/dL 70-140 [facility] Potassium [Moles/volume] in Serum or Plasma 5.8 mmol/L 3.4-5.1 [facility] Hemolyzed Sodium [Moles/volume] in Serum or Plasma 129 mmol/L 136-145 [facility] Urea nitrogen [Mass/volume] in Serum or Plasma 19 mg/dL 8-23 [facility] Anion gap 3 in Serum or Plasma 8 mmol/L 8-15 [facility] Osmolality of Serum or Plasma by calculation 270 mosm/kg 275-300 [facility] Creatinine/Urea nitrogen [Mass Ratio] in Serum or Plasma 22 [facility] Calcium [Mass/volume] in Serum or Plasma 8.5 mg/dL 8.8-10.2 L [facility] Glomerular filtration rate/1.73 sq M pre dicted among non-blacks [Volume Rate/Area] in Serum or Plasma by Creatinine-based formula (MDRD) >6 0 [facility] Glomerular filtration rate/1.73 sq M pre dicted among blacks [Volume Rate/Area] in Serum or Plasma by Creatinine-based formula (MDRD) >60 [facility] ID Date Data Source [id number] 06/26/2020 08:22:[address] [facility] Value Range Interpretation Code Description Data Roxy rce(s) Supporting Document(s) Glucose [Mass/volume] in Capillary blood by Glucometer 147 mg/dL 70- 140 H [facility] ID Date Data Source [id number] 06/26/2020 05:00:[address] [facility] Value Range Interpretation Code Description Data Roxy rce(s) Supporting Document(s) Glucose [Mass/volume] in Capillary blood by Glucometer 136 mg/dL 70- 140 [facility] ID Date Data Source [id number] 06/26/2020 12:25:[address] [facility] Value Range Interpretation Code Description Data Roxy rce(s) Supporting Document(s) Glucose [Mass/volume] in Capillary blood by Glucometer 100 mg/dL 70- 140 [facility] ID Date Data Source [id number] 06/26/2020 08:12:[address] [facility] Value Range Interpretation Code Description Data Roxy rce(s) Supporting Document(s) Glucose [Mass/volume] in Capillary blood by Glucometer 127 mg/dL 70- 140 [facility] ID Date Data Source [id number] 06/26/2020 04:26:[address] [facility] Value Range Interpretation Code Description Data Roxy rce(s) Supporting Document(s) Leukocytes [#/volume] in Blood by Automated count 16.8 10*3/uL 4-10 [facility] Erythrocytes [#/volume] in Blood by Automated count 4.05 10*6/uL 4.6- 6.1 L [facility] Hemoglobin [Mass/volume] in Blood 11.8 g/dL 13.5-18 L [facility] Hematocrit [Volume Fraction] of Blood by Automated count 37.4 % 4 1-53 L [facility] Erythrocyte mean corpuscular volume [Entitic volume] by Auto mated count 92.2 fL 80-96 [facility] Erythrocyte mean corpuscular hemoglobin [Entitic mass] by Automated count 29.1 pg 27-33 [facility] Erythrocyte mean corpuscular hemoglobin concentration [Mass/volume] by Automated count 31.5 g/dL 32.0-36.0 [facility] distribution width [Ratio] by Automated count 15.7 % 11.5-14.5 [facility] Platelets [#/volume] in Blood by Automated count 272 10*3/uL 150-400 [facility] Differential cell count method - Blood [facility] Neutrophils/100 leukocytes in Blood by Automated count 87 % [facility] Lymphocytes/100 leukocytes in Blood by Automated count 7 % [facility] Monocytes/100 leukocytes in Blood by Automated count 5 % [facility] Eosinophils/100 leukocytes in Blood by Automated count 0 % [facility] Basophils/100 leukocytes in Blood by Automated count 1 % [facility] Neutrophils [#/volume] in Blood by Automated count 14.59 10*3/uL 1.8- 7.0 H [facility] Lymphocytes [#/volume] in Blood by Automated count 1.24 10*3/uL 1.2-4 .0 [facility] Monocytes [#/volume] in Blood by Automated count 0.84 10*3/uL 0-0.8 [facility] Eosinophils [#/volume] in Blood by Automated count 0.03 10*3/uL 0-0.5 [facility] Basophils [#/volume] in Blood by Automated count 0.11 10*3/uL 0-0.2 [facility] Nucleated erythrocytes/100 leukocytes [Ratio] in Blood by Automated count 0 /100{WBCs} 0-0 [facility] ID Date Data Source [id number] 06/26/2020 04:35:00 AM EDT [facility] Name Value Range Interpretation Code Description Data Roxy rce(s) Supporting Document(s) Bicarbonate [Moles/volume] in Serum 31 mmol/L 22-29 [facility] Chloride [Moles/volume] in Serum or Plasma 93 mmol/L 98-107 L [facility] Creatinine [Mass/volume] in Serum or Plasma 0.97 mg/dL 0.70-1.20 [facility] Glucose [Mass/volume] in Serum or Plasma 120 mg/dL 70-140 [facility] Potassium [Moles/volume] in Serum or Plasma 5.1 mmol/L 3.4-5.1 [facility] Hemolyzed Sodium [Moles/volume] in Serum or Plasma 135 mmol/L 136-145 L [facility] Urea nitrogen [Mass/volume] in Serum or Plasma 20 mg/dL 8-23 [facility] Anion gap 3 in Serum or Plasma 11 mmol/L 8-15 [facility] Osmolality of Serum or Plasma by calculation 285 mosm/kg 275-300 [facility] Creatinine/Urea nitrogen [Mass Ratio] in Serum or Plasma 21 [facility] Calcium [Mass/volume] in Serum or Plasma 8.7 mg/dL 8.8-10.2 L [facility] Glomerular filtration rate/1.73 sq M pre dicted among non-blacks [Volume Rate/Area] in Serum or Plasma by Creatinine-based formula (MDRD) 87 mL/min/1.73m2 >60 [facility] Glomerular filtration rate/1.73 sq M pre dicted among blacks [Volume Rate/Area] in Serum or Plasma by Creatinine-based formula (MDRD) >60 [facility] ID Date Data Source [id number] [facility]2020 [facility]59[facility] Interpretation Code Description Data Roxy rce(s) Supporting Document(s) Glucose [Mass/volume] in Capillary blood by Glucometer 137 mg/dL 70- 140 [facility] ID Date Data Source [id number] 06/25/2020 05:41:01 PM EDT [facility] Value Range Interpretation Code Description Data Roxy rce(s) Supporting Document(s) Glucose [Mass/volume] in Capillary blood by Glucometer 199 mg/dL 70- 140 [facility] ID Date Data Source [id number] 06/25/2020 02:38:51 PM EDT [facility] Value Range Interpretation Code Description Data Roxy rce(s) Supporting Document(s) [facility] AOFEGz8iLxKVExLs72/MLUdyBETgt7UyGNmbKGn8GQzmIQQxW0UhOLI2hZ9bETF6LAhLHpHeQtEtYxTv lbm [file] ICAgICAgICAgICAgICAgICAgICAgICAgICAgICAgIC AgICAgICAgICAgICAgICAgICAgDQogICAgICAgICAgICAgICAgICAgICAgICAgICAgICAgICAgICAgIC AgICAgICAgICAgICAgICAgICAgICAgICAgICAgICAgICAgICAgICAgICAgICAgICAgICAgICAgICAgIC AgDQogICAgICAgICAgICAgICAgICAgICAgICAgICAg ICAgICAgICAgICAgICAgICAgICAgICAgICAgICAgICAgICAgICAgICAgICAgICAgICAgICAgICAgICAg ICAgICAgICAgICAgDQogICAgICAgICAgICAgICAgICAgICAgICAgICAgICAgICAgICAgICAgICAgICAg ICAgICAgICAgICAgICAgICAgICAgICAgICAgICAgIC AgICAgICAgICAgICAgICAgICAgICAgDQogICAgICAgICAgICAgICAgICAgICAgICAgICAgICAgICAgIC AgICAgICAgICAgICAgICAgICAgICAgICAgICAgICAgICAgICAgICAgICAgICAgICAgICAgICAgICAgIC AgICAgDQogICAgICAgICAgICAgICAgICAgICAgICAg ICAgICAgICAgICAgICAgICAgICAgICAgICAgICAgICAgICAgICAgICAgICAgICAgICAgICAgICAgICAg ICAgICAgICAgICAgICAgDQogICAgICAgICAgICAgICAgICAgICAgICAgICAgICAgICAgICAgICAgICAg ICAgICAgICAgICAgICAgICAgICAgICAgICAgICAgIC AgICAgICAgICAgICAgICAgICAgICAgICAgDQogICAgICAgICAgICAgICAgICAgICAgICAgICAgICAgIC AgICAgICAgICAgICAgICAgICAgICAgICAgICAgICAgICAgICAgICAgICAgICAgICAgICAgICAgICAgIC AgICAgICAgDQogICAgICAgICAgICAgICAgICAgICAg ICAgICAgICAgICAgICAgICAgICAgICAgICAgICAgICAgICAgICAgICAgICAgICAgICAgICAgICAgICAg ICAgICAgICAgICAgICAgICAgDQogICAgICAgICAgICAgICAgICAgICAgICAgICAgICAgICAgICAgICAg ICAgICAgICAgICAgICAgICAgICAgICAgICAgICAgIC JiNYPmKPCdLXMkQNPtUZAcSGPgUQOdHINfAEXsMBk9K5djDGHbRBRuLY6kKZv5Sg6+SAtILmAhEAI3hh TmdW0BPO4rh3FoCQdsBYHcu1OmIDg7VI4XDIDgYMwjXJ4EFLtphk4WZVXoQWAlgUOQj6ajEaEaQNO0NH GbKrmwDE6QLHKsW7izslSpIABuUWGLOE5LCrIuV2Xj rT45EFPUHc8+LVastbXlFogERdZ0YFGhf3OhNEi9EI9OCWByRhthe6ZkQNFyMFGHMHjyXQ3DWZW4ADQ3 INGaPe8TKRLxG593ehLzPJ3BOw3VOrNvLJ8rhv0KVVBgETEyCzrTYyf0QHdoOF9PwCNvMOfQb86yjJl4 xaBwjCGWgxFbmvwyKMZornVvyl4SBFrkASNqSAhCK9 seMVWhQj4vGP3gIENfYFJvRtT0TDPGHW1YJCRoLREgaMSgYDCgLKCBDD6OWNpxLFW2ORTdmoMokAEqYV tiCG4XXZOxsfYaCEHoCFPNONh+Lz6YGM5nx9XbZSmbDkFgTV2ifi3OKAzITwMpO3C0nSSgT2K2JSuiMh 0MVDEkTBZgQMGrBGWJABndCH2KWC2pqjG5FJ6DdIAq ARVcHWMqcAXuAFu2P99liRKiIMjfIK3KCIO+Sukhdev+Fo3OOFMjBJHaGZGqTmWfQAHIOvIrD2LuO0PFe6Os I5KcGJ30aEbmswDuTSwaNP7BIW1sGANjJCCGDY2UeSWokM0fjiHvQEHcGGCCMoPwI19bdGKyYGYnMFYm TXPtLi0IZGReM6DshvMkoQxbcbPvMBFrDWEBYM7JFI tegcNnsSWerGqhMC28tXukEK7NXf1ZRpRqDL0rid3XnTJkIm2QFRGgGv6BWHYkOJRfZXPtGIX4NMGbUp EdNSrqZZLiMYVmQPQ8DRFxALJgMY7KKzZcFHLcHNF0CrZiMSFcPKNvuz3USKVyWEEwPbD9DzYyNPLsQS XtYZkkVPBfSBVuMDD9VXOfXGBxEU5SCdKmCCHmEPO2 VlVdQPBpUTCjvp9NODUjXPUfZsf5DoMxADGbSQGiALaeLHSjJTFeYkS7EDSmWJDyWB6LEaPwKYGrWGQ6 OuTzHNZaNLKgmy6JGQIdBXEfUWWnWsUqTBXiSCItUYnoFQIxEHO0QFLeSLGvEFBwCE7VObFmONWnFCHy XjYwYNFfWNAbqz9WIOFgDLDsUBB3RHAcSXPbJLBmTR pvIRWnEFQ6UNTuAJVnUYDhOD0UWbVbWMJlFMfeVHIfBQHzDIXqjy3DLBKpBLPxHjK4ZwYiBRWuSRJxOR hfATEyIIH9WUW1ZTLjJGUjAC7COeQqIEvkYCTZDzl5ACpbE4t4YAUjEk6CU8Lzm0ScCNPiWGJHSRyuZV 9qsvVkVFFjQu9UV5tRJie7BTadTSR7LoCuRoYzODio E8PrIVEwYFimRsIsFCC6Yz7bEKR8DAUuRCa9IxFkASTiA8QvXQH0NXO5O3UeYRRtKZq1CbBaLE0HQe1X KdX1SJV0aHGzPl9NVpk5DG7GYUSEK7FKGs== ID Date Data Source [id number] 06/25/2020 11:59:09 AM [facility] Name Value Range Interpretation Code Description Data Roxy e(s) Supporting Document(s) [facility] NGGUUk1tOtVPBkYtu0UnVaBaBPSyXE8regh1Y4E5iKPfK4IvkXQqj8vuE5NaF1AvWFFxDWZRGT2AdFKg jb2 [file] Karina/nTlsMfB74Fo9UsAvZI2XbCM0mALj2k3QK0yLzxfq7BexyYz90DzGUW3Zx4ajjhYlLUR8wcKS6j3q EdrJHhc7yQCU8OH1kZjhAy6tfyXMnLp94lPAHIhApr ijpiVgsZDfxixWC9bMin55bJbcfF+zoRcV54ZEcsnyaq1KhCoU62aLsuVJFdXbyUg9oXD+D2+17G99fI +Mi/L8mKVbQNLmfiy8OFLq2/KFR23FbgYeQq3PW3pE218RqJs4hsvkr3b9tDxgMbjA/L7bOGRbgsjC9r o1k5gTglpz0W3FepfpPvBw0nvo09WDWuqwapB6MStp GcTwixa8VFu22jFE2voSWqf1Tg49fzhc8UhPI/0Votv76yyfVhTejRPjVYUxBy/guVrxHNdweE/PdvCi xaG5V9YHpVmXM/Hoflj1h6MJ4ZupaKn3BI5+AZWGqId50K776ZvVt0od+gy8+/JGLa567SWZhbi7+x67 GNMyCg1dwE297SZ87N2dX8wLNr9q04kVgJ/e9N8bQJ YDRi7fpI1zYg1cc/l8aOUfu8kIuzJ6NteBTr1+wfCXnTHh78Qu99Ty85Bzlj8rw7yd4KttH+dHcXjDq7 Paradise+H9pwW1o431x3PBXi4qkI+/EanXFm69A/+PzZj2lZy7eCxc6HqWkzZrjq291zr4+N1d/O7epZ/0u9 fj7ZHPS6bHJo5Sk/hFE+6cEoJpnkOZe2PJVMdb0rSj sVCf9PAiC17CreN5VW4ogY+a3lkK6yxRd2sawUtEr2xENL3QucJq6DupN4QIr0UfE8xwdFq9m4EIOdeQ bVa0zKe4aecwmqYmL3jyJ8sPyGJJmyU/qHJ+sYs2sKh7xynpu1nTE6uxjkG1stHofyFghoRucWiWjbmY D61jvTGG1xDwPi4lXl3tfoRyMQcarI1ctXzuuof8W2 I2IiTlu9Ku/uN1EOblkbCn5Jv+f9HHqbdymZtplW8mpBrmg9AQuNaspm257Sud/5je5wXt4AUvSPtnAj ziMtsT8gO3Hxkj5fYBxFllA4OjZOAlQOifdjP50YEgcZDuCf3655Pvmh88GK6wzG7SpdryU3S8OsJvxb fOjO8+DQ0p7hh8BQVbPv+2usssbanZ13XEj3zIzhC5 p+xW/IcJf0JWUh2Y+V4r1jXZlnVaoxwA9ntKc383zJwnfFZcG30Op/E8CmwBS6PiLK6KFp4n4TpxCK3I o2zzrNgc7Ct80Mpk7L7fFz+0Uy4ntEEry32w4kmvalrYG0RTi+L6GLmWe+iQR8fsEumeXLyI4VvhIuW8 bEETpEcEe1A9NOyGZdKm8oBxwySDztjeyN9salhf4G 2s0IzCfC+r2EuJ7+gohijTR0qH70u8I7in8BthMeQvJqtXHeoXMhX2nfAwGU3AqN1S746I7YdK23hLS4 pwW2xAEllYM9x1O5qIJuFCGxwrn7X0M2t0db5bd05M7oqdfjHZNny5C0148O33snuObBN9NbhKG96wER kTQatp9Sh94RhdWfYORkj8U8+Mv/QS3+9uYz4zxZVl LIK7YxpFYFYB8dk9nUUG/N698GovJe32cA/pQv/UyZviCrAx5Y0NBndAgnwqv/LwhlsLx+kus/BmKcd1 tV72M/HAf8uZy60Mr/zDYXZKaB5Q5ecl4cX8sk+np0syTi7euIT7n/A4b+dE32od7+6Ttfsrp4vp0dXF dCWrjF7PdumG0+5vfdwILADFH8wk2Qs5787+pXf6l9 1XfeYxC72PFf+FV/KToYi4gUR1Qels5hMUi9zrGXjLxELolpfTMydCpoZFvQk4sZHHnTyil09aC+gF7/ yFF13ERdr+rq7EpoxSQlT+07o7zue692e9gi/x3eQV/wCDFnx8Lm9sKRT+TkFU5kI15+IBLiHnlY2ufn lnN/iG6FuepP7/wLGn3yZ4s00u/Wco9/y3h81cMK4L yb0+9+ER1AO0ty/qfwQedec21E/ey25HH3N558cpl/vW4/p33+K+/u77/35MpDzCDiGJB9gIZf8UdZdr xR//r/DAnIGqb5IDBWRGZBNt8ifQ3/d4g3225n01MadA1P/iDZ57tM02FCzn7J6E9dn1J4M1ubM590Vi A36/+rx07Qtqe50hH00eDvjsGpLSDjMNrg273aH5lj yzk1o3iVa+Ps/9/X7dmi23y208VwLc6101oc8fcgt9io/YaW+pqlUimDedkwa4t3/Fe91ZHY/w/q+9Oe u5k9302bvdlDRT4VSgpYa4+/d81+9fe1Nm/f49l3r+h896GYUrj5WCUfvaji9Q4nwo9oPmjWt6S0h/Ku SC/UoWh6u15E4T2044h+zrX4Vb+WrhTPZJdG9HTR8n +5e+nv+464vj33/ns96R3/Pqv7+lx9/bwz2VziLni+p4s427+bfg+Ezc1Vlz9wmiciQRRu7Ke7Xroz4D xn3+N9Jb722DcE/5JB3z02Fh89Xw4hE6qMv9qTV4/iwpgmm2c+E1zoWI4sa42LZ/+NN/FIEd05pA+b6d NiH/fPnn+w5pGrbvBnCJ0eFyNwV+/54ZGSybe01kwH jcMt867jlC7edw2Whvfx74J+dpz/3rbRu6ITZDX/P0X+/xi18t5J04/fdETeg+fAPpnM6hBV/wfMHzBc 83PN/wYSA7DYc23Lx1D5cy5Yz/+z9oLe3oTdWlb7pCZPJ3njX15/G9FrfH0/ZxU459xH2tP0UMDnjNhV Mz82dnC04UTQd2tmYayVE/cwjS0gn5r8qetP834/+J h/DVP9/tLYy0rfzvDfipVF7+o23m4itJ5VAXpHMS4+MJg/F0Zfph1XsDT9cHl7L4Gk69QHv6DwJ8Eu5w Yh98z/P5v3nVS54kc+/3fO/nFf9vnY/B+wrtG8i3rSc7WmHzP6bzN7N7EkfQ6U/r9VC8iAHUbCYwk/YK vWs04vnc3+OBUfxqVrCBBc+ahoCj2hqUpesZhcrt6+ JX97e+vSrdQbprvsh4u+9b/RusYEarsabpzl1K/+JX9/v0zx4cqpJf+WnvqOe/9tbe/Gfx9S1i96f9j/ D8Llir6J2P0x1EVK+C15o7JVvP+jjUM57+h46A05mv5NRil/KiNbqIDkP9EfELmQ0R2X4+1e9seF/gOb A14WeKbtGP60gM/wh9UCzL4ye64ha91cxch4l0Mx5Q X32/4Tm01+fL//Cr8wPyEt++b278mwx8ry69MTn+xCp2TIQgA84M+a2fVlmWlHs7ex780sZis5+Z16X1 H796v5+ef/zq/N35GL9I+R9+7dJQdi4Uxw960Id+y4E4uoY+Ih5hlcQ0run06LHa+cpNp7L2UKJ+B4xX YOx8ujKM0Lm0qlq+dX/OhFLJgtX5uyDhZUgPVaG+Qj 7uYnG7K+M1VtB0cl3C2zl1wr+Y3qt21gr9/wVAC6vr8k7n2qewyRkymnP5uWDE5xp22tqzpa/695uPsv jV+kIEqM8s+NWoeAVvvMrx+m8Oh/kwa7J3p16LbP/S74wIk3/d3/B8vnLn/Ac5WPGv+y0SHd3bY67caS 8etP2q7Kju3I8Yx0B0VdUit5/Wb32/D6vAgUtL/m+8 kxAAp4xX6yEI4rti6A4+/RdOA3Qx/fJf+9V/QXsPv+q6HX71/Xvs2ln22GTkCElFoApe88s2Iy6Mq/t3 wvN8zw+/2o3My9ki/m7Ip9sYwwmZ26ELf54d4im/+g6fYWJnRXybhz0r614Av1q/5miJbkb8/2bxq+oL +99VZpnJc9Y5W0LBq9YLaKV8WSExTAn5TZjE7oSUby 12myS71/f9Y6Jp9Td86c/9drTrIfowf9dGuw4VIn2RcaKcGYus6Ue7Ysp46GjDj+FXXrEgDr+v964cFy Df8/593v+iAXzPz/cz3hzU6a5//LtXKt3gKc/r+476/e705igx881ZCndXS1/I8l+VPst/1b8Vnr/5N/ DNr1t0uj/DeKVv/s3iV/c35P/4MffVR4SmoiwXIW4Y dzAyOu6hvDomgxU+gX66Hu6Rt3nJ7hfQrb3pJgkdn5qbHu5RazB5KlB711rh74/8jq8iYwGsK3vz6zm+ /55IZzqEYh7H0GeI/Tffnfqm7Gh+Slco1+J0j6vflaR5LqC+QD7P/9ah2410Q31237iim57v0ts/XOX/ 7cq8x14U/Parts Representative/wpFdtPfQJG7vtCC77+9j4PoaadH+p [file] Baljit/BpotA0twX8/BEd6CCMssTa/nIqx/psL5wNZHqRp l0GNhvxL5b/qEsdjF86F62Gn36SQglETLOP1wSwH4+WyhJrPdWk6AjFi9FMGJgdoipxNJbTIxOP9PPY4 S3CyED7lmaIr647vcU0fbnlqd3xn1IfUxiyeQxAimtQA2HlvqXI7HkveGYbSr48Hh9SusG3imyrvwqt/ azX24u1A2tXMtWgzhtMr9wvDwn5Wu1qpDdtNpT7uCu mnycgAB2ysEqMur5vMYw55lKe4YxKt/fMPnQ87I5LqO7jmvmLPfWtVLsas5TJTLzOBw0fxqKF0tP1x6w JRz5Dq9ioVmh9x6tsXEsUl/9kU4YIdpvNVMpAe+rKVoFXoW7JU/Br417rBrVyTi3Ip0ifr/Prr4d6sh+ h2v8i7Z9f0ozpCo48lolO68lcKg37krXvjeq/nhgSQ yiRiKJ5a3R0q7tm07vO7AG8b70LLhxyhimAblf7Q9MsGvgW+ibs/hu9/BZfPdKG+pyeVrxmiMoq6ex7e 8QG0xjmT70QvH575pVHNJQ638l1+i6eB0kz+8+cWPqiSlYehVmrAGbajxBlXJFJB38BGKuOAd8Rr/9JM A9FSnEW/9jrvJpszhKCM2TnDCNQRU5KtjPJ0Xwqy0F 8/SUIIzsRZC/UC6CISVs2uFq1JxYqaFaee0RonftnRsH93ACxVm4D4MykqQ8YEqmj7Rj0CtdmRhMvVYs In+KUpsP2ldK/kqdSzz1Q7fNGsHWJMpbQAlZDuDhPlKL3kb6LGszf+V1AZze3mhEU0m80rr0m8Xme2xE d/ytWxxhpbC4agkujvJieDHkmqeCVY+FLZ5dkHoxpN HF/ld8t9e+s/suz6Nc5k8PKFO9kw4YUiCzKgVHgQG94juC188nEE/9pInpiu/+jwRHlatm4mt94cgmae ovPasV3/2RAmlVje0Ydqn1v8wKx35O4YuLEQ/JaB407muFm9034/4k/EbNdz+JsInf/fs/w5UII3 vJTXmSvSTZSyqlo/koSS/Yu8gXyw3QwI053ydJwOtE gUnb375Z/pc10P+y2r/3BBQrvgAdt4ECsWBtwSbgVyoQHcG93BJdpH9q0UlyiL49Y1azmwy0Z33J63R0 /tsssF7y6MrhBnOptwtuGhD/ps7M3qQup5RNkeMY8ayB1Aye4g50p5y/g6NNth1tVLK/NY8N6WnpU9zG wTvqEF33ByE+pRCOpjSW0hjN/i0wY2k2i29lAA/Roberto Carlos [file] ryT1mMc23z9lCtpuXZ7Iv4M/9ZzmA3CjFgKTa82a4Kt+UsnrqVnbAwY4leIAQmxu3KHnH+VR7WgSY/patiño z4HzwrF+HcZq7ZwkS//u/E/n57Oq9B7HL785UoF5sF 7TW01+o8ZUC/GtCvBvSrYRi/iP2mNh9mtr93Ft27s6tlqyAH+yvf9BhzZ6Zo6Hvips987/xIG/K++JG2 1l8jq8v7gS5Ko/AkiEf9y05048k+ieXZ8Hl+YDu9945YFUcmwyNaQqtUdbAY5uf26kr7j6dDtA6tfl57 zGGi4LNsoB+t5467E6wYtGAb3zdpIU23QG+J+yj7ls m8Do4Pm/70HlDzHx7Hq5/sw/eGz0UC5D8qNjDSj+71vF13L+8Qz/ze4jiWf6n/urZ9e9/k9KQ4Sp/t6N eMb+//G77XI/HwjYROl4wpI3m8M54hJ+a0Yr5AF/Uq/Flesu4Z+pVeZX/Qo7OabSx1DwgNKb5HaI2h6P tN/NfZApRz8tVxzis3Yp/aL+wC77C34m4A/UqhXyn0 N30InSN7C1pT+rP3JDvVptGqI+/X/qyx8CqW/rmT27XN/3F1eHgNArdL/jkK/Jem4CmXvkLT+1Y11Y9q 2hQTMy7N+F9p+l/F+/i/Efp9esniuUqhL7kyk3V4N1S5s/0hg3CyEcidHus9dvX+pdCvtJe+bh52Pe1f 6QPpA+zWkPR1UNiSinJuyZ3FVkrj3nBq7Q4zu22JZd C2s6vl9AfQa+qRLo8+yNOn7HvCD88npz9yd62F1UKk+swzGvpVPk+8P/G+4X3D+8k2J3zy99sV/qwL+8 GW3na5iOw54j17Ul5l6FdyIziO8xuQjic4H1a3zYUl93j5d/9ns4kGhiN71PEyo9Uqb6N9Gd9jYo2PbW +fla4szv+dsp7v0l6YwhTeeLa/E/MV/F438f9SE+1/ rTO2Hka203J/qxJfAZ9WwQZ20saNRq0B+F8p/K8U/lcK+5XO8q/WXghKnHPUSemp6Uw6Ig0ymYN+MsxX 7W7Mn2mllO9Be2nCMh56ypa9gX+iJ3nmdcIAM5SlRunYBbyRSwvymL2sHY/BNaf2Ts3YC53T9gurPm94 XqarzssU/lcK/Devon+1W+r8hHUZ+P0LlxXpY0yA+kL6 F43gd8TCN+yH7Xoeeg+HE3O5Qf0rgPF2Ph/Nw7WW0pbKKrvJfOjbEY17Zceq2vemnkAF127zC/vfSNif TMNmlFEgfgO1UX/8h8sf1ldv0jzC6nC70c10uS5lvpA8OsczslP74j22lwkeZb5E7wjKUlrF71Ob+Sarita 1taC/0q9lq/M5W+wLgXbrzV57lXoE05UuR/BXlTqRP pBvyMeRf+tVsC+qC8PDmouG8vmqmG2uwl/hBxfUIgvN0G83zsHZx3SB+HzXgEchJDjbLBqsac9lG9plP V1Pwf+F/NTv+b6/1aEK/mh3/F/6Od7j0ARpU0bi5TgeukmS/km1Forpa+Pz9iKu6hve97hX27CyjH70o SK/5y09qR29lO61BbY8PSelo++UrfK1Jgk03de6j1M +fo/r08gDxge0LpIaNxl783Nv7knSM3yvA/jwH+rPW+ju11t+paC/FAleDZ4bP8ccRH1WR4amhX5GA/q q5W5p46H0+I63Pz8Z8euBv9mpydVoriTmvoPp2glX/akK/mhP/F+Hamlet+kVos8z5/nRhH/7xPnghP/VnJ ifJ+Yr6FcT/h8Z43SM69HZ84WB+tWEf/x2neyV2EfF 8H+t1uaHXd+chv9rA/ng/5oiH0U+ZW+fVudHM/Sr8/czx7TXQihe6I2Ymzy2hHY/fcK/fcK/thP9qUQ9 bBU7oGE4lGQ0qW3R5BPBpGP2uxlQywevd7Wlb9Nm/G3lQ776oO/584k9bjR41WQ9Ktf09fFa1OmQS8to /9ex/dwz6t0azR+ctNhbyQ5dJ3Fqir3z70MlBb+aXv vj6YGun7t1J5n4A7jfClQs0XY29E9fv47tatW68FqZ+9BQjkr0+RPaNZCueH/4w29tcM28Dpf3c603Zr a+1bZ+1ff+0bZ+JXsfalu/TyrxyZ1fM/kj2RX+ojv/Pq2o7qK/4Kadbpvpb3IB467tnZXz6r/ekzj953 pot2pyq7FI1nihp21wKd7Cv38C3j8E3hY3p7orYt0+ /dsZcz8/hmVgVjbrr6uWHmpqM/6x1rZ/lWlh1r8vEAqc2uoopmS3vpN+tep7y0R2boE/bXvkyisgR8gF kqLnccQyTov7I2mC00DDylINbH+k1/i10K+tf8e9R5zB/8DWOehy1hlf8kcvFy/7loYU4Oa05A5un9Iw y1Zbw6Jwd4Kks5Pi/mC8r8h/Pw5ijbdK717a/eo8L6 QvpDvSyx/OOqlN49spPT374w7hRR069jeD6ft4jQ4ib+DjL9Qb6XaSQ29SPn6g5k2z1CajijzZ+Szks/ C+Uv7rgFk+Ybg/rPu9Sob+qCn+r5b+rXo2SvWaV1nlEcz7Z/Nbr60jcloy/qAp+uIgld6CW3n5nKy/sE 1Zx0Oz1qc1ljM/ian6LWB+ZdCvDPqVTfzfWeuRzdI3 bJa+YhY9FYicl5t4hRtGQ7RB9b4bJH04zK1wmunz4OytE1XUs0n9D21sSx1uAsYmi1rRFpVt/rEW+pXk s1ZZE+IEzEFaOMkshVixx5JFVq3SfdiWEgqXLs0z5XjN/hjbG0vbU0pJkPhszmt9NulIvfd8ududd5pD +aU4Bj0BnjB+qB09ef30VaLo/pk14Tbk7GzeUZ/9gn npz+xzG5m1L2t6Q6s7K0c3T9r7G8q3O5lb2reZ/UEL/ZktM7Gkz77N3w/6uuq+5LrqvuTC+eAK/Wq3ZV 3fq7IiRYnX+9XeFfpVvlPnKQv+7Qv+7Qv+7Qv+7esy5G/AlfG5Vr7Qj+nPC/cHF+4PLsRnWIjPsBCfYe H+2AJ5hFT3a0vOwNG5Ke1VwWnP/foqh7aPelCf/y7E G7za9EsY/Ml621LuhVk7uNnyFvxpaC/2ueH1Ev/mK8fobbC/V/B/PFNc2AOcgtv1nsx054qG+e+C/Wrh vBMuyXJWh04VA81X9+j4zhFqh4MDdmQnl8fvLi4iZ7m1E3ypo6CWqqUub0qfXe9Ax4xgXXcg9BLJTeCz wP64owG2r59Qp6LCr4QUdDf3rAi+rq6Iwe25e7L0xv Eoe1EZ4L4A0ZdP4PkAUBscEdRmRGSlDzfJY/arBf/2Bf/2hTg/o7W5YzPo/NsX/WaG7HdW0rlS+9XS2v 4ddo4b3yF8KedZSpOtauMD4Cz8Ttv+L/zbl+L/au1/F/SrNet+6Jq1/79yQv5k/aZcWRGz1yh22Prgp2 p0A4kuU33Ru42j2xjG4I1d4am72OW3loX+tSbai/PB ZaU/L/p0X6pZb/jF/cGF+7YUKK3uLrhJ40bB6fp3eJfth5sdepA+uHA+uAzttbI/Lyt/5KRtpvcwf7V0 bv48Voxh59Q9TfTcsNQ+sWvh/Khmer+e0e3K9uv5qkB/q2jLzCTjoqBd3Q9qVB/ZgR8GW8uoW36Aj0npYP/ [file] 6B9+/um7j59+/+0vv/786Wcf//DNl59/vEab7033/5anoT9sP4R2w55/+i+/+u6n33/4q592ceI3o/7y f0uqhQ2/h2p9+vU3r5/61BZ1T5faas0/f/mlnstLohbCwHiTE6M/vL7+aTs9rnQsXc//9c8+grNBk542 +wLa04jtp/91OgEaj6hI1Sn++Id//d2ffv/bf/n4H/ /749vvv//ballet dancer//0+b99+vRXHz98/d+/fPPxy69/9vWrhbP/019+/PEPH/bX/ern2kyYhmH/6lofX3/7Zz 7mP4O8fzc8/e//+d2Csr5J8Te46B//Uzt3bye02Pj09/2OkP8Aauw+X6//ik04GWpmf/hwIsrz154bHu N9/PxnYK/Swe75JWw+rh+UsQYh1B29/u2//aWEp1pJ ++gn57gvx/y55z32sQk0569+/dandmig+qoE/Kv0DsLrFH4s75cr9xC/0xaT9t3TBtq0TQkzMeB+/ds/ /Md//fjTb/7jt2+6x6txy9jSe8/0e/7azRa78dUIjO/mLz9//O4P//HbP/2/v/m3/pS7D0H44TUci7/8 T3I/vL///MPHv/zPV91/98c//Ir3UzHwX8nTSu/v77 /89d9/+Wf+bL8E/DFAJh92qm16sjtOLSi/iihrpo73KB/y1eK0X2a/rtXh/fInn3/y5eM3/+u3//7ng+ f5b1f/yd9++puf3EF+4cTPFl11e30eb/f/8O1v/u3t//ob96e/+Z///Jt//91v/vCj74+k5/bgO038/e H2Mf/tf/j0s91FD//xj7//kd7U1l161dX5N5/856+a AH85xyJhMLx4W49++8//9x9+98+nIg43LsTh/ewfPz5/19O4B5rTuE9m//Hqd//y1U9//neAG19F4M10 u219Bdofmpc878gr+sNXXBXvhfb//Zz0vCDGa1j1l1/7w8625C9++F1y6dspNiCRSz6tt56Oo+tdu659 5auYIN/Wi+8/vybqF+X25D44uPKkj/rT73/95fwz13 vtVZnX/Hhy//6FNv7syHziqdAwaKQaLW4KME4kk4KcDxX5DXFqq2NbXWinUZs0jTSzUTimzxQmm6Wtpz ymQ3Flx3OvBjQfPVXnCoFfTug7GYImCyJ9dRTbImBkAMHcY7IvCPAxFyG5XwIlILWESM1RALKxdxAwLu AwIFI+MeEdAR8lgonrWIWib9SeROfcZBweBRZnR6W2 zNfiXENxI4DdqF91PZPsH2TskkM2GEX9ERFeQvBuKSCwfCCxNPEtHIM+DjRsWL9zzptjGUWrx9JeLPyh MLT6wM7dQYpBMFVIEEqLEWaxTzD0h56jqvHDCNZmZHRnKK0NxgPfeQhdekZfgDCaISE1KlVoZYL0FwHy UCZ6JMSWJONzGJQuSYAzFFYeP7FgzZchUMaBHVTZGS sSFBxjGxCro9V0DCNrugZOFOjQPWxlRAQKUXIQPIL5LLX3LOzzVU0FnNAuRLD1ARiOZFOXBGpXDDufVh Efr9R6ONFcN2MbLJShvsArOFGVHDvdPwbaHK9ikTakzuylP9KfsKLnXZXCGRDpTHLoRGPfLSPuY9Ehk7 B5Y8SbETtJVMJMTQsCZPqkUvO7u57ncaLDGDIbPCDn ID4+VI3gc1HcEp3CLXMjMD7nvyc9OO6IyQXgCJ3DWOrnbwKlT2bcgcAaWsWdXCJMUR3pP3XxoH16FJY+ XwFyNQ8aszu6bxUtWhFiZMFiWCYpIPCxHRqlIYSbXEPzWHGaXHR7GUI9XGYgBsFzPFIgYmboMRSsAZYq WJTqpdBQZHYbUCZ0EPa9QwSuJTLqYVYhQQjvSIPxDU P7YKSgFXDaFAYfGW0bIfGbMJRxKJUpLAVuOmA4BqMkCxJEHHPmXICjJJWmWmYiDHZtJNOeVDtjYMNxKS JcZOj4MYWqYGOeGA8iOcXuVTPxVTHkNVWoDWFvQSDakyIVOHBjNGTeHNN8GXDtJIHiPMAqNYvwLIBtRK XjLAT1EQTdUOTwJZ7tDgWgJFEnEXK6XvMwSDGaWJAq dbCVDEVzJBVlUUR2DKGfMKJhJQKsBKgtXCWzXYNdHcX1CTXnXJMdHU3fDsWsHHFbTEM0QFHgFPMvOOKg haXYKVKoVLVgBKf0LwLcMCKkLFOcVWjvUNLvXPIzYSwjBASeOXGlZG2gZfNmGOUoNOWvOIFxDHBdESTv zsTNFQGoYXDjCEZ9HfOkEGMwRJJvDXhpLEOvZXSzOU O8ACGyKGEdKD6wRcGaRARsBqc6LmJhEIWqJOSrbnZMGABbFVGhLDNvPEHvQQLjRZZiIBbqYTOgSHFiWn E5PCIvAMYqPQ5kVlItLCWvJGB7TQQgQMWmMBBrjoNXONMkSHBhOJSsAYA6XKZsQNLpJQs4plGtbGOzJe q6Qp9KdZzbASR9Js8DeoNhNQSpXIUJUm0By445WY UgMCBSCgo+GixuuXXiyQplVSNWTcygPSENPALHI9L= ID Date Data Source [id number] 06/25/2020 11:55:26 AM EDT [facility] Name Value Range Interpretation Code Description Data Roxy rce(s) Supporting Document(s) [facility] NKDOWi6cTyWTXbQjy1JmHaGkTFIvXU6hyob7P8R6lZTcX7RguBWyz8qkA5HjS1LsZGAzEWTOOJ8KyADd jb2 [file] imaging tech/+H/+ [file] gB54BpBHeUAMNPGNSGkPAPLDjWTBDNpYXZSu9sS8Kj qUM+jtc6r2U9OWwKEoxWpSsgTuZiBtEhdxT1VNOlHSKytT8G3uIM/fRiGPxtCcMRi0LdBGU4BZbJ1J5h 43tnx/fOju+d/IGh7C2AM/2BdaM/kI/uV4pxds16mxVPRAUgBp0z0jgos6lMVRGi/fVWHP9FEOf+wLzg MaVBdYPADnDPmvTkPFuJhAX2ucgcD0DMDuOp+hIkig SjR03fOao9pD9+ulNw1Wb1oj/oC15+Patiño/xHT6pdIKdDckGSjSx+KJedbXsX5hBNaiVtAMVOOfViRvHRi CWOIqkU4Jwmx6ac1/o6Cd6+8twXIARMorPraU0yz84kaRmxpK2SD+5DUWi+BuIpfmB/AM/EEPxeu/ss+ 3/qHnfVOEd6ysyCBYfShCWdI54f2vq4ApiL80rKSWb w/7t89pXk+5jgz3b7efNKMi3/oxq8UMY/+aQ/xax8ahgi4OivlPcu2Rp/McG2gXl99mAPmP/FU+cMgI/ GYCbugeTp9k9/sRb2C3iunh0n3tZTM/9//Lm6uaW/wnx5pb/z/i1g/ehh1obXdSQTzh/N2h8Zun7mRbl 9/2wa3rsH+f/2sHUfUg/qOixm418v0tGE4dygttyld 7eeu/6aVF4Wg0W4d27sPu9GfVKT1dkd4I6UEhsBxCUUBMvHVGNLCbF2DSQNGldjyNF2oEaxbIVGvMIFF pQ8kGYkXT7Y7A4cEaQeii8YaFV06VBJzOWGh7eJHuDHfSFWIAFlONmORPPquV7GznDk78MM73Xw0W/rX ybrtPITJXs2eE6MpUo3W6xmExRbZOc799xckCeDBtu Hrrjmo30aw8szdacKXI9orhAJ+rb4VwzSGdpX8fHxOzwboCV4RC/0Ss/dAhyA0h7OpOqRWS7BupLgn2Z 2/Id7Az66H/hKSBXN/foTywtt+yIfG408N/8EOedTnx61+cQwT2250/iZGoxScIFF35EZeybhx1CU709 x/yikr8raB9lBF+q2vXPB0e8MfTNfPowl2lgfhmBeI aW/Nw64p72xIdCJrrrfiS7174rhR4Nn0Ox9Y+NQbcwO5Oy8kNxeQbkav9qKTu47JwZUZ1WNUZJKAstMB C5j+Ca5Abx2pYCs2g0FO35g2mn3/tZla/izstsm3On/cSVc+d6lL3q9/5PmAD1jlvG5cR/t2c6VSjlvX 7YWEofu4FOCqeEUJAG/bSd3HE/0f3ccD+NL/fbT7PM 6auRJFK3/bTr3Gw/zT/34x0xms90602mo/21x5qhJu6c98bY73k218wRhy44z7CNa4isteR9NPIaWBCE 5AjyioKCQ6BMF4pGK/tOjnI1I+xAAu+ZovITW/jKT+xmGdg8bTVaR7YDwyvZiO0lI2bADrVdZNspKMjR CSAHNvCaLuopXsmzWdlxQ4fZCMW5jJmaN/JUo/ITuz kVmHzJ1LZhNkbQSsFO6OO5AG6IQYWZIGxiWRPLtFRqDxc1sDiLJFrq6SSdoWklT1rVPm6IQVbnKU4YYW 7KeOiXksTIRCVeJo3LUGykPRC8VvxWJHC/YbwlS9m+54pYCjM4HnAh4FwdxEbVcuhN3u5xH5dqRMANVL AL0TIYK6IVVQST4VDZQ6VKYMAd3EBRI5BBNvg1xxNJ [file] o+WnlnsWHsjLawSWQSOyJ1YvYBLMDUV2M= ID Date Data Source [id number] 06/25/2020 09:23:53 AM EDT [facility] Name Value Range Interpretation Code Description Data Roxy rce(s) Supporting Document(s) ED Provider Note [facility] VNFTSu2oFbUFJnFx16/EDLasZALdv7EmPDiiUIv7FOtyVJBnB3DuCAS3oI7dIWZ1UCpSEaYoPeJjTaGj lbm [file] W9MmoDQpQmLP6WTDm= ID Date Data Source [id number] 06/25/2020 05:02:22 AM EDT [facility] Name Value Range Interpretation Code Description Data Roxy rce(s) Supporting Document(s) Leukocytes [#/volume] in Blood by Automated count 15.0 10*3/uL 4-10 [facility] Erythrocytes [#/volume] in Blood by Automated count 4.28 10*6/uL 4.6- 6.1 L [facility] Hemoglobin [Mass/volume] in Blood 12.7 g/dL 13.5-18 L [facility] Hematocrit [Volume Fraction] of Blood by Automated count 39.6 % 4 1-53 L [facility] Erythrocyte mean corpuscular volume [Entitic volume] by Auto mated count 92.5 fL 80-96 [facility] Erythrocyte mean corpuscular hemoglobin [Entitic mass] by Automated count 29.7 pg 27-33 [facility] Erythrocyte mean corpuscular hemoglobin concentration [Mass/volume] by [facility] 32.2 g/[facility] width [Ratio] by Automated count 15.4 % 11.5-14.5 [facility] Platelets [#/volume] in Blood by Automated count 274 10*3/uL 150-400 [facility] Differential cell count method - Blood [facility] Neutrophils/100 leukocytes in Blood by Automated count 95 % [facility] Lymphocytes/100 leukocytes in Blood by Automated count 4 % [facility] Monocytes/100 leukocytes in Blood by Automated count 1 % [facility] Eosinophils/100 leukocytes in Blood by Automated count 0 % [facility] Basophils/100 leukocytes in Blood by Automated count 0 % [facility] Neutrophils [#/volume] in Blood by Automated count 14.13 10*3/uL 1.8- 7.0 [facility] Lymphocytes [#/volume] in Blood by Automated count 0.61 10*3/uL 1.2-4 .0 L [facility] Monocytes [#/volume] in Blood by Automated count 0.17 10*3/uL 0-0.8 [facility] Eosinophils [#/volume] in Blood by Automated count 0.01 10*3/uL 0-0.5 [facility] Basophils [#/volume] in Blood by Automated count 0.04 10*3/uL 0-0.2 [facility] Nucleated erythrocytes/100 leukocytes [Ratio] in Blood by Automated count 0 /100{WBCs} 0-0 [facility] ID Date Data Source [id number] 06/25/2020 05:29:08 AM [facility] Name Value Range Interpretation Code Description Data Roxy rce(s) Supporting Document(s) Bicarbonate [Moles/volume] in Serum 32 mmol/L 22-29 [facility] Chloride [Moles/volume] in Serum or Plasma 95 mmol/L 98-107 [facility] Creatinine [Mass/volume] in Serum or Plasma 0.92 mg/dL 0.70-1.20 [facility] Glucose [Mass/volume] in Serum or Plasma 149 mg/dL 70-140 [facility] Potassium [Moles/volume] in Serum or Plasma 4.8 mmol/L 3.4-5.1 [facility] Hemolyzed Sodium [Moles/volume] in Serum or Plasma 134 mmol/L 136-145 [facility] Urea nitrogen [Mass/volume] in Serum or Plasma 15 mg/dL 8-23 [facility] Anion gap 3 in Serum or Plasma 7 mmol/L 8-15 L [facility] Osmolality of Serum or Plasma by calculation 282 mosm/kg 275-300 [facility] Creatinine/Urea nitrogen [Mass Ratio] in Serum or Plasma 16 [facility] Calcium [Mass/volume] in Serum or Plasma 8.9 mg/dL 8.8-10.2 [facility] Glomerular filtration rate/1.73 sq M pre dicted among non-blacks [Volume Rate/Area] in Serum or Plasma by Creatinine-based formula (MDRD) 89 mL/min/1.73m2 >60 [facility] Glomerular filtration rate/1.73 sq M pre dicted among blacks [Volume Rate/Area] in Serum or Plasma by Creatinine-based formula (MDRD) >60 [facility] ID Date Data Source [id number] 06/25/2020 05:29:[address] [facility] Value Range Interpretation Code Description Data Roxy rce(s) Supporting Document(s) Magnesium [Mass/volume] in Serum or Plasma 2.2 mg/dL 1.6-2.4 [facility] ID Date Data Source [id number] 06/25/2020 05:29:[address] [facility] Value Range Interpretation Code Description Data Roxy rce(s) Supporting Document(s) Phosphate [Mass/volume] in Serum or Plasma 3.8 mg/dL 2.5-4.5 [facility] ID Date Data Source [id number] 06/25/2020 11:07:[address] [facility] Value Range Interpretation Code Description Data Roxy rce(s) Supporting Document(s) Natriuretic peptide.B prohormone N-Terminal [Mass/volu me] in Serum or Plasma 104 pg/mL <125 [facility] ID Date Data Source [id number] 06/24/2020 08:36:[address] [facility] Value Range Interpretation Code Description Data Roxy rce(s) Supporting Document(s) Glucose [Mass/volume] in Capillary blood by Glucometer 190 mg/dL 70- 140 [facility] ID Date Data Source [id number] 06/24/2020 07:28:[address] [facility] Value Range Interpretation Code Description Data Roxy rce(s) Supporting Document(s) Troponin T.cardiac [Mass/volume] in Serum or Plasma <0.01 [facility] ID Date Data Source [id number] 06/24/2020 01:32:[address] [facility] Value Range Interpretation Code Description Data Roxy rce(s) Supporting Document(s) History and Physical [facility] YBOCRj3wKuOTBkQg76/YUCqmCRPhg4MmTZfvLTc8JCecSNKzM2XvDCN6mY5rGNN3XSrLEdVjCjLlMvM0 lbm PdJlwGGgOeTEQeEkkPBoWpZPprLnqfeZKlZX3EhCA0JAJdR03zMOPhBGImB8TrEKU6Pca+Yc9QRSGrwF RkOZ3CXztW6Jyorpy4Dk2+4q4NV3k9vd5vAA/Ch5P8QuV1mFNpwMDMX7hVInEGITuXWZk0/2p/4nr8Mn ZlcO4kQa5nE2Bs6hJ9Jn9+PscYCDF//pwJLD0ebLX/ mgswNDMtQV57C5XCqbm0pKTGMqUzXXQRrwEP2MvN9d991xBOSfGZxDL5qihgMMVSzlDwvPPHgb76q6R+ yzvSGg/zR/IM7Vz74AGJVnRFn+gF73dh3t3a5rTpvoynGHInHfoe7+NAAAyLpZfvAZPHwOxfltza7lMr dBHrvRMhxnAja61VriRmaBPwM6U9oMvdnrGxCTeZbH gOb8NNVFJirNMKr3jje1uAhd/lzPjPfJQ/zslx/oQQIeu1DpvG0PnNPHqdvHIA0koTJ7bd18LIfuH6yR sYRrB2/iLTnQXKeWhLzo1MZA1nsCokcwFk0zFv5Ctct/1XOLDxNFICox1OHq83ioiIhaaceUUtIchxk5 nDw8r05dA9owEGyz8N53mLkDdmjCMJeCBeePv4zaU7 N0dbJdNH/zxNxy1vBtmECH3WDTqDkFf8HXIx0vqEaI5BDXPp5OQcmrmznnRu+ObFFk8e6/kbpIVjjWbU BtvdFJHX2GvsA2fgx3oUvnM/FAPvJ4+Iwc+GG8sqBN2W2/OFVRpabXrr9hGcmKJg9R6ozMdzK6W8Dg6P 8+AdG6X7blerhpLF+tDvYKNwARJtDxyyzyYmSg5mFs iS9LoutFEC9UxKeGUdnFqL4Vy7AY60Lij7A/YRcccXYkl/S6dbJaAJ2gT4iA1+Ib0R/obPudAUaZPJJo oJJDx5LJTsNp0wox1UbA/60/hCyuzra11tlsztzMRU+VA4Fp/I4XoG0tMa6Nkr9veZ4FI9hLaQxuYsX4 LytYPPwjl+hmPPdhCjeEqzBVdJ/QtsdkKa/QZFejHN [file] 2J3P9s+K7Ta78TqYcspBbYtwXxfPZ5byYhl3/ae1VH4YGbEgzStExFLKF6b/[employer] 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/B8hc7rkrlxyI+JndF [file] ICAgICAgICAgICAgICAgICAgICAgICAgICAgICAgICAgICAgICAgICAgICAgICAgICAgICAgICAgICAg VNPtFD0WTIDvRTSwYQFrOKPzOTUtDVGrRRVcCFKlXD AgICAgICAgICAgICAgICAgICAgICAgICAgICAgICAgICAgICAgICAgICAgICAgICAgICAgICAgICAgIC TlAGHxZDNsYNTxDTLeDJ7KPKAaMCZuACTsJUJbIRWvRLZpHAPwVHGkOJHtGGZrJIQgZRUlDCJxZCAaTW AgICAgICAgICAgICAgICAgICAgICAgICAgICAgICAg AENfZNJyGYOwAGBdHFSnXLCzMUKxADLnVJ7SYDLnOUYyFAJjHKFqOMYxLOOmXDVgDURtMCAgKUDpIFPt ICAgICAgICAgICAgICAgICAgICAgICAgICAgICAgICAgICAgICAgICAgICAgICAgICAgICAgICAgICAg DZXlQIApMY1WLHHiXTFxJUMaDBZtELVlLAVkUAMbZI AgICAgICAgICAgICAgICAgICAgICAgICAgICAgICAgICAgICAgICAgICAgICAgICAgICAgICAgICAgIC ZyKOQqPPTrNSSjTQLjJGLhML0MOSZdUBLnWRUrVRPxYIGkWYZxASKeOATqZPYsKQItSUMcXOYuLJHhPS AgICAgICAgICAgICAgICAgICAgICAgICAgICAgICAg GXWfRSGiKHFkSEAoUPZcPJEjGNOzMZYjTWBlRY7MZZRdGALzQDYtPQEtFHItZOOqRRQhLRPeVPRuPDQn ICAgICAgICAgICAgICAgICAgICAgICAgICAgICAgICAgICAgICAgICAgICAgICAgICAgICAgICAgICAg EHDbUAVnKLYvBO7QLBZpLEWpKWSzKCGuCCJkBIToKA AgICAgICAgICAgICAgICAgICAgICAgICAgICAgICAgICAgICAgICAgICAgICAgICAgICAgICAgICAgIC RgIMAfVCQdSHMtXJTuLFNzWYRaJZ8VCGLvFTRkMTPtKXMtEWRlIVUwWKTvIAVwEHAyNJKxLUZoPCWePN AgICAgICAgICAgICAgICAgICAgICAgICAgICAgICAg SVLcCJHnWQAhXIJiXTFsUQQcNQUyLZYkYYIqUWQgEY3PZVXzJSTtOECxZDOvMFQjORDeLVEzQXZsYVAu ICAgICAgICAgICAgICAgICAgICAgICAgICAgICAgICAgICAgICAgICAgICAgICAgICAgICAgICAgICAg UUSuFYFtMPBbNBXuYP2CAE27fLTix6P1HTGzFU5zvo c/Mj4HVIqkztIqnNWqZY9KRnCrEV1vyk6HLiKkRQ7dwb6VWOoMJdAnI7R0iNZaUAAuESDIYlGsY96mHG drGv34VAbiCWCoHnIqWDb1Rb7ABaKqN4noXPDwAjX6AWElJvH9QOGwYyX0XMNpBvUfVSTfAYXmCIKuUL QNEOH7OKBlNbTqYqKkRPLsUI4MXSYgP819twSeRq0F Vo6TDwHdBT8rji8CJCKqWBPdRbiAWpd1ZNasJL5XfDEurPJ9FIIoUWTWWbPeY0ces2TlJASiSBQTIQhd IY3Gp4BzuCZwDCl+Fm8ERY1zy2DhQFz4ZIDoIY4pdw2SXSeWMgTmH3KtqIduCLmjBFBeqYWPAS2hGKba MJRGr8EdSK4ePC7JTLF9DOlxWuunDuRaQKPnLLpvIS ODKVhOKdYpM5Pve9DfYcC9WUDvLdYoUKakZGOvMeQ9PL30rGdkSD5DDRZpFLKjYD84OAX1PRQpKu6ZXz 2IJlVvEC3ixt0YPACuHMXbFvsENpl3BUryWT7FqQVlM0TwfXSpd8wACsUxE9KZTVPtTVVdVs6YPFJbMs VaZXAdSTklIM1nARYkCTERuMfaziD3DX8VBZ3pywQx DQ6ZMjFqPo4dQc3FArXmG0AcN3JwFJMmUPECGPdtDF8MFJmdKE4hYP3Bw6GQpKKsoJ5fys0QFTRgJHXj Jcrzkm5OCqrpY3G0mLygBXLhMZYnOIHYOYdpVT9CLCIaPUX3RTB2JjItSPLACsDiB22gBV4WM1Qpl04d OsH8YRFiInKyVIfoBW46bIyuldRxpHYqqBqpBN8GKq 4+RPkiepRpPpwNZebjOBPNEwGhTCuLFxWmWNBtGTSgLINqVeL5YgOlCo2PZOVpZYKpDAEvCkEwCRTkFX XxOXtvCCGhFNFbNSp2MRLlWHUoXR0KVaFxPCXlPMJ1QVtdGZPdQBZnez9DECLeDLLkLVO4TsBgZYLeZD JoPHyhMRUzZBMmJsU6ESNnMSHfSE9FUbIwVHEvESR5 QmyyHSYxPIHysa2LADDlAZMbAvXuNPEdCADaDLToGXnsBHCrEBO3JjZbDUTfDVZfVZ7JGxWeJFCwZGT0 DjGuYPVlWNZafy8MSCGlZYOkEIdfRcKaKITeRSKjPJtkPPUtHRW0AJSaLMBeRAMjKJ6BRlIrWXVnMUHq WAllMAYbPVHsof1LXZLdYMYqDeguBFNgRRRhUDUqHP giXBFdAUD5BDV0WSScBHRmKW8JTrAxVGVqBnX6GVLbBMUvLYWujt3RFKAwLTVqYNjgNOVvNWAaICHvBU nhWKCrRFRjMRQ9SOPeTZXuQF4PCdKiDEIqGcWrJFYzQAQgRLHejl4XQAQvNDErVdU8JRYiABVyPRXiIA obYCLlKLYxVZH6YCFtIAEbBT6RNpKsSBZyHeO9NQOd MKFfQOZsmz2VYESbXBMlSFNiCDIzMLQnPGSqGVknITVcTUB8IJAxRJGoCCUhMG1DEaBmNDIsClX4CQpg FGPhFRCtsg1UFWIsLYAjVJt2IMObJFEkBMGgDVifEOBgAQH6TRY8EKZhXJCxCB2URaTySMIyUvMoLqqx GINcDHBcfk9JBULrLZNnGuR3NEDyINCiMEAnQYgfFG DwQMG3ZBEbVVIwVDObLV8UZtBmBUGdEyj8VRkbUWRcEEUdhn7PQAEyBXOaDNV5OxJbDTOcRRFpCNavQQ BuKWK4PxwiTBHoRCWlMT8YKuUoCTDuGkp3RGUiCUUgLSZjvh2KUCAoSOYyKDqwFOTqVHMlDYGePAzaPV EwPRQ7BNv7GXKsWDXqFO9DWcRvWEKaWZM6YqjsWSEo MJZuaa5WURTgPEY3YRXpRcFiQIIcBOTwEJjfMZApLAJmPpp2GXAaVAIfUO3EJuNrCDVkWWX9ARsmJPWs DILkxi2TEGPhUYZ9OkHzKTOuRSZfEVOzZOcqGOMbELlnAOb0LMLsPGYcMJ8NHeTwOQWdKMQ6QWEhZDDn WFVbsy7DWKXqCXM3KkY1QGNaPCOpRCFdLTjdRZTrSW E0HTB1NLIoLTHaFP1TRtNgCGSqBAH3ZTheZBArVGSpwj0YWLPdQUK5WXP5ApEtIJVqEIPwJYt8tqDbiS DyENl9TK1ZW7PvkyCuGDfTMt2Uk284LGD2PTLbVg8GV7wfAs4vNMRkMXGTZi1VCAl5ZKDfHWZ8EmCdVI N3KfFtAcT6KUOkRJQ4JvHwW4DsWRO+IDxkNmZhZjUz PNMzYHSfXRBkYDj6OtD5UUOzRVN7SeE5MS5jOWVRRg2+XHspgHVbcHknFBHTApY5SDEcDZ4FFRZMA9RA Cg== ID Date Data Source [id number] 06/24/2020 01:40:11 PM EDT [facility] Name Value Range Interpretation Code Description Data Roxy rce(s) Supporting Document(s) Troponin T.cardiac [Mass/volume] in Serum or Plasma <0.01 [facility] ID Date Data Source [id number] 06/24/2020 03:14:58 PM EDT [facility] Service Cmnt XXX-Imp : NoneMicroorganism XXX Cult : Polymerase chain reaction assay was NEGATIVE for both methicillin-resistant Staphylococcus aureus (MRSA) and methicillin-susceptible Staphylococcus aureus (MSSA) Name Value Range Interpretation Code Description Data Roxy rce(s) Supporting Document(s) ID Date Data Source [id number] 06/24/2020 10:29:30 AM [facility] Name Value Range Interpretation Code Description Data Roxy rce(s) Supporting Document(s) pH of Venous blood 7.31 7.36-7.[address] [facility] Carbon dioxide [Partial pressure] in Venous blood 82 mmHg 40-45 [facility] Oxygen [Partial pressure] in Venous blood 36 mmHg [facility] Base excess standard in Venous blood by calculation 11 mmol/L [facility] Oxygen saturation Calculated from oxygen partial pressure in Venous blood 59 % 60-85 L [facility] Lactate [Moles/volume] in Venous blood 0.8 mmol/L 0.5-2.2 [facility] Bicarbonate [Moles/volume] in Venous blood 44 mmol/L [facility] ID Date Data Source [id number] 06/24/2020 08:30:09 AM [facility] XR CHEST FRONTAL ONLY [id number] RESULTI nterpreted by:YAZAN Earlyhesjorge single viewINDICATION: Chest pain.FINDINGS: A single 45 degrees upright frontal view of the chest is submitted and is compared with an examination dated March 17, 2017.Lung volumes are top normal. Cardiac silhouette appears enlarged. The trachea appears patent. The mainstem bronchi are not well displayed.Patchy and linear densities are noted in the left retrocardiac area. Findings are compatible with subsegmental atelectasis or scarring. The patchy areas may represent additional areas of atelectasis or may represent early pneumonia. There is no objective evidence of pulmonary edema.There is no definite evidence of pleural effusion or pneumothorax.This document has been electronically signed by Aly Argueta MD on 06/24/2020 8:27 AM Name Value Range Interpretation Code Description Data Roxy rce(s) Supporting Document(s) ID Date Data Source [id number] 06/24/2020 10:19:30 AM [facility] Cmnt XXX-Imp : NoneMicroorganism XXX Cult : 2019 nCoV Real-Time RT-PCR: NOT DETECTEDTest performed using [employer] Respiratory Panel. This test is only for use under Food and Drug Administration's Emergency Use Authorization.Additional information is available on the following FDA websites for health care providers and patients. https://www.fda.gov/media/676984/download , https://www.fda.gov/[place] ab[place]/399551/downloadPolymerase chain reaction is NEGATIVE for Influenza A H1, H3 and 2009 H1 viruses, Influenza B virus, Respiratory syncytial virus, Human metapneumovirus, Parainfluenza virus 1,2,3 and 4, Adenovirus, Rhinovirus/ Enterovirus, Coronavirus HKU1, NL63, OC43 and 229E, Bordetella pertussis, B. parapertussis, Mycoplasma pneumoniae and Chlamydia pneumoniae. Name Value Range Interpretation Code Description Data Roxy rce(s) Supporting Document(s) ID Date Data Source [id number] [facility]ism XXX Cult : 2019 nCoV Real-Time RT-PCR: NOT DETECTEDTest performed using [employer] Respiratory Panel. This test is only for use under Food and Drug Administration's Emergency Use Authorization.Additional information is available on the following FDA websites for health care providers and patients. https://www.fda.gov/media/617450/download , https://www.fda.gov/nv abel/527642/downloadPolymerase chain reaction is NEGATIVE for Influenza A H1, H3 and 2009 H1 viruses, Influenza B virus, Respiratory syncytial virus, Human metapneumovirus, Parainfluenza virus 1,2,3 and 4, Adenovirus, Rhinovirus/ Enterovirus, Coronavirus HKU1, NL63, OC43 and 229E, Bordetella pertussis, B. parapertussis, Mycoplasma pneumoniae and Chlamydia pneumoniae. Name Value Range Interpretation Code Description Data Roxy rce(s) Supporting Document(s) Microorganism identified in Unspecified specimen by [facility] This lab was ordered by [facility] and reported by [facility]. ID Date Data Source [id number] 06/24/2020 08:21:00 AM EDT [facility] Name Value Range Interpretation Code Description Data Roxy rce(s) Supporting Document(s) [facility] QMHUYk9wPiHFLsFax4NsGpFoSKJsPT7qjyg5Q1S2vBYgT3GgsWNit9unN6LpZ7QvIJPgZPPTJH1DcPPr jb2 [file] Lhlv85HPlbpUKx7xzpNl488IE4o5007/1v8Piti0y1 rvDJ8s0+P5Tr7R8/wy4iSUC7wagNzualMguD8+17wmzy+wepZc0l1CYwi/P8zr6ri26GIiS/PYGIk7oS QuHqTra9vS9tqY1Zc3HhA7vXkYOGhJ4mGRv3TnSxq4CtnY+pi/dFS7QzX3Gj//pf6k95ehXzEr+ynOsA wP0bwBSVayhBG/L9cEBNvWt1Co4MrToklKyOXYzkAb +ox9K7Yi+A4g3CgdUeIg5R0Ci2WHFcm04EzoEIN9gWN6aHyHVvGlS8be22A2Ufag7lntlBLhzgycgI+q zbcxkK/EH17G1QjlN++WynffOhposX711Mi94cf5EGQPsgefQkkBEY1qV6p+19G4Xpj+6Gl1vx78O3au bQ6R10YWEbV9kpujj4bQR/qirXTns9UWY/H9ZOeAhl 4PNPl+GC92Igopj56g6gXLgebi6YTPyMPonM/tiHQPq6xGg6q56VqkQatxjy4F93dX2zFmVZrBWzRifv gx548y67fL/Y19FouuMWiDXSjLWF7bI7QEIr8xrgc10OV6bF+DH88Yrb1PYbinNIm3g/OgnLS66uQmlP oPrr1gEy/E4zZIahxcX0o014oTGY+u70tK0vfBnYV4 aimr2sTlalP370IJPlLW+T09CANmuqqjdfAzm0d1gl/zx5WwOVadcbT/m/Kx6RgwlEGfv2YNOo72tpos /O0Be14i8ksK3StFJuy+N8+7qhwEAR7MpUeTmNoFKxdsACbqSKvrLnsDxNtN5eFP44qG5Exo7NbrtZz1 HN76bbqv3m4oc/tGgnZhhi8gJ+5fjgUj8Nsnyhb84+ gdyVHv4RYAq6tKro69xe3Kewnc5vrt7k5bzt/kQBrhwcTeQtRbmIG94AyCaBuugVnfuQnglW6tmPy9r0 o2x7d0v5otLUL67rWJN1p5KbjeQ3eyO9HOthbTSgXRQ9idpDbP+QfQM8tSgOunjNbFYhkyzQxs8yv087 K+a5www0XrdDVA/sU69V+Schmitz/3dwwdx85Nq7It5KC1p A7Ev/N7pvwbT8EwaBvgi8Eb5D0g9k9JzB4wvi9WipQwU3iU7Ylm0b5A2M6eUcuiVcn4azw9fvolw1px+ up9t28zu/f43kCkNoaim+ra/6Atgmv99nOg9do/rSN/1S96p2pZ06gF/4SiXsjd+1970d+5Vt1cm4Rim Kr7x9eXz9rN3VgL5RtN0tEbekJZ+T5vx/yebrI9f+r v2xu/xZ29olm6QNJ1ts+L2AkpmfDNLUgHkio520va1qm/zqSwenVdChNDExk9OAlgEP/F4et8n55m25O KPXlxocSo14mD30dhcWRAxnthg3vOheZTgxWwUlKXSobu6kT0K5cI2WN8MGQe95jG23rJNl940t1vjsS 9u6g14c+/nzDUWeVDQy0oB7pf9LU/ua2i1a9X+m+UW 48ej7h5ta/qEZ0ri6nG3jTI++8FabEc7bhgAShtsmV79hy9QKe7K8Qtkarig7+E1VL47BeHmJSc4koPw IYx1It3O74bCvA49p0vBuU5/fMjMN9Gl+luis alberto/a092k+HT4+N3A7jm1gZ11Pi213M+ajyU43971U27pls [file] gwzBU5n3p0ycac/AY8RcsOQ/4q+q91/kjo79lMh+sC8pbrlprLknKfyL50UK/+patiño/LXev+24O/patiño+Olegario r+21N+NeL7Tm/o2zR5x99F/iq/Bfnjvh/19AvfSFek V4UU7SP8gHf3GuwA0Vd3YRqZ/FWH/TaSxiRDsJf8ZVaBFz5yzrl31g0vp4/W56eq88V0/K5ip6iwrM3N x3wO/pn1S46okqZ+eMZA3iiOl4JI/TGE8alL6Qfsc+oxI99wjlY7R04bqrimFgYrAflKY/rEJRpy06D+ J3CcY03cG9LbR80dtl80ZzpO5Z/0PggpVU6ln24c96 07eA2mc/z5uS/MZ+evLon0+74fupBuvfJijqZ/+30/9TznXkvLsOYTShwejputPVtBWCfxeu523rgest Df09Pz+07Pdm/5hmb/b/mGZj9v+qpn90QfjUhcR2sUjN1f1qtFWEptCXDUp1kvf5y58tciYXbcQz3pmr YTZ2AOGG2ehpzvctDk1URs5VcFo5QWq2s3cA44IxLV +nyBT8cVsej8lP+Xb+yop+SgyRq7hc+Sb/Rd8sm+Z17qM37buEi+a/BXGnlqPuslSK/1q1fdj/TqSK/9 Wa/an/NifWyt23jNAz/bcxLlhr1L/Nxil0M5Z/XvarfV+ekf6erE18QD+9V1Qnxsan4/2ur+n59EH99E tLR0SbO9yJ5WPsnQlhdaKj+F7pUoedU2sLufChj+Q4 O/at9ZuE2a9LtB+MMF3n0iDpKf8txQe/REejkRg2C1sO8eJtWdHdQnwBW0epN6jq4oy0Rh/YL3naduo5 bZW4zudU/53Io81d14YWdL1jUhM+8Uh6o3a20CyTV2AhJD/Ep7yZ+11/3Wsw64dhpHH92uyyzr/FWsne JdYh8bJ8xlE0tEG/grVYw3+Ppiv0Mi2NoHipi9d3/K EEp9j2c8n73e7Hv1FrG6C0otJ9SUGF+bMgUMuqtGtsT8I98cy5n6/9Xgr/LbkN+IceQ3PF1knlu2TkgH 9/343kiv+6COug/qqPuvBn+18xvpGG/mC2o07wpp/FV8Y3+G/Yvcy9OsCtpv/UhHvR/lRR1SG81i40jX v5C/5HUK/wjlsif2LtjaMD6CD4GqJTxPo1GeyzZ1u/ HS0Mdr2MSbgQlSCh+/laoDsGKc9Hmaqxa65bgS/RjvxHjjfTBoFfKr/MZ5tLB+P16bcjYbGD3d2U0Ict +B77bV6dPnW60YnIO+vm4Qq3U6T+NdC+ny4zV0SYy+3439Ge+SdvcT2Wms1rn74/fd+R074Y833Lybv1 52uqeWYy1mTr4aoH87be5cqt7b8/2Ex19Amaq35cr2 bFfdF+yq+7JrunL2W6sEmc9Dg+0YCw6HVhI+eu+2q+azBX+V3/X72jVR/0L9C/Vv1L+r/388EGf1E8ZH 90FrGG/CvLegnyvyqDdB1uQihA770Y3DS5HxML1IdupkQ2qdLa5PRnE+skR9KpgRumO9jcTkPMPnhqp2 E/y+wh6DDpGb6uLpsgIEvbZH68/kkzQx5WWwam2z+C sL/uraGIpodt6W+lcW/JWvIwv+NtLFj0j6hzqn+3aMF/gG7Kqam21f+9YN9WA+94F2S1/OkxmsrKUE0o XcEKO+7/yH9T60FEz+Tt9lf5g2ry+p73ZVtVuID45SQnysT73LbnGUQrKz/qeO23ILSlpoBF+yy4WdaL 9QT+3Pphvpu+gJ/SuzC+mlb2ZW+ywaBI6U450U2r/w V1lWq5/JD8Nw1UaM3zP7m4iQydWR8XW58b1CHWF5efdr1ycMTiCny0A2CLtVMC+O6xSPyIFiVK6PQ7An GyWvM/BXNup+USN0Supbx4sN6Ko/lTQZE/2s+6AN7M/ng8kJmMJxcznyk75Crb1iijdXZyQ85e5G+oRu G0HzV0s6H4jFI6zAzMT9eleKqVJXj0x7Hre6A2+VOi oyVUIQnqiOK81623O9aGMSPkgtk0fNPNZ9qiqRXjr9w0pll9QpN31uNi72lmymry4FH04Z6W5dwx4pFl 31VUakd+WhlA0wW9tpnRGfU/XpC99JpPpaI130vvpB6/mrq0Xf/Qh5GE64t+buyKUsHBIfeY0xsfWPzL xXq/RFbZe+iC6ysealcJF5tmbiJztIJ/7qfCO/oh7s V9uQv/hm38iRY+v6Yz9reahe/k8x43YfdTqegliN8FwS1slV+tB0lf5z1NojD7mvL+RXA/BeWw5tPMt9 xV+Nq+Vm6ch6wHMRaX/jl8uooh3T/tf+FX6Q128V+8AIqgIJL17UnT7RC/3n0Ur/sdFpc3ilV+cb9WC8 3S9grmLwft6SZ0U/hOtRBT2vLI/oz0Z+/G9T8yq2Qi 7QAkXF2/uZ/5LxuilD62iPH5eiq0VL3WgyPtOg5e/UM5Be+g2AOgxfwW+iDxSEVWGc7km3iBbss3JS+9 EI/uqK79J/Bn6oxc6glR89prOmBL/zdwR/8lEf3vx1oDJ/cMPY680l3uwQ4ScPeTC63fkT9242nQ93nE 5/S08Tj3h4/xPJIdjKK89f0TjU85g4zy75dGUoRNp/ nlgJeyEsGbT73+RJ4RwAk1g7V/vhEzMcrLlSydPmIgu4MNWpNY/yUgr46MEX2JkYOgQ/X/iufjp/Fef4 pZ0MBPGP3mo3O/CtRqtMEZ7y37vzY+qqsvb33gKa0GUcrj0rkGT2G+N1/fp3db5AdacU2IFdOSakW3Zn Zjqv5wk4/ed8U0EGtXA9BRjdXH4d/TtbTk0cyBnb78 pleMdNx9p4J/RgdGLUztJiaO7aEzlF+ldjDuQfSMfvO/F0syN6oPDG25l1SBOb736tskY4/hm5TqSaZl 0urN+H3nahfxA+OVQ00CNVOeFb6jyEF+qp++9YE/aPW8St6k6ZsmA76DbNGd441RN3a75D5aXq+rFj1/ vC2PV+UBpOY6fg+5UHrjFXloJ77gyvF/AY333gjnvY pqp8K7311I60Xi1aGr58c8FCllcoG+bVkF+JRfgT8ih5rUf5vWz50lzlQp+g7eg53i84t8h/86r5PK+a z/ZiTX3JZ8qkJN/4JDhZ26toaJhChqYWcM7t8O9w3Z04T4t+drd4Mm5B+mazGdLrfX+2+m7u9Z0g2C5g b3udxS01O6xcR5b1W0oiK4vFu9+wH5xS/NAKUL/eAUQX pH/prPM/AdS798TKy0xsy3j4lN+p1S+aKx5AeIZiI/Tpky610k/pol3L4qf+rFda086haQ9fk2q+1Xsw vyd+UwHAxiM5SG2Jf2xqvF9y9Fm5aanYkkflef9JLwWy95dezKw6G+W87K77uA13aN+vg97h3hU+dbkV 78xgR/NZO/iu/xb4aiI5c+kb/2uze0bhRmA/grlzlM 485QL1Z1m1WiRkn/FfY1E/aKCD2rLLs9iAgTsOv/VDrwugMAVWSW2i+7rAjxM4iFQq/+CgAq0Xj2YzxK n4KpRqXr/P3Pld/v71u+3Ulu5MCWHrA+rcou1O/0XE509sJ4BFagmwoHihlt3ymfb8i1enKB8eVcaLbj Mm/+KuUh8+qbWf4o8iiV8eHE0U/9k+n81ZX1+33BZR TT+btATzyM63GP71SG/iB4mk2hzvf7Va/lfI970a86Lx25IxiWK/ayrC10f2+cE/A22AfuB/u39nc7Q0 MyNxMpKzGLcshMH8GfQf3H77Tkk5+cR+CvJvirGfrtsaZSvz2/ar7K7qPy+b2b5W9sfc38eZlhfJlGjz Xr/NUpi/U7OeEr4rWruoQdoUy8v4Dg3Aebqo+7674w K0h5Pr3gDDd9D7p4B1GO9Rg5E1wB8+f/xtNgH9Jk8re5q6SowrIH9Kr4p/NX0e5y/yx0tfE7qs7/7eyB 9qQyY8TL+/U3dlgx3wxg34Uhzd4nnuEHG/sYyqB7rR1lA8uCKJu7ewsC/mxwjS4lY7blmNpxviY5mPnx 2qdeq6w+PmofzxBO1D09k5glE/kN+a5k6pfW6df8r7 DDu5y/HmoV7b97ao4Ok4r4cTl8RjwA66vR0peZqzR9vTW2Kr+P93xX/c5fPd/Fu9icPAbs+3h9D1/OXz 3fyD+L01k92hav/9O7Pk6El/H2q+mRPc2I4BaOW+ev8vdy/ev480fxzVVD79rc/q8f25v1Cd+r1/pdfS D/DL4F3FB4fcNTtIumyhsYH+vN3f5CkLsmNrcGI93m Wtda+/JE7v3S8buXy2R/SX4dIiVKtGoG2zh5mmteJO56qJfqVTqOV3Mhj26W+/My7FeG/gcwIXpQ5Eg1 KvNgvIbf1/L18tM0ZGp+Y4wdA5DheRagByvw1eFzO/NlmK8hmek7tEc+34Hfd+O0RJfmMOOe/MaC/Amy 7M+h2TOl2D5hcMq4T/nx+0J+sSvZb7e7iDqONWDjpG /KrBpGecJmRSYie0a8gNbGQcnNl7ztvD/zeWI+g7i2gNdD+Tzx+4K/NtEvUhePeuEvaYN8Au+1Fubzwn yG/eBaOI+Cv+x9Zox40Zzlfk6qb8ZlvO9E/FXsmQvnUfBXsR+uspdcq+et29fP16H+rwvf1X/iN2jg21 66sApeI35b17+5C34mbxcv9y35vodV7DIQcG0KT+mr jA21kOZb8MoqNKqvVxratZ60/X2V/uS+CoQToL1yQl++L0F+Fg5M4S68jt/2Zq6ILq+D5/uZ5/uq+8KG /EwQwxKne8rMGy8D0L+kF/+6M5vw3EIkkzzwFaQp/C55+47pX1zkT0gIUzdtKn7aIc/aKb+W02N1zH/u NpE+UQ/GG/Kr7P9G/2u/0tOd5HF6m6PhzEUvOsXWZ/ iyV0hvgw/O8iDt99vLa0PvkKg42LgvS+cG7bMc8vZtRK2dcs4XYhW8/xr3xK43e3N1FIFyy+X5YT+4nb +6RqTf9/3ws71v/cwO8ub139lUvXbU5ma/rsZTNYwHV928oeA747x+dHow7CQQp2/+6vZ+Hd/I7/INfx UysWKs1BxR/StAmyux43MD8m3cP00P7l0+Pvpe6E01 /Q1/N9zq+hsxlpu/Bh6ZyV5wtUP2JEwFnOX/tJ2/SlppvIdG/dSx3Nhs+bt4h8yzqkWkDzN+Ib/aWvfB fzhUenGBph75nRdrz3cie14A21Ti53IkZ+uA78Fhz3D/irkX/FV+K+xJ7OO360t3O53fDmz1j2f/Uc9E /wruL8Wf7NSLF4U/Au2Nx7fz3c/ss8370ny/2qPO3z 3b8hJlRuxwumM5cK7S5s+8D2p+P+f4HnU/2vE+GHMy+SlcyJPlwh586dh7C59M2hl+ck/1rsZulx98S/ Kr/KbrN86L/fjrJhBsIT4vaFR1Fr5xtXYxq1/Ir6Kfq+6DO/yq5EUNfvuj9c/dk5546Sh9a59uSr/Yn4 O/patiño+Sb+oM24J6DH5W4wQ0in98NN9omX+k4/cN/iq+ [file] MDAwMDAyOTggMDAwMDAgbiAKMDAwMDAwMDQwOSAwMD KlFBCpHLvcZNYqVVEaQBMcLLEiPFTsMV7dWfGxKWRvKQH3GVCmUAJvRWHijoMZWXYfWEAqKUu8IPRcFZ UkRMPjWIblVJMqRQOfHKQ3RXDeGPCvHW2hLvSjANCyHYB5XoGlUHOoSVFaqiKEVAHfFEDcNKI4RlOvSV VtWSUoLIkzKVAuYTWkFAthLKYkZWKmHO4wCvYpFGEp VADpRGewPFXcOLJqoqUAAWTkPSYcYJEiEaXxOXQpZVPnMHbvHTJpZCdwAxU4AYPhOKZiGL5gQtRdBDJc VAB8EQxnBRMjQXMrqgYCCUExGCGbVOnmVRQiBAFmKHRbPGqoZIBtYBOkKKT5UKCdBEXxOI5uIsVgZBHl QNKrYMIfPfT8WsLqPkPKiMXldTyehfw9WWveZ2x1TF GfIUqwUQ5glrAxMEBuXrkkNl3hdKR8EQZfZcmRKq0Om1WiwzO1hoGkSxnxPBV3KuVpVV6Z ID Date Data Source [id number] [facility]2020 [facility]28[facility] Value Range Interpretation Code Description Data Roxy rce(s) Supporting Document(s) Troponin I.cardiac [Mass/volume] in Blood 0.00 ng/mL 0.00-0.08 [facility] ID Date Data Source [id number] 06/24/2020 08:20:34 AM [facility] Name Value Range Interpretation Code Description Data Roxy rce(s) Supporting Document(s) pH of Venous blood 7.30 7.36-7.[address] [facility] Carbon dioxide [Partial pressure] in Venous blood 80 mmHg 40-45 HH [facility] Oxygen [Partial pressure] in Venous blood 28 mmHg [facility] Base excess standard in Venous blood by calculation 9 mmol/L [facility] Oxygen saturation Calculated from oxygen partial pressure in Venous blood 43 % 60-85 L [facility] Lactate [Moles/volume] in Venous blood 0.9 mmol/L 0.5-2.2 [facility] Bicarbonate [Moles/volume] in Venous blood 42 mmol/L [facility] ID Date Data Source [id number] 06/24/2020 08:28:40 AM [facility] Name Value Range Interpretation Code Description Data Roxy rce(s) Supporting Document(s) Sodium [Moles/volume] in Blood 137 mmol/L 136-145 [facility] Potassium [Moles/volume] in Blood 4.1 mmol/L 3.4-5.1 [facility] Chloride [Moles/volume] in Blood 91 mmol/L 98-107 L [facility] Carbon dioxide, total [Moles/volume] in Blood 36 mmol/L 22-29 H [facility] Calcium.ionized [Moles/volume] in Blood 1.17 mmol/L 1.13-1.32 [facility] Glucose [Mass/volume] in Blood 114 mg/dL 70-140 [facility] Urea nitrogen [Mass/volume] in Blood 15 mg/dL 8-23 [facility] Creatinine [Mass/volume] in Blood 1.0 mg/dL 0.70-1.20 [facility] Hematocrit [Volume Fraction] of Blood 45 % 41-53 [facility] Hemoglobin [Mass/volume] in Blood by calculation 15.3 g/dL 13.5-18.0 [facility] ID Date Data Source [id number] 06/24/2020 12:34:52 PM [facility] Name Value Range Interpretation Code Description Data Roxy rce(s) Supporting Document(s) Hepatitis C virus Ab [Presence] in Serum or Plasma by Immuno assay Non Reactive [facility] No serological evidence of active infect ion. If recent exposure is suspected, test for HCV RNA. ID Date Data Source [id number] 06/24/2020 12:06:[address] [facility] Value Range Interpretation Code Description Data Roxy rce(s) Supporting Document(s) Hemoglobin A1c/Hemoglobin.total in Blood by HPLC 6.2 % 4.0-6.0 H [facility] (NOTE)<5.7% Average risk of diabetes (ADA)5.7-6.4% Increased risk of diabetes(ADA)>/= 6.5% Diagnostic for diabetes(ADA) Glucose mean value [Mass/volume] in Blood Estimated fr om glycated hemoglobin 131 mg/dL <126 H [facility] ID Date Data Source [id number] 06/24/2020 08:32:45 AM [facility] Name Value Range Interpretation Code Description Data Roxy rce(s) Supporting Document(s) Leukocytes [#/volume] in Blood by Automated count 10.0 10*3/uL 4-10 [facility] Erythrocytes [#/volume] in Blood by Automated count 4.40 10*6/uL 4.6- 6.1 L [facility] Hemoglobin [Mass/volume] in Blood 12.9 g/dL 13.5-18 L [facility] Hematocrit [Volume Fraction] of Blood by Automated count 40.6 % 4 1-53 L [facility] Erythrocyte mean corpuscular volume [Entitic volume] by Auto mated count 92.2 fL 80-96 [facility] Erythrocyte mean corpuscular hemoglobin [Entitic mass] by Automated count 29.4 pg 27-33 [facility] Erythrocyte mean corpuscular hemoglobin concentration [Mass/volume] by Automated count 31.9 g/dL 32.0-[facility]0 [facility] distribution width [Ratio] by Automated count 15.6 % 11.5-14.5 H [facility] Platelets [#/volume] in Blood by Automated count 271 10*3/uL 150-400 [facility] Differential cell count method - Blood [facility] Neutrophils/100 leukocytes in Blood by Automated count 78 % [facility] Lymphocytes/100 leukocytes in Blood by Automated count 12 % [facility] Monocytes/100 leukocytes in Blood by Automated count 7 % [facility] Eosinophils/100 leukocytes in Blood by Automated count 2 % [facility] Basophils/100 leukocytes in Blood by Automated count 1 % [facility] Neutrophils [#/volume] in Blood by Automated count 7.82 10*3/uL 1.8-7 .0 H [facility] Lymphocytes [#/volume] in Blood by Automated count 1.15 10*3/uL 1.2-4 .0 L [facility] Monocytes [#/volume] in Blood by Automated count 0.71 10*3/uL 0-0.8 [facility] Eosinophils [#/volume] in Blood by Automated count 0.23 10*3/uL 0-0.5 [facility] Basophils [#/volume] in Blood by Automated count 0.12 10*3/uL 0-0.2 [facility] Nucleated erythrocytes/100 leukocytes [Ratio] in Blood by Automated count 0 /100{WBCs} 0-0 [facility] ID Date Data Source [id number] 06/24/2020 08:54:40 AM EDT [facility] Name Value Range Interpretation Code Description Data Roxy rce(s) Supporting Document(s) Prothrombin time (PT) 15.5 s 12.5-14.9 H [facility] INR in Platelet poor plasma by Coagulation assay 1.21 [facility] Routine intensity oral anticoagulation I NR is typically 2.0-3.0. Target INR must be clinically individualized. ID Date Data Source [id number] 06/24/2020 08:54:[address] [facility] Value Range Interpretation Code Description Data Roxy rce(s) Supporting Document(s) aPTT in Platelet poor plasma by Coagulation assay 28.2 s 24.0-33. 0 [facility] ID Date Data Source [id number] 06/24/2020 09:09:[address] [facility] Value Range Interpretation Code Description Data Roxy rce(s) Supporting Document(s) Albumin [Mass/volume] in Serum or Plasma by Bromocresol green (BCG) dye binding method 3.7 g/dL 3.5-5.2 [facility] Bilirubin.total [Mass/volume] in Serum or Plasma 0.5 mg/dL <1.2 [facility] Bilirubin.direct [Mass/volume] in Serum or Plasma <0.3 [facility] Alkaline phosphatase [Enzymatic activity/volume] in Serum or Plasma 72 U/L 40-129 [facility] Aspartate aminotransferase [Enzymatic activity/volume] in Serum or Plasma 20 U/L <40 [facility] Alanine aminotransferase [Enzymatic activity/volume] in Seru m or Plasma 24 U/L <41 [facility] Protein [Mass/volume] in Serum or Plasma 6.9 g/dL 6.4-8.3 [facility] ID Date Data Source [id number] 06/24/2020 09:09:[address] [facility] Value Range Interpretation Code Description Data Roxy rce(s) Supporting Document(s) Bicarbonate [Moles/volume] in Serum 34 mmol/L 22-29 H [facility] Chloride [Moles/volume] in Serum or Plasma 92 mmol/L 98-107 L [facility] Creatinine [Mass/volume] in Serum or Plasma 0.85 mg/dL 0.70-1.20 [facility] Glucose [Mass/volume] in Serum or Plasma 116 mg/dL 70-140 [facility] Potassium [Moles/volume] in Serum or Plasma 4.3 mmol/L 3.4-5.1 [facility] Sodium [Moles/volume] in Serum or Plasma 136 mmol/L 136-145 [facility] Urea nitrogen [Mass/volume] in Serum or Plasma 13 mg/dL 8-23 [facility] Anion gap 3 in Serum or Plasma 10 mmol/L 8-15 [facility] Osmolality of Serum or Plasma by calculation 283 mosm/kg 275-300 [facility] Creatinine/Urea nitrogen [Mass Ratio] in Serum or Plasma 15 [facility] Calcium [Mass/volume] in Serum or Plasma 8.5 mg/dL 8.8-10.2 L [facility] Glomerular filtration rate/1.73 sq M pre dicted among non-blacks [Volume Rate/Area] in Serum or Plasma by Creatinine-based formula (MDRD) >6 0 [facility] Glomerular filtration rate/1.73 sq M pre dicted among blacks [Volume Rate/Area] in Serum or Plasma by Creatinine-based formula (MDRD) >60 [facility] ID Date Data Source [id number] 06/24/2020 09:09:23 AM [facility] Name Value Range Interpretation Code Description Data Roxy rce(s) Supporting Document(s) Troponin T.cardiac [Mass/volume] in Serum or Plasma <0.01 [facility] Procedure Vital Signs ID Date Data Source [id number] 07/10/2020 10:54:56 AM [facility] Name Value Range Interpretation Code Description Data Source(s) WEIGHT RECORDED 356.8 lb 356.8 lb [facility] Body height Measured 65.98 in 65.98 in [facility]
--- NOTE | 2020-12-07 15:54 | REP ---
INDICATION: DYSPNEA/COUGH COMPARISON: 09/08/2019 TECHNIQUE: Portable AP view of the chest FINDINGS: The mediastinum and cardiac silhouette are stable and cardiomegaly again noted. The lung cueva demonstrate chronic changes at the left base along with findings to suggest pulmonary vascular and interstitial edema. Skeletal structures are intact. IMPRESSION: Cardiomegaly with findings to suggest pulmonary vascular congestion/interstitial edema. No focal consolidation or effusion. <Electronically signed by Mateusz Garcia > 12/07/20 [id number]
[2020-12-07] MEDS ORDERED: PRED10TA2 PO (16:24)
[2020-12-07 17:30] VITALS: BP 158/79
--- NOTE | 2020-12-09 14:57 | ED PDOC ---
Post-Departure Follow-Up dr bryson faxed formal report of cxr for Harlan Oliver MD Dec 09, 2020 14:57
== END 2020-12-07 19:03 | disposition home or self-care (01) ==
LOC: M ED 14:16
DX: T42.6X5A Adverse effect of other antiepileptic and sedative-hypnotic drugs, initial encounter (principal); Y92.9 Unspecified place or not applicable; Y93.9 Activity, unspecified; I51.7 Cardiomegaly; I50.9 Heart failure, unspecified; E66.9 Obesity, unspecified; Z79.82 Long term (current) use of aspirin; Z79.899 Other long term (current) drug therapy; Z88.8 Allergy status to other drugs, medicaments and biological substances
CPT/HCPCS: 71045; 80053; 85025; 85652; 93041; 94760; 96374; 96375; 99285; J2930

== ENCOUNTER 2021-03-27 08:53 | Inpatient (IN) | payer OTHER ==
[~2021-03-27] VITALS: Ht 167.6 cm; Wt 167.4 kg
[2021-03-27 09:18] LABS: BASO # 0.1 10^3/uL (0.0-0.2); BASO % 0.6 % (0.0-1.0); EOS # 0.2 10^3/uL (0.0-0.5); EOS % 1.7 % (0.0-3.0); LYMPH # 1.1 10^3/uL (1.5-5.0); LYMPH % 10.8 % (24.0-44.0); MEAN CORPUSCULAR HEMOGLOBIN 26.4 pg (27.0-33.0); MEAN CORPUSCULAR HGB CONC 28.2 g/dl (32.0-36.5); MEAN CORPUSCULAR VOLUME 93.5 fl (80.0-96.0); MONO # 0.6 10^3/uL (0.0-0.8); MONO % 6.1 % (2.0-8.0); NEUTROPHILS # 8.4 10^3/uL (1.5-8.5); NEUTROPHILS % 80.5 % (36.0-66.0); PLATELET COUNT, AUTOMATED 267 10^3/uL (150-450); RED BLOOD COUNT 4.17 10^6/uL (4.30-6.10); WHITE BLOOD COUNT 10.5 10^3/uL (4.0-10.0)
[2021-03-27] MEDS ORDERED: ATOR40TA75 PO (09:26)
[2021-03-27] MEDS ORDERED: RAMI1CAP24 PO (09:26)
--- NOTE | 2021-03-27 09:30 | REP ---
INDICATION: DYSPNEA/COUGH COMPARISON: 12/07/2020 TECHNIQUE: Portable AP view of the chest FINDINGS: The mediastinum and cardiac silhouette are stable and cardiomegaly is again noted. The lung cueva demonstrate chronic changes at the left base. No focal consolidation. No effusion. No pneumothorax. IMPRESSION: No acute cardiopulmonary process appreciated. <Electronically signed by Mateusz Garcia > 03/27/21 [id number]
[2021-03-27 09:50] LABS: ALBUMIN 2.7 GM/DL (3.2-5.2); BILIRUBIN,DIRECT 0.2 MG/DL (0.0-0.2); BILIRUBIN,TOTAL 0.6 MG/DL (0.2-1.0); THYROID STIMULATING HORMONE 2.39 uIU/ML (0.358-3.740); TOTAL PROTEIN 6.9 GM/DL (6.4-8.2)
[2021-03-27] MEDS ORDERED: methylPREDNISolone 125MG 2ML VIAL IV ONE (10:05)
[2021-03-27] MEDS: COMBIVENT RESPIMAT 100-20MCG INHALER 4GM INH SCH ×3 (10:07→11:17)
[2021-03-27] MEDS ORDERED: ISOVUE-370 76% 100ML VIAL As Ordered ONE (10:19)
--- NOTE | 2021-03-27 11:16 | REP ---
INDICATION: ro pe COMPARISON: None. TECHNIQUE: Axial contrast enhanced images from the thoracic inlet to the upper abdomen using pulmonary embolus technique with multiplanar re-formations. 75 ml Isovue 370 intravenous contrast material administered without complication. This CT examination was performed using the following dose reduction techniques: Automated exposure control, adjustment of mA and/or kv according to the patient's size, and use of iterative reconstruction technique. FINDINGS: Satisfactory enhancement of the pulmonary vasculature is achieved and no filling defects are identified to suggest pulmonary embolus. Further evaluation of the mediastinum demonstrates atherosclerotic changes to the thoracic aorta and coronary arteries. The thoracic aorta is without aneurysm or dissection. Cardiomegaly is noted without pericardial effusion. Lung cueva demonstrate posterior basilar dependent changes as well as bibasilar atelectasis (right greater than left). No discrete focal consolidation. No effusion. No pneumothorax. No adenopathy. Skeletal structures intact and without acute osseous abnormality. IMPRESSION: No evidence for pulmonary embolus. Mild bibasilar atelectasis (right greater than left). <Electronically signed by Mateusz Garcia > 03/27/21 [id number]
--- NOTE | 2021-03-27 11:56 | REP ---
INDICATION: ro dvt COMPARISON: None. TECHNIQUE: Kapoor scale and color Doppler evaluation bilateral lower extremities using linear high frequency transducer. FINDINGS: Ultrasound examination of the right and left lower extremity deep venous structures from the common femoral vein to the popliteal vein demonstrates normal compressibility flow and wave patterns in response to respiration and augmentation. There is no evidence for deep venous thrombosis. IMPRESSION: No evidence for deep venous thrombosis. <Electronically signed by Mateusz Garcia > 03/27/21 [id number]
[2021-03-27] MEDS ORDERED: ACETAMINOPHEN TAB 650MG DOSE (2X325MG) PO PRN (13:20)
--- NOTE | 2021-03-27 13:23 | ECGEPIP ---
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
--- NOTE | 2021-03-27 13:25 | ECGEPIP ---
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
--- NOTE | 2021-03-27 13:32 | HPEPDOC ---
General Date of Admission 03/27/21 Date of Service: March 27, 2021 Chief Complaint The patient is a 60-year-old male admitted with a reason for visit of SOB. Source: Patient Exam Limitations: No limitations Severity: Moderate History of Present Illness Patient is 60 years old male with past history of morbid obesity, chronic hypercarbic respiratory failure, COPD on BiPAP and CPAP, diastolic CHF, coronary artery diseases presented to the hospital with increased shortness of breath. Patient stated that he has been having increased shortness of breath for past week. He stated that shortness of breath worsening with minimal physical exertion. Patient denied fever, chills cough or sputum production. Home Medications Scheduled Albuterol Sulf (Albuterol Sulfate) 2.5 Mg/3 Ml Nebu, 2.5 MG INH QID, (Reported) Aripiprazole (Aripiprazole) 15 Mg Tablet, 15 MG PO DAILY, (Reported) Aspirin (Aspirin) 81 Mg Chw, 81 MG PO DAILY, (Reported) Budesonide/Formoterol (Symbicort 160-4.5 Mcg Inhaler) 60 Puff/Inhaler Aers, 2 PUFFS INH BID, (Reported) Carvedilol (Carvedilol) 12.5 Mg Tab, 6.25 MG PO BID, (Reported) Cyclobenzaprine HCl (Cyclobenzaprine HCl) 10 Mg Tab, 10 MG PO QHS, (Reported) Furosemide (Furosemide) 40 Mg Tab, 40 MG PO BID@0900,1700 Mineral Oil/Petrolatum,White (Hydrocerin Cream) 1 Cre Cre, 0 DOSE TOP TID Omeprazole (Omeprazole) 20 Mg Capsule.dr, 20 MG PO DAILY, (Reported) Potassium Chloride (Potassium Chloride) 10 Meq Tab, 10 MEQ PO BID, (Reported) Prednisone (Prednisone) 10 Mg Tablet, 10 MG PO ASDIRECTED 6 po day 1-3; 5 po day 4-5; 4 po day 6-7; 3 po day 8-9, 2 poday 10-11; 1 po day 12-14 Tiotropium Bowen (Spiriva) 18 Mcg Cap, 1 INHALATION INH DAILY, (Reported) Scheduled PRN Albuterol Sulfate (Proair Hfa) 108 Mcg/Act Aer, 2 PUFF INH Q4H PRN for SOB/WHEEZING, (Reported) Guaifenesin/Dextromethorphan (Mucus Relief Dm Tablet) 1 Tab Tab, 1 TAB PO Q4H PRN for CONGESTION, (Reported) Nitroglycerin (Nitroglycerin) 0.4 Mg Sub, 0.4 MG SL NITRO PRN for CHEST PAIN, (Reported) Miscellaneous Medications Atorvastatin Calcium (Atorvastatin Calcium) 40 Mg Tablet, (Reported) Ramipril (Ramipril) 5 Mg Capsule, (Reported) Allergies Coded Allergies: gabapentin (Verified Allergy, Intermediate, hives, 12/07/20) tramadol (Verified Allergy, Intermediate, hives, 03/27/21) Vital Signs Vital Signs Date Time Temp Pulse Resp B/P (MAP) Pulse Ox O2 Delivery O2 Flow Rate FiO2 03/27/21 13:00 137/70 (92) 03/27/21 12:48 58 93 NIPPV (BIPAP/CPAP) 03/27/21 12:18 24 03/27/21 10:58 30 03/27/21 09:10 97.3 03/27/21 08:57 10.0 Laboratory Data Labs 24H Laboratory Tests 2 03/27/21 09:05: Immature Granulocyte % (Auto) 0.3, Neutrophils (%) (Auto) 80.5H, Lymphocytes (%) (Auto) 10.8L, Monocytes (%) (Auto) 6.1, Eosinophils (%) (Auto) 1.7, Basophils (%) (Auto) 0.6, Neutrophils # (Auto) 8.4, Lymphocytes # (Auto) 1.1L, Monocytes # (Auto) 0.6, Eosinophils # (Auto) 0.2, Basophils # (Auto) 0.1, Nucleated Red Blood Cells % (auto) 0.0, Lactic Acid Level 1.4, Total Bilirubin 0.6, Direct Bilirubin 0.2, Aspartate Amino Transf (AST/SGOT) 7, Alanine Aminotransferase (ALT/SGPT) 13, Alkaline Phosphatase 68, ZM-[id number]-M-Type Natriuretic Peptide 282H, Total Protein 6.9, Albumin 2.7L, Albumin/Globulin Ratio 0.6, Thyroid Stimulating Hormone (TSH) 2.390, Thyroxine (T4) 8.0 03/27/21 09:10: POC Troponin I (Misc) 0.01 03/27/21 09:12: POC Glucose (Misc Panel) 104, POC Sodium (Misc Panel) 138, POC Potassium (Misc Panel) 3.9, POC Chloride (Misc Panel) 91L, POC Total CO2 (Misc Panel) 43.0H, POC Blood Urea Nitrogen (Misc Panel 12, POC Ionized Calcium (Misc Panel) 4.6, POC Creatinine (Misc Panel) 1.0, POC Hematocrit (Misc Panel) 38.0 03/27/21 09:29: POC Total CO2 (Misc Panel) 44.0H, POC pH (Misc Panel) 7.335L, POC Base Excess (Misc Panel) 16.0H, POC Saturated Percent O2 (Misc) 93L, POC pO2 (Misc Panel) 78.0L, POC pCO2 (Misc Panel) 78.3*H, POC HCO3 (Misc Panel) 41.8H 03/27/21 10:36: POC pH (Misc Panel) 7.317L, POC Base Excess (Misc Panel) 15.0H, POC Saturated Percent O2 (Misc) 91L, POC pO2 (Misc Panel) 70.0L, POC pCO2 (Misc Panel) 80.8*H, POC HCO3 (Misc Panel) 41.3H, POC Total CO2 (Misc Panel) 44.0H 03/27/21 11:53: POC Troponin I (Misc) 0.01 03/27/21 13:22: POC pH (Misc Panel) 7.370, POC Base Excess (Misc Panel) 17.0H, POC Saturated Percent O2 (Misc) 90L, POC pO2 (Misc Panel) 64.0L, POC pCO2 (Misc Panel) 72.7*H, POC HCO3 (Misc Panel) 42.1H, POC Total CO2 (Misc Panel) 44.0H CBC/BMP Laboratory Tests 03/27/21 09:05 Microbiology Microbiology 03/27/21 Blood Culture, Received Pending 03/27/21 Respiratory Virus Panel (PCR) (NAVEED) - Final, Complete 03/27/21 Blood Culture, Received Pending EZEQUIEL ABERNATHY DO March 27, 2021 13:32
--- NOTE | 2021-03-27 13:43 | HPEPDOC ---
General Date of Admission 03/27/21 Date of Service: March 27, 2021 Chief Complaint The patient is a 60-year-old male admitted with a reason for visit of SOB. Source: Patient Exam Limitations: Clinical conditions Severity: Moderate History of Present Illness Patient is 60 years old male with past history of bipolar disorder, advanced COPD on CPAP and BiPAP, obesity hypoventilation syndrome, diastolic CHF, coronary artery diseases presented to the hospital with increased shortness of breath. Patient stated that for past 7-8 days his been having increased shortness of breath especially on exertion. He denied fever, chills, cough or sputum production. He is chronically on BiPAP and CPAP . In emergency room patient was found to have blood gas with pH 7.3, CO2 80.8, troponin level negative. CTA showed No evidence for pulmonary embolus. Mild bibasilar atelectasis. BNP 282, white blood count 10.5. Patient was placed on the BiPAP, blood gas improved with pH 7.4, CO2 59.4. Patient is poor historian. Part of his history I obtained from previous chart Home Medications Scheduled Albuterol Sulf (Albuterol Sulfate) 2.5 Mg/3 Ml Nebu, 2.5 MG INH QID, (Reported) Aripiprazole (Aripiprazole) 15 Mg Tablet, 15 MG PO DAILY, (Reported) Aspirin (Aspirin) 81 Mg Chw, 81 MG PO DAILY, (Reported) Budesonide/Formoterol (Symbicort 160-4.5 Mcg Inhaler) 60 Puff/Inhaler Aers, 2 PUFFS INH BID, (Reported) Carvedilol (Carvedilol) 12.5 Mg Tab, 6.25 MG PO BID, (Reported) Cyclobenzaprine HCl (Cyclobenzaprine HCl) 10 Mg Tab, 10 MG PO QHS, (Reported) Furosemide (Furosemide) 40 Mg Tab, 40 MG PO BID@0900,1700 Mineral Oil/Petrolatum,White (Hydrocerin Cream) 1 Cre Cre, 0 DOSE TOP TID Omeprazole (Omeprazole) 20 Mg Capsule.dr, 20 MG PO DAILY, (Reported) Potassium Chloride (Potassium Chloride) 10 Meq Tab, 10 MEQ PO BID, (Reported) Prednisone (Prednisone) 10 Mg Tablet, 10 MG PO ASDIRECTED 6 po day 1-3; 5 po day 4-5; 4 po day 6-7; 3 po day 8-9, 2 poday 10-11; 1 po day 12-14 Tiotropium [place] (Spiriva) 18 Mcg Cap, 1 INHALATION INH DAILY, (Reported) Scheduled PRN Albuterol Sulfate (Proair Hfa) 108 Mcg/Act Aer, 2 PUFF INH Q4H PRN for SOB/WHEEZING, (Reported) Guaifenesin/Dextromethorphan (Mucus Relief Dm Tablet) 1 Tab Tab, 1 TAB PO Q4H PRN for CONGESTION, (Reported) Nitroglycerin (Nitroglycerin) 0.4 Mg Sub, 0.4 MG SL NITRO PRN for CHEST PAIN, (Reported) Miscellaneous Medications Atorvastatin Calcium (Atorvastatin Calcium) 40 Mg Tablet, (Reported) Ramipril (Ramipril) 5 Mg Capsule, (Reported) Allergies Coded Allergies: gabapentin (Verified Allergy, Intermediate, hives, 12/07/20) tramadol (Verified Allergy, Intermediate, hives, 03/27/21) Past Medical History Medical History diastolic congestive heart failure, chronic obstructive pulmonary disease (COPD), coronary artery disease, obesity, obstructive sleep apnea (JESUS) on BiPAP or CPAP at home, unclear, hypertension, hyperlipidemia, morbid obesity Family History I personally reviewed family history and found not pertinent Social History * Smoker: former Smoker Alcohol: Denies Drugs: denies A-FIB/CHADSVASC A-FIB History Current/History of A-Fib/PAF?: No Current PO Anticoag Therapy: No Review of Systems Constitutional: Denies: Chills, Fever Eyes: Denies: Pain ENT: Denies: Head Aches Skin: Reports: Rash (groin) Pulmonary: Reports: Dyspnea Cardiovascular: Denies: Chest Pain Gastrointestinal: Denies: Nausea, Vomiting Genitourinary: Denies: Dysuria Hematologic: Denies: Bruising Endocrine: Denies: Polydipsia, Polyphagia Neurological: Denies: Weakness Psych: Reports: Mood Normal Physical Examination General Exam: Positive: Alert, Cooperative Eye Exam: Positive: PERRLA ENT Exam: Positive: Atraumatic Neck Exam: Positive: Supple, JVD Chest Exam: Positive: Diminished Heart Exam: Positive: Rate Normal Telemetry: Positive: No significant arrhythmia Abdomen Exam: Positive: Normal bowel sounds Extremity Exam: Positive: Clubbing; Negative: Cyanosis Skin Exam: Positive: Nl turgor and temperature, Rash (groin area, suprapubic area) Neuro Exam: Positive: Cranial Nerves 3-12 NL Psych Exam: Positive: Mental status NL Vital Signs Vital Signs Date Time Temp Pulse Resp B/P (MAP) Pulse Ox O2 Delivery O2 Flow Rate FiO2 03/27/21 13:00 137/70 (92) 03/27/21 12:48 58 93 NIPPV (BIPAP/CPAP) 03/27/21 12:18 24 03/27/21 10:58 30 03/27/21 09:10 97.3 03/27/21 08:57 10.0 Laboratory Data Labs 24H Laboratory Tests 2 03/27/21 09:05: Immature Granulocyte % (Auto) 0.3, Neutrophils (%) (Auto) 80.5H, Lymphocytes (%) (Auto) 10.8L, Monocytes (%) (Auto) 6.1, Eosinophils (%) (Auto) 1.7, Basophils (%) (Auto) 0.6, Neutrophils # (Auto) 8.4, Lymphocytes # (Auto) 1.1L, Monocytes # (Auto) 0.6, Eosinophils # (Auto) 0.2, Basophils # (Auto) 0.1, Nucleated Red Blood Cells % (auto) 0.0, Lactic Acid Level 1.4, Total Bilirubin 0.6, Direct Bilirubin 0.2, Aspartate Amino Transf (AST/SGOT) 7, Alanine Aminotransferase (ALT/SGPT) 13, Alkaline Phosphatase 68, VU-Odu-W-Type Natriuretic Peptide 282H, Total Protein 6.9, Albumin 2.7L, Albumin/Globulin Ratio 0.6, Thyroid Stimulating Hormone (TSH) 2.390, Thyroxine (T4) 8.0 03/27/21 09:10: POC Troponin I (Misc) 0.01 03/27/21 09:12: POC Glucose (Misc Panel) 104, POC Sodium (Misc Panel) 138, POC Potassium (Misc Panel) 3.9, POC Chloride (Misc Panel) 91L, POC Total CO2 (Misc Panel) 43.0H, POC Blood Urea Nitrogen (Misc Panel 12, POC Ionized Calcium (Misc Panel) 4.6, POC Creatinine (Misc Panel) 1.0, POC Hematocrit (Misc Panel) 38.0 03/27/21 09:29: POC Total CO2 (Misc Panel) 44.0H, POC pH (Misc Panel) 7.335L, POC Base Excess (Misc Panel) 16.0H, POC Saturated Percent O2 (Misc) 93L, POC pO2 (Misc Panel) 78.0L, POC pCO2 (Misc Panel) 78.3*H, POC HCO3 (Misc Panel) 41.8H 03/27/21 10:36: POC pH (Misc Panel) 7.317L, POC Base Excess (Misc Panel) 15.0H, POC Saturated Percent O2 (Misc) 91L, POC pO2 (Misc Panel) 70.0L, POC pCO2 (Misc Panel) 80.8*H, POC HCO3 (Misc Panel) 41.3H, POC Total CO2 (Misc Panel) 44.0H 03/27/21 11:53: POC Troponin I (Misc) 0.01 03/27/21 13:22: POC pH (Misc Panel) 7.370, POC Base Excess (Misc Panel) 17.0H, POC Saturated Percent O2 (Misc) 90L, POC pO2 (Misc Panel) 64.0L, POC pCO2 (Misc Panel) 72.7*H, POC HCO3 (Misc Panel) 42.1H, POC Total CO2 (Misc Panel) 44.0H CBC/BMP Laboratory Tests 03/27/21 09:05 Microbiology Microbiology 03/27/21 Blood Culture, Received Pending 03/27/21 Respiratory Virus Panel (PCR) (NAVEED) - Final, Complete 03/27/21 Blood Culture, Received Pending Assessment/Plan Patient is 60 years old male with past history of bipolar disorder, advanced COPD on CPAP and BiPAP, obesity hypoventilation syndrome, diastolic CHF, coronary artery diseases presented to the hospital with increased shortness of b reath. Patient stated that for past 7-8 days his been having increased shortness of breath especially on exertion. He denied fever, chills, cough or sputum production. He is chronically on BiPAP and CPAP . In emergency room patient was found to have blood gas with pH 7.3, CO2 80.8, troponin level negative. CTA showed No evidence for pulmonary embolus. Mild bibasilar atelectasis. BNP 282, white blood count 10.5. Patient was placed on the BiPAP, blood gas improved with pH 7.4, CO2 59.4. Patient is poor historian. Part of his history I obtained from previous chart Problems (1) Acute and chronic respiratory failure Status: Acute Problem Text: Multifactorial. Most likely secondary to COPD exacerbation superimposed with acute CHF Inhalers, continue BiPAP, continue monitor ABG (2) CHF (congestive heart failure) Status: Acute Problem Text: Patient was diagnosed with diastolic CHF I's and O's Lasix 40 mg IV twice a day Cardiac diet (3) Hyperlipidemia Status: Chronic Problem Text: Continue statin (4) Bipolar 1 disorder Status: Chronic Problem Text: Continue home meds (5) GERD (gastroesophageal reflux disease) Status: Chronic Problem Text: Continue omeprazole (6) Morbid obesity Status: Chronic Problem Text: Complicated care BMI 60.5 (7) Coronary artery disease Status: Chronic Problem Text: Continue home cardioprotective medications (8) Candidiasis Status: Chronic Problem Text: Nystatin powder Plan / VTE VTE Prophylaxis Ordered?: Yes EZEQUIEL ABERNATHY DO March 27, 2021 13:43
[2021-03-27] MEDS ORDERED: ASCO500T PO (13:46)
[2021-03-27] MEDS ORDERED: FURO40TA2 PO (13:46)
[2021-03-27] MEDS ORDERED: ACET-683 PO (13:46)
[2021-03-27] MEDS ORDERED: IPRA0.00 NEB (13:46)
[2021-03-27] MEDS ORDERED: ASPI-161 PO (13:46)
[2021-03-27] MEDS ORDERED: CYCLOBENZAPRINE 10MG TABLET PO PRN (13:55)
[2021-03-27] MEDS ORDERED: NITROGLYCERIN 0.4 MG SUBL TABLET SL PRN (13:55)
[2021-03-27] MEDS ORDERED: ALBUTEROL SULFATE 2.5 MG/0.5 ML INH NEB SOLN NEB PRN (14:00)
[2021-03-27] MEDS ORDERED: ALBUTEROL SULFATE 2.5 MG/0.5 ML INH NEB SOLN NEB SCH (14:00)
[2021-03-27] MEDS ORDERED: NYSTATIN 100,000 UNITS/GM TOPICAL PWD 15 GM TOP PRN (14:05)
[2021-03-27 14:49] VITALS: BP 137/81
[2021-03-27] MEDS: IPRATROPIUM 0.5MG/ALBUTEROL 2.5MG INH SOL UD 3ML (DUONEB) NEB SCH ×2 (15:38→20:00)
[2021-03-27 16:00] VITALS: BP 143/72
[2021-03-27] MEDS ORDERED: SLF 3 ML SYR IV PRN (16:55)
[2021-03-27] MEDS: FUROSEMIDE 40MG/4ML VIAL (J1940) IV SCH ×2 (17:04→20:30)
[2021-03-27] MEDS: methylPREDNISolone 125MG 2ML VIAL IV SCH (17:04)
[2021-03-27 19:48] VITALS: BP 142/67
[2021-03-27] MEDS: SYMBICORT 80/4.5MCG INHALER 6GM INH SCH (20:10)
[2021-03-27] MEDS: ATORVASTATIN 20 MG TAB PO SCH (20:28)
[2021-03-27] MEDS: OMEPRAZOLE 20 MG CAP PO SCH (20:29)
[2021-03-27] MEDS: CARVedilol 12.5 MG TAB PO SCH (20:29)
[2021-03-27] MEDS: ENOXAPARIN 40MG/0.4ML SYRINGE (J1650 PER 10MG) SC SCH (20:29)
[2021-03-27] MEDS: SLF 3 ML SYR IV SCH (20:30)
[2021-03-27] MEDS ORDERED: FUROSEMIDE 40MG/4ML VIAL (J1940) IV SCH (21:00)
[2021-03-28] VITALS: BP 142/67
[2021-03-28] MEDS ORDERED: OXYMETAZOLINE 0.05% NASAL SPRAY (AFRIN) PRN (01:20)
[2021-03-28] MEDS: IPRATROPIUM 0.5MG/ALBUTEROL 2.5MG INH SOL UD 3ML (DUONEB) NEB SCH ×4 (02:44→19:54)
[2021-03-28] MEDS: methylPREDNISolone 125MG 2ML VIAL IV SCH ×3 (02:52→18:28)
[2021-03-28 04:00] VITALS: BP 136/68
[2021-03-28] MEDS: SLF 3 ML SYR IV SCH ×3 (06:17→21:58)
[2021-03-28 06:50] LABS: ALBUMIN 2.6 GM/DL (3.2-5.2); ALT/SGPT 13 U/L (12-78); BILIRUBIN,TOTAL 0.6 MG/DL (0.2-1.0); BLOOD UREA NITROGEN 19 MG/DL (7-18); CARBON DIOXIDE LEVEL 38 MEQ/L (21-32); CHLORIDE LEVEL 95 MEQ/L (98-107); CREATININE FOR GFR 0.96 MG/DL (0.70-1.30); GLOMERULAR FILTRATION RATE > 60.0 (>49); GLUCOSE, FASTING 144 MG/DL (70-100); MAGNESIUM LEVEL 2.2 MG/DL (1.8-2.4); POTASSIUM SERUM 4.5 MEQ/L (3.5-5.1); SODIUM LEVEL 138 MEQ/L (136-145); TOTAL PROTEIN 6.5 GM/DL (6.4-8.2)
[2021-03-28 07:00] LABS: HEMATOCRIT 37.4 % (42.0-52.0); HEMOGLOBIN 10.6 g/dl (13.5-17.5); MEAN CORPUSCULAR HEMOGLOBIN 25.9 pg (27.0-33.0); MEAN CORPUSCULAR HGB CONC 28.3 g/dl (32.0-36.5); MEAN CORPUSCULAR VOLUME 91.4 fl (80.0-96.0); PLATELET COUNT, AUTOMATED 293 10^3/uL (150-450); RED BLOOD COUNT 4.09 10^6/uL (4.30-6.10); WHITE BLOOD COUNT 14.7 10^3/uL (4.0-10.0)
[2021-03-28] MEDS: SYMBICORT 80/4.5MCG INHALER 6GM INH SCH ×2 (07:14→19:54)
[2021-03-28 07:35] VITALS: BP 122/58
[2021-03-28] MEDS: ramipriL 5 MG CAP PO SCH (09:46)
[2021-03-28] MEDS: FUROSEMIDE 40MG/4ML VIAL (J1940) IV SCH ×3 (09:46→21:58)
[2021-03-28] MEDS: CARVedilol 12.5 MG TAB PO SCH ×2 (09:47→21:57)
[2021-03-28] MEDS: ASPIRIN 81MG ENTERIC TABLET PO SCH (09:47)
--- NOTE | 2021-03-28 11:15 | IPNPDOC ---
Text Note Date of Service The patient was seen on 03/28/21. NOTE Subjective: Patient stated that he feels better today and he breathing improved. Objective: GENERAL APPEARANCE: Morbidly obese male with poor hygiene HEENT: no scleral icterus, no JVD, EOMI CARDIOVASCULAR: S1S2 LUNGS: Diminished lung sounds ABDOMEN: soft & not tender w palpitation, obese MUSCULOSKELETAL: no cyanosis, + 2 swelling INTEGUMENT: no generalized pallor NEUROLOGICAL: cranial nerve function from 2-12 intact intact, follows commands, speech not dysarthric Assessment/Plan Patient is 60 years old male with past history of bipolar disorder, advanced C OPD on CPAP and BiPAP, obesity hypoventilation syndrome, diastolic CHF, coronary artery diseases presented to the hospital with increased shortness of breath. Patient stated that for past 7-8 days his been having increased shortness of breath especially on exertion. He denied fever, chills, cough or sputum production. He is chronically on BiPAP and CPAP 24 /7. In emergency room patient was found to have blood gas with pH 7.3, CO2 80.8, troponin level negative. CTA showed No evidence for pulmonary embolus. Mild bibasilar atelectasis. BNP 282, white blood count 10.5. Patient was placed on the BiPAP, blood gas improved with pH 7.4, CO2 59.4. Patient is poor historian. Part of his history I obtained from previous chart Problems (1) Acute and chronic respiratory failure Multifactorial. Most likely secondary to COPD exacerbation superimposed with acute CHF Inhalers, continue BiPAP, continue monitor ABG (2) CHF (congestive heart failure) Patient was diagnosed with diastolic CHF I's and O's Lasix 40 mg IV twice a day Cardiac diet Await echo report (3) Hyperlipidemia Continue statin (4) Bipolar 1 disorder Continue home meds (5) GERD (gastroesophageal reflux disease) Status: Chronic Problem Text: Continue omeprazole (6) Morbid obesity Complicated care BMI 60.5 (7) Coronary artery disease Continue home cardioprotective medications (8) Candidiasis Nystatin powder VS,Fishbone, I+O VS, Fishbone, I+O Laboratory Tests 03/28/21 05:54 Vital Signs Date Time Temp Pulse Resp B/P (MAP) Pulse Ox O2 Delivery O2 Flow Rate FiO2 03/28/21 09:47 73 122/58 03/28/21 07:35 96.2 20 91 NIPPV (BIPAP/CPAP) 30 03/27/21 20:12 15 I&O- Last 24 Hours up to 6 AM 03/28/21 06:00 Intake Total 590 ml Output Total 1800 ml Balance -1210 ml EZEQUIEL ABERNATHY DO March 28, 2021 11:15
[2021-03-28 12:00] VITALS: BP 128/58
[2021-03-28 16:00] VITALS: BP 115/63
[2021-03-28 20:00] VITALS: BP 127/65
[2021-03-28] MEDS: ATORVASTATIN 20 MG TAB PO SCH (21:56)
[2021-03-28] MEDS: ENOXAPARIN 40MG/0.4ML SYRINGE (J1650 PER 10MG) SC SCH (21:57)
[2021-03-28] MEDS: OMEPRAZOLE 20 MG CAP PO SCH (21:57)
[2021-03-29] VITALS: BP 110/55
[2021-03-29] MEDS: methylPREDNISolone 125MG 2ML VIAL IV SCH ×2 (02:00→09:38)
[2021-03-29] MEDS: IPRATROPIUM 0.5MG/ALBUTEROL 2.5MG INH SOL UD 3ML (DUONEB) NEB SCH ×3 (02:34→13:35)
[2021-03-29 04:00] VITALS: BP 131/63
[2021-03-29] MEDS: SLF 3 ML SYR IV SCH ×2 (05:20→14:00)
[2021-03-29 08:00] VITALS: BP 153/75
[2021-03-29] MEDS: SYMBICORT 80/4.5MCG INHALER 6GM INH SCH (08:23)
[2021-03-29 09:33] VITALS: BP 153/75
[2021-03-29] MEDS: CARVedilol 12.5 MG TAB PO SCH (09:33)
[2021-03-29] MEDS: ASPIRIN 81MG ENTERIC TABLET PO SCH (09:33)
[2021-03-29] MEDS: ramipriL 5 MG CAP PO SCH (09:34)
[2021-03-29] MEDS: FUROSEMIDE 40MG/4ML VIAL (J1940) IV SCH (09:38)
[2021-03-29 12:00] VITALS: BP 126/59
[2021-03-29] MEDS ORDERED: TORS20TA2 PO ×2 (13:35→13:41)
[2021-03-29] MEDS ORDERED: PRED10TA2 PO (13:39)
--- NOTE | 2021-03-29 18:00 | DS.PDOC ---
Discharge Summary General Date of Admission March 27, 2021 at 13:16 Date of Discharge 03/29/21 Discharge Summary PROCEDURES PERFORMED DURING STAY: [None]. ADMITTING DIAGNOSES: Acute and chronic respiratory failure Diastolic CHF (congestive heart failure Hyperlipidemia Bipolar 1 disorder GERD (gastroesophageal reflux disease) Morbid obesity Coronary artery disease Candidiasis DISCHARGE DIAGNOSES: Acute and chronic respiratory failure Diastolic CHF (congestive heart failure Hyperlipidemia Bipolar 1 disorder GERD (gastroesophageal reflux disease) Morbid obesity Coronary artery disease Candidiasis COMPLICATIONS/CHIEF COMPLAINT: Acute And Chronic Respiratory Failure. HISTORY OF PRESENT ILLNESS: Patient is 60 years old male with past history of bipolar disorder, advanced COPD on CPAP and BiPAP, obesity hypoventilation syndrome, diastolic CHF, coronary artery diseases presented to the hospital with increased shortness of breath. Patient stated that for past 7-8 days his been having increased shortness of breath especially on exertion. He denied fever, chills, cough or sputum production. He is chronically on BiPAP and CPAP . In emergency room patient was found to have blood gas with pH 7.3, CO2 80.8, troponin level negative. CTA showed No evidence for pulmonary embolus. Mild bibasilar atelectasis. BNP 282, white blood count 10.5. Patient was placed on the BiPAP, blood gas improved with pH 7.4, CO2 59.4. Patient is poor historian. Part of his history I obtained from previous chart HOSPITAL COURSE: During hospital stay functional addressed (1) Acute and chronic respiratory failure Multifactorial. Most likely secondary to COPD exacerbation superimposed with acute CHF Patient received Inhalers, continue BiPAP with improvement (2) CHF (congestive heart failure) Patient was diagnosed with diastolic CHF I's and O's Lasix 40 mg IV twice a day Cardiac diet echo report pending (3) Hyperlipidemia Continue statin (4) Bipolar 1 disorder Continue home meds (5) GERD (gastroesophageal reflux disease) Continue omeprazole (6) Morbid obesity Complicated care BMI 60.5 (7) Coronary artery disease Continue home cardioprotective medications (8) Candidiasis Nystatin powder DISCHARGE MEDICATIONS: Please see below. ALLERGIES: Please see below. PHYSICAL EXAMINATION ON DISCHARGE: VITAL SIGNS: Please see below. GENERAL APPEARANCE: Morbidly obese male with poor hygiene HEENT: no scleral icterus, no JVD, EOMI CARDIOVASCULAR: S1S2 LUNGS: Diminished lung sounds ABDOMEN: soft & not tender w palpitation, obese MUSCULOSKELETAL: no cyanosis, + 2 swelling INTEGUMENT: no generalized pallor NEUROLOGICAL: cranial nerve function from 2-12 intact intact, follows commands, speech not dysarthric LABORATORY DATA: Please see below. PROGNOSIS: Fair ACTIVITY: [As tolerated]. DIET: Cardiac DISPOSITION: Home Health Service. DISCHARGE INSTRUCTIONS: Continue using BiPAP and CPAP ITEMS TO FOLLOWUP ON ON OUTPATIENT: Follow-up with PCP in 3-5 days DISCHARGE CONDITION: [Stable]. TIME SPENT ON DISCHARGE: 50minutes. Vital Signs/I&Os Vital Signs Date Time Temp Pulse Resp B/P (MAP) Pulse Ox O2 Delivery O2 Flow Rate FiO2 03/29/21 12:00 3.0 03/29/21 12:00 97.3 58 19 126/59 (81) 96 Nasal Cannula 03/29/21 04:00 30 I&O- Last 24 Hours up to 6 AM 03/29/21 06:00 Intake Total 2290 ml Output Total 3055 ml Balance -765 ml Microbiology Microbiology 03/27/21 Blood Culture - Preliminary, Resulted No Growth after 48 hours. All Specime... 03/27/21 Respiratory Virus Panel (PCR) (NAVEED) - Final, Complete 03/27/21 Blood Culture - Preliminary, Resulted No Growth after 48 hours. All Specime... Discharge Medications Scheduled Ascorbic Acid (Ascorbic Acid) 500 Mg Tablet, 500 MG PO DAILY, (Reported) Aspirin (Aspirin EC) 81 Mg Tablet.dr, 81 MG PO DAILY, (Reported) Atorvastatin Calcium (Atorvastatin Calcium) 40 Mg Tablet, 40 MG PO QHS, (Reported) Budesonide/Formoterol (Symbicort 160-4.5 Mcg Inhaler) 60 Puff/Inhaler Aers, 2 PUFFS INH BID, (Reported) Carvedilol (Carvedilol) 12.5 Mg Tab, 12.5 MG PO BID, (Reported) Ipratropium/Albuterol Sulfate (Iprat-Albut 0.5-3(2.5) mg/3 ml) 3 Ml Ampul.neb, 1 VIAL NEB QID, (Reported) Omeprazole (Omeprazole) 20 Mg Capsule.dr, 20 MG PO QPM, (Reported) Potassium Chloride (Potassium Chloride) 10 Meq Tab, 10 MEQ PO BID, (Reported) Prednisone (Prednisone) 10 Mg Tablet, 10 MG PO TAPER Take 4 tabs daily x 3 days, then 3 tabs daily x 3 days, then 2 tabs daily x 3 days, then 1 tab daily x 3 days and stop Ramipril (Ramipril) 5 Mg Capsule, 5 MG PO DAILY, (Reported) Tiotropium [place] (Spiriva) 18 Mcg Cap, 18 MCG INH DAILY, (Reported) Torsemide (Torsemide) 20 Mg Tablet, 1 TAB PO BID Scheduled PRN Acetaminophen (Acetaminophen) 500 Mg Tablet, 1,000 MG PO Q6H PRN for PAIN, (Reported) Albuterol Sulfate (Proair Hfa) 108 Mcg/Act Aer, 2 PUFF INH Q4H PRN for SOB/WHEEZING, (Reported) Cyclobenzaprine HCl (Cyclobenzaprine HCl) 10 Mg Tab, 10 MG PO QHS PRN for MUSCLE SPASMS, (Reported) Nitroglycerin (Nitroglycerin) 0.4 Mg Sub, 0.4 MG SL NITRO PRN for CHEST PAIN, (Reported) Allergies Coded Allergies: gabapentin (Verified Allergy, Intermediate, hives, 12/07/20) tramadol (Verified Allergy, Intermediate, hives, 03/27/21) EZEQUIEL ABERNATHY DO March 29, 2021 18:00
== END 2021-03-29 15:16 | disposition home health service (06) | DRG 291 ==
LOC: EDBD 08:53 → M ED 08:53 → M ED INP 13:16 → M PCU 14:49
PROVIDERS: ADMIT Internal Medicine; ATTEND Internal Medicine
DX: I11.0 Hypertensive heart disease with heart failure (principal); J96.20 Acute and chronic respiratory failure, unspecified whether with hypoxia or hypercapnia; E66.2 Morbid (severe) obesity with alveolar hypoventilation; J98.11 Atelectasis; J44.1 Chronic obstructive pulmonary disease with (acute) exacerbation; Z68.44 Body mass index [BMI] 60.0-69.9, adult; F31.9 Bipolar disorder, unspecified; I50.32 Chronic diastolic (congestive) heart failure; I25.10 Atherosclerotic heart disease of native coronary artery without angina pectoris; E78.5 Hyperlipidemia, unspecified; B37.9 Candidiasis, unspecified; Z20.822 Contact with and (suspected) exposure to COVID-19; Z79.899 Other long term (current) drug therapy; Z79.82 Long term (current) use of aspirin; Z88.8 Allergy status to other drugs, medicaments and biological substances; Z87.891 Personal history of nicotine dependence

== ENCOUNTER 2021-06-04 15:18 | Inpatient (IN) | payer OTHER ==
[~2021-06-04] VITALS: Ht 167.6 cm; Wt 164.5 kg
[~2021-06-04 15:18] MED LIST changes: +ACET-683 PO; +ASCO500T PO; +ASPI-161 PO; +IPRA0.00 NEB; +TORS20TA2 PO
[2021-06-04] MEDS ORDERED: NITROGLYCERIN 2% OINT 1 GM *U/D* PKT TOP ONE (15:45)
[2021-06-04] MEDS ORDERED: NITROGLYCERIN 0.4 MG SUBL TABLET SL PRN ×2 (15:45→20:45)
[2021-06-04 16:23] LABS: BASO # 0.1 10^3/uL (0.0-0.2); BASO % 0.5 % (0.0-1.0); EOS # 0.2 10^3/uL (0.0-0.5); EOS % 1.8 % (0.0-3.0); HEMATOCRIT 38.8 % (42.0-52.0); HEMOGLOBIN 10.9 g/dl (13.5-17.5); LYMPH # 1.1 10^3/uL (1.5-5.0); LYMPH % 8.9 % (24.0-44.0); MEAN CORPUSCULAR HEMOGLOBIN 25.9 pg (27.0-33.0); MEAN CORPUSCULAR HGB CONC 28.1 g/dl (32.0-36.5); MEAN CORPUSCULAR VOLUME 92.2 fl (80.0-96.0); MONO # 0.5 10^3/uL (0.0-0.8); MONO % 4.4 % (2.0-8.0); NEUTROPHILS # 9.9 10^3/uL (1.5-8.5); NEUTROPHILS % 83.9 % (36.0-66.0); PLATELET COUNT, AUTOMATED 295 10^3/uL (150-450); RED BLOOD COUNT 4.21 10^6/uL (4.30-6.10); WHITE BLOOD COUNT 11.8 10^3/uL (4.0-10.0)
--- NOTE | 2021-06-04 16:25 | REP ---
INDICATION: DYSPNEA/COUGH. COMPARISON: Multiple latest 03/27/2021 FINDINGS: The technique utilized in obtaining the radiograph has magnified the cardiac silhouette and accentuated the interstitial markings. Cardiomediastinal silhouette is stable. There is global cardiomegaly accentuated by technique. Soft tissue artifact obscures the lung bases. No definite acute patchy parenchymal opacities or pleural effusions seem to have developed on this limited portable examination. The patient is tilted rotated to the right. There is no significant change in appearance of the osseous structures. IMPRESSION: Exam limitations as described above. There is no definite evidence of acute cardiopulmonary disease. PA and lateral views of the chest are recommended. <Electronically signed by Washington Lagunas > 06/04/21 [id number]
[2021-06-04 16:56] LABS: ALBUMIN 2.6 GM/DL (3.2-5.2); ALT/SGPT 19 U/L (12-78); BILIRUBIN,DIRECT 0.2 MG/DL (0.0-0.2); BILIRUBIN,TOTAL 0.5 MG/DL (0.2-1.0); BLOOD UREA NITROGEN 17 MG/DL (7-18); CALCIUM LEVEL 8.3 MG/DL (8.8-10.2); CARBON DIOXIDE LEVEL 35 MEQ/L (21-32); CHLORIDE LEVEL 97 MEQ/L (98-107); CK-MB VALUE MASS < 1.0 NG/ML (<3.6); CPK CREATINE PHOSPHOKINASE 89 U/L (39-308); GLOMERULAR FILTRATION RATE > 60.0 (>49); GLUCOSE, FASTING 110 MG/DL (70-100); MB/CK RELATIVE INDEX 1.12 (< OR =4); NT-PRO BNP 993 PG/ML (<125); POTASSIUM SERUM 4.9 MEQ/L (3.5-5.1); SODIUM LEVEL 135 MEQ/L (136-145); TOTAL PROTEIN 7.6 GM/DL (6.4-8.2); TROPONIN I < 0.02 NG/ML (< 0.10)
[2021-06-04] MEDS ORDERED: hydrALAZINE 20MG/ML 1ML VIAL (J0360 PER 20MG) IV STA ×2 (17:01→18:37)
--- NOTE | 2021-06-04 17:17 | ECGEPIP ---
[facility] - ED Test Date: 2021-06-04 Pat Name: ANU CALDERÓN Department: Room: - Gender: Male [employer]: hc : 1960 Requested By: Hilary Pink Order Number: [id number] Reading MD: Alireza Aguila Measurements Intervals [place] Rate: 82 P: 49 [place]: 166 QRS: 50 QRSD: 90 T: 57 QT: 380 QTc: 443 Interpretive Statements Normal sinus rhythm Similar to tracing done 03-27-21 Electronically Signed on 06-04-2021 17:17:38 EDT by Alireza Aguila
[2021-06-04] MEDS ORDERED: ISOVUE-370 76% 100ML VIAL As Ordered ONE (17:46)
[2021-06-04] MEDS ORDERED: ERGO500029 PO (19:27)
[2021-06-04] MEDS ORDERED: FLUTISP NARES (19:27)
[2021-06-04] MEDS ORDERED: GABA-282 PO (19:27)
[2021-06-04] MEDS ORDERED: TORS10TA3 PO (19:27)
--- NOTE | 2021-06-04 19:32 | REP ---
INDICATION: sewlling COMPARISON: None. TECHNIQUE: Kapoor scale and color Doppler evaluation using linear high frequency transducer. FINDINGS: Ultrasound examination of the right and left lower extremity deep venous structures from the common femoral vein through the popliteal veins demonstrates normal compressibility flow and wave patterns in response to respiration and augmentation. There is no evidence for deep venous thrombosis. Bilateral calf veins were not evaluated due to body habitus and subcutaneous edema. IMPRESSION: No evidence for deep venous thrombosis. <Electronically signed by Mateusz Garcia > 06/04/21 [id number]
--- NOTE | 2021-06-04 19:39 | REPVR ---
PROCEDURE INFORMATION: Exam: CTA Chest With Contrast Exam date and time: 06/04/2021 6:57 PM Age: 60 years old Clinical indication: Shortness of breath; Additional info: SOB TECHNIQUE: Imaging protocol: Computed tomographic angiography of the chest with contrast. 3D rendering (Not supervised by radiologist): MIP and/or 3D reconstructed images were created by the technologist. Radiation optimization: All CT scans at this facility use at least one of these dose optimization techniques: automated exposure control; mA and/or kV adjustment per patient size (includes targeted exams where dose is matched to clinical indication); or iterative reconstruction. Contrast material: ISOVUE 370; Contrast volume: 100 ml; Contrast route: INTRAVENOUS (IV); COMPARISON: CT ANGIO CHEST 03/27/2021 10:52 AM FINDINGS: Pulmonary arteries: Peripheral pulmonary artery evaluation limited by cardiac and respiratory motion artifact. Central pulmonary arteries show no intraluminal defect suggestive of clot. Aorta: No thoracic aortic aneurysm or dissection. Lungs: Pulmonary vascular/interstitial pattern does not suggest active pulmonary edema. No suspicious lung mass or air space process. No central endobronchial lesion. Pleural spaces: No pleural effusion or pneumothorax. Heart: No overt cardiac enlargement or abnormal volume of pericardial fluid. Lymph nodes: No enlarged mediastinal lymph nodes. Bones/joints: Bony structures show no acute fracture or destructive process. Soft tissues: No asymmetric abnormality of the extrathoracic soft tissues. IMPRESSION: 1. No evidence of acute, central pulmonary embolus. Peripheral pulmonary arterial evaluation is limited by cardiac and respiratory motion artifact. 2. No other acute or concerning focal intrathoracic abnormality. Electronically signed by: Adolfo Weiner On 06/04/2021 19:39:25 PM
[2021-06-04] MEDS ORDERED: MOM 30ML SUSPENSION UDC PO PRN (19:40)
[2021-06-04] MEDS ORDERED: MAALOX 30 ML SUSP *UDC PO PRN (19:40)
--- NOTE | 2021-06-04 19:46 | HPEPDOC ---
[facility] Medical History & Physical Date of Admission Jun 04, 2021 Date of Service: Jun 04, 2021 Other Provider Olayinka Phelps MD Attending Physician: VANNESSA SEALS MD History and Physical TIME OF SERVICE: 8:10 PM CHIEF COMPLAINT: Shortness of breath HISTORY OF PRESENT ILLNESS: The patient was lethargic and kept on falling asleep during my assessment therefore the history is limited. Mr. Berger came to the hospital with complaints of shortness of breath for 3 days. Based on ER intake notes his home health aide called EMS; when they arrived he the patient was using his CPAP machine and was only sating at 88%. They gave him Decadron and 1 dose of nitro prior to transport to the ER. At the time of my evaluation he denied having chest pain missing any doses of his medications or not using his PAP machine. He admitted to eating a small bag of chips 2 days ago but was unable to identify any triggers for his shortness of breath. REVIEW OF SYSTEMS: Unable to obtain because patient was lethargic PAST MEDICAL/ SURGICAL HISTORY: (Per chart review) COPD, JESUS /OHS, Chronic HFpEF, Coronary artery disease /[place] x2 in 2010 and 2011, Class III obesity, Dyslipidemia, GERD, Bipolar disorder, Atrophic right kidney, Remote history of seizure disorder SOCIAL HISTORY: (Per ER intake notes) he denies smoking or drinking, lives with his , is retired on disability and has a home health aide who assist with meal preparation bathing dressing ambulation housework and administering medications. FAMILY HISTORY: Unobtainable because the patient was lethargic ALLERGIES: Please see below. HOME MEDICATIONS: Please see below. PHYSICAL EXAMINATION: Vital Signs Date Time Temp Pulse Resp B/P (MAP) Pulse Ox O2 Delivery O2 Flow Rate FiO2 06/04/21 15:28 187/99 (128) 06/04/21 15:33 97.8 72 26 97 Nasal Cannula 7.0 06/04/21 15:52 35 GEN: well nourished / well developed/seated upright in hospital bed /lethargic INTEGUMENT: not flushed/ not jaundice /he has stasis dermatitis changes on both lower extremities HEENT: BiPAP mask in place / sclera anicteric CVS: RRR/NMRG/neck is short therefore unable to assess for JVP/ 1+ BLE edema LUNGS: He has difficulties speaking full sentence without stopping to take a breath /breath sounds are diminished / he has decreased air entry bilaterally /he is not wheezing ABDOMEN: Contour concave MSK/EXTREMITIES: NCAT NEURO: Unable to complete full neurological assessment because the patient keeps falling asleep nevertheless his speech is not dysarthric PSYCH: Able to understand and follow some simple commands LABORATORY DATA: See below. IMAGING: Chest x-ray IMPRESSION: Exam limitations as described above. There is no definite evidence of acute cardiopulmonary disease. PA and lateral views of the chest are recommended. CTA chest IMPRESSION: 1. No evidence of acute, central pulmonary embolus. Peripheral pulmonary arterial evaluation is limited by cardiac and respiratory motion artifact. 2. No other acute or concerning focal intrathoracic abnormality. BLE vascular ultrasound IMPRESSION: No evidence for deep venous thrombosis. MICROBIOLOGY: Respiratory panel is pending ASSESSMENT: is a 60-year-old male with history of COPD, JESUS /OHS, HFpEF, CAD, obesity, DLP, GERD, & Bipolar disorder who was admitted for management of encephalopathy, acute on chronic hypoxemic hypercapnic respiratory failure, hypertensive emergency, acute on chronic HFpEF, and acute COPD. PLAN: 1 Encephalopathy He likely has a combination of hypertensive encephalopathy and hypercapnic encephalopathy Plan: Admit to ICU/treat respiratory failure and hypertensive crisis/frequent neurochecks / hold Gabapentin & Cyclobenazaprine 2 Acute on chronic BIPAP dependent hypercapnic hypoxemic respiratory failure / OHS/JESUS Possibly triggered by flash pulmonary edema in the setting of accelerated hypertension Plan: NPO w breaks for meds while on BiPAP/follow-up ABG in the morning/the daytime team may consider consulting for co-management in the morning 3 Hypertensive Emergency Diagnosis is based on the presence of a SBP >180, co-existing dyspnea and hypertensive encephalopathy It is currently not clear what triggered this episode Plan: We will give 1 dose of IV enalaprilat and start IV Lasix /tonight we will aim for a blood pressure around 160/100, if his blood pressure does not improve after these medications we will start him on a nitro drip / we will resume his oral Coreg and ramipril in the morning if he is more alert 4 Acute on chronic HFpEF Plan: Follow-up strict I's and O's Daily weights /we will aim for net balance of -3.5 L/IV Lasix/when he is more alert and able to eat we will start a low-salt and fluid restricted diet /telemetry & trend troponins 5 Acute COPD Trigger of acute COPD is likely heart failure Plan: supplemental O2 / continuous pulse oximetry / Dunebs Q6H, Albuterol Q1HP / Solumedrol IV & IV PPI /he is already on BiPAP we will follow up repeat ABG in the morning 6 Normocytic anemia Plan: Follow-up CBC and monitor for bleeding 7 Chronic CAD / DLP Plan: Atorvastatin, Coreg and Nitroglycerine 8 Class III obesity Complicates care Plan: Follow-up A1c/she can follow-up with his PCP to discuss lifestyle interventions and referral to bariatric surgeon DVT PROPHYLAXIS: lovenox /Ana Maria score is 5 therefore pharmacological prophylaxis is indicated DISPOSITION: His prognosis is guarded he will likely need at least 2 midnight's stay Home Medications Scheduled Aripiprazole (Aripiprazole) 30 Mg Tablet, 15 MG PO DAILY Ascorbic Acid (Ascorbic Acid) 500 Mg Tablet, 500 MG PO DAILY Aspirin (Aspirin EC) 81 Mg Tablet.dr, 81 MG PO DAILY Atorvastatin Calcium (Atorvastatin Calcium) 40 Mg Tablet, 40 MG PO QHS Budesonide/Formoterol (Symbicort 160-4.5 Mcg Inhaler) 60 Puff/Inhaler Aers, 2 PUFFS INH BID Carvedilol (Carvedilol) 12.5 Mg Tab, 12.5 MG PO BID Docusate Sodium (Docusate Sodium) 100 Mg Capsule, 100 MG PO DAILY Ergocalciferol (Vitamin D2) (Vitamin D2) 50,000 Units Cap, 50,000 UNITS PO 1XWK Fluticasone Propionate (Fluticasone Propionate) 16 Gm [place].susp, 2 SPRAY NARES DAILY Omeprazole (Omeprazole) 20 Mg Capsule.dr, 20 MG PO QPM Potassium Chloride (Potassium Chloride) 10 Meq Tab, 10 MEQ PO BID Ramipril (Ramipril) 5 Mg Capsule, 5 MG PO DAILY Tiotropium [place] (Spiriva) 18 Mcg Cap, 18 MCG INH DAILY Torsemide (Torsemide) 10 Mg Tablet, 30 MG PO DAILY Scheduled PRN Acetaminophen (Acetaminophen) 500 Mg Tablet, 1,000 MG PO Q6H PRN for PAIN Albuterol Sulfate (Proair Hfa) 108 Mcg/Act Aer, 2 PUFF INH Q4H PRN for SOB/WHEEZING Cyclobenzaprine HCl (Cyclobenzaprine HCl) 10 Mg Tab, 10 MG PO QHS PRN for MUSCLE SPASMS Guaifenesin (Guaifenesin) 200 Mg Tablet, 200 MG PO Q4H PRN for COUGH Ipratropium/Albuterol Sulfate (Iprat-Albut 0.5-3(2.5) mg/3 ml) 3 Ml Ampul.neb, 1 VIAL NEB QID PRN for SHORTNESS OF BREATH Nitroglycerin (Nitroglycerin) 0.4 Mg Sub, 0.4 MG SL NITRO PRN for CHEST PAIN diphenhydrAMINE HCl (diphenhydrAMINE HCl) 25 Mg Tablet, 25 MG PO QHS PRN for SLEEP Allergies Coded Allergies: gabapentin (Verified Allergy, Intermediate, hives, 12/07/20) tramadol (Verified Allergy, Intermediate, hives, 03/27/21) A-FIB/CHADSVASC A-FIB History Current/History of A-Fib/PAF?: No Current PO Anticoag Therapy: No VANNESSA SEALS MD Jun 04, 2021 19:46
[2021-06-04] MEDS ORDERED: ENALAPRILAT INJ 2.5MG/2ML VIAL IV ONE (19:50)
[2021-06-04] MEDS ORDERED: DIPH25TA4 PO (19:51)
[2021-06-04] MEDS ORDERED: ARIP1TAB44 PO (19:51)
[2021-06-04] MEDS ORDERED: DOCU100C16 PO (19:53)
[2021-06-04] MEDS ORDERED: GUAI200T6 PO (19:53)
[2021-06-04] MEDS: FUROSEMIDE 40MG/4ML VIAL (J1940) IV SCH (20:06)
[2021-06-04] MEDS ORDERED: ALBUTEROL SULFATE 2.5 MG/0.5 ML INH NEB SOLN NEB PRN (20:45)
[2021-06-04] MEDS ORDERED: methylPREDNISolone 125MG 2ML VIAL IV STA (20:45)
[2021-06-04 21:07] LABS: RSV AMPLIFICATION NEGATIVE (NEGATIVE)
[2021-06-04] MEDS: ATORVASTATIN 20 MG TAB PO SCH (21:41)
[2021-06-04] MEDS: CARVedilol 12.5 MG TAB PO SCH (21:42)
[2021-06-04 22:19] VITALS: BP 163/81
[2021-06-04 23:01] VITALS: BP 102/49
[2021-06-05] VITALS (13 sets, daily range): BP systolic 93–136; BP diastolic 46–67
[2021-06-05] MEDS: FUROSEMIDE 40MG/4ML VIAL (J1940) IV SCH ×6 (00:24→20:16)
[2021-06-05] MEDS: IPRATROPIUM 0.5MG/ALBUTEROL 2.5MG INH SOL UD 3ML (DUONEB) NEB SCH ×4 (01:26→20:51)
[2021-06-05 04:39] LABS: ABG BASE EXCESS 8.8 (-2.0-2.0); ABG HCO3 38.1 MEQ/L (22.0-26.0); ABG O2 SATURATION 92.4 % (95.0-99.0); ABG PARTIAL PRESSURE O2 69.5 mmHg (75.0-100.0); ABG STANDARD HCO3 32.5 MEQ/L (22.0-26.0); ABG TOTAL CO2 40.6 MEQ/L (23.0-31.0); ABG pH (ARTERIAL) 7.292 UNITS (7.350-7.450)
[2021-06-05 04:43] LABS: ABG PARTIAL PRESSURE CO2 80.7 mmHg (35.0-45.0)
[2021-06-05 04:55] LABS: HEMATOCRIT 39.3 % (42.0-52.0); MEAN CORPUSCULAR HEMOGLOBIN 26.1 pg (27.0-33.0); MEAN CORPUSCULAR VOLUME 93.3 fl (80.0-96.0); PLATELET COUNT, AUTOMATED 310 10^3/uL (150-450); RED BLOOD COUNT 4.21 10^6/uL (4.30-6.10); WHITE BLOOD COUNT 12.6 10^3/uL (4.0-10.0)
[2021-06-05 05:20] LABS: BLOOD UREA NITROGEN 20 MG/DL (7-18); CALCIUM LEVEL 8.4 MG/DL (8.8-10.2); CARBON DIOXIDE LEVEL 40 MEQ/L (21-32); CHLORIDE LEVEL 96 MEQ/L (98-107); CREATININE FOR GFR 0.91 MG/DL (0.70-1.30); GLOMERULAR FILTRATION RATE > 60.0 (>49); GLUCOSE, FASTING 135 MG/DL (70-100); HEMOGLOBIN A1c 6.4 %; MAGNESIUM LEVEL 2.3 MG/DL (1.8-2.4); PHOSPHORUS LEVEL 5.7 MG/DL (2.5-4.9); POTASSIUM SERUM 4.7 MEQ/L (3.5-5.1); SODIUM LEVEL 137 MEQ/L (136-145)
[2021-06-05] MEDS ORDERED: methylPREDNISolone 125MG 2ML VIAL IV SCH (06:00)
[2021-06-05] MEDS: TIOTROPIUM INHALER/CAPSULE (SPIRIVA) INH SCH (07:37)
[2021-06-05] MEDS: ramipriL 5 MG CAP PO SCH (08:35)
[2021-06-05] MEDS: ASPIRIN 81MG ENTERIC TABLET PO SCH (08:35)
[2021-06-05] MEDS: ARIPiprazole 15 MG TAB (AbiLIFY) PO SCH (08:36)
[2021-06-05] MEDS: ENOXAPARIN 40MG/0.4ML SYRINGE (J1650 PER 10MG) SC SCH (08:36)
[2021-06-05] MEDS: CARVedilol 12.5 MG TAB PO SCH ×2 (08:36→20:15)
[2021-06-05] MEDS: PANTOPRAZOLE 40MG VIAL (C9113 PER 1) IV SCH (08:36)
[2021-06-05 09:19] LABS: CK-MB VALUE MASS < 1.0 NG/ML (<3.6); CPK CREATINE PHOSPHOKINASE 42 U/L (39-308); MB/CK RELATIVE INDEX 2.38 (< OR =4); TROPONIN I < 0.02 NG/ML (< 0.10)
--- NOTE | 2021-06-05 10:33 | CCN ---
CRITICAL CARE NOTE DATE: 06/05/2021 SUBJECTIVE: I was called to the intensive care unit to evaluate this 60-year-old male with [id number] respiratory failure, admitted last evening with altered level of consciousness. He was found to be hypercarbic and started on noninvasive positive pressure ventilation. This morning, he remains hypercarbic, encephalopathic. He is unable to give me any full history at this point. On review of the electronic health record, he has an extensive history of chronic obstructive lung disease, obstructive sleep apnea syndrome, obesity, hypoventilation syndrome, congestive heart failure, coronary artery disease, status post stent placement and bipolar disease. The record indicates that he has been noncompliant with medication treatments on an outpatient basis. OBJECTIVE: Vital signs: At bedside, his temperature is 97.7, pulse rate 60, respirations 20, blood pressure 124/78. HEENT: His pupils are round and sluggish. Oral mucosa is pink. Neck: Supple and francisco, no stridor. No obvious jugular venous distention. Exam is limited. Heart: The heart sounds are regular without appreciable murmur. Breath sounds are markedly diminished with diffuse expiratory wheeze and with rales bilaterally. Chest: Symmetric, moving symmetrically with assisted ventilated efforts. Abdomen: Soft and obese with evidence of gross edema. Extremities: Grossly edematous. Peripheral pulses difficult to appreciate. DIAGNOSTIC STUDIES: White cell count is 12.6, hemoglobin 11, hematocrit 39, platelet count 310,000. Differential: White cell count last evening showed 83.9% neutrophils. Electrolytes: Sodium 137, potassium 4.7, chloride 96, CO2 is up from 35 to 40, BUN 20, creatinine 0.91, glucose 135. His liver enzymes on admission were normal, troponin less than 0.02, BNP 993, albumin 2.6. Arterial blood gases show a pH of 7.29, pCO2 80, pO2 69, this on noninvasive positive pressure ventilation. Chest x-ray shows interstitial edema and a large heart size. ASSESSMENT AND PLAN: The primary problem requiring critical attention is [id number] respiratory failure with hypercarbia. I will adjust his noninvasive positive pressure ventilation to optimize gas exchange. Anasarca. The patient is responding to Lasix. However, his bicarb is elevated. I will add a dose of acetazolamide and will closely monitor urine output and renal indices. Obesity, hypoventilation syndrome: The patient has a standing diagnosis of sleep apnea but will likely require bilevel pressure in place of CPAP at the point of discharge. DVT prophylaxis will be addressed with Lovenox. Glycemic control is fair. The patient's diet will be altered. The patient's case was reviewed with the attending hospitalist. The ICU nursing team was updated on the patient's status as well as plans of care for the day. 97 minutes was spent in the provision of bedside critical care and coordination excluding any time for the performance of procedures.
[2021-06-05] MEDS: acetaZOLAMIDE 250 MG TAB PO SCH ×2 (11:13→17:07)
[2021-06-05 18:25] LABS: ABG BASE EXCESS 10.1 (-2.0-2.0); ABG HCO3 36.5 MEQ/L (22.0-26.0); ABG O2 SATURATION 94.9 % (95.0-99.0); ABG PARTIAL PRESSURE CO2 58.6 mmHg (35.0-45.0); ABG PARTIAL PRESSURE O2 77.2 mmHg (75.0-100.0); ABG STANDARD HCO3 33.8 MEQ/L (22.0-26.0); ABG TOTAL CO2 38.3 MEQ/L (23.0-31.0); ABG pH (ARTERIAL) 7.412 UNITS (7.350-7.450)
[2021-06-05] MEDS: ATORVASTATIN 20 MG TAB PO SCH (20:15)
[2021-06-06] VITALS: BP 132/63
[2021-06-06] MEDS: FUROSEMIDE 40MG/4ML VIAL (J1940) IV SCH ×7 (00:25→23:47)
[2021-06-06] MEDS: IPRATROPIUM 0.5MG/ALBUTEROL 2.5MG INH SOL UD 3ML (DUONEB) NEB SCH ×4 (01:09→20:42)
[2021-06-06 04:00] VITALS: BP 138/65
[2021-06-06 05:06] LABS: BASO % 0.1 % (0.0-1.0); EOS % 0.1 % (0.0-3.0); HEMATOCRIT 37.1 % (42.0-52.0); HEMOGLOBIN 10.7 g/dl (13.5-17.5); LYMPH # 1.1 10^3/uL (1.5-5.0); MEAN CORPUSCULAR HEMOGLOBIN 26.2 pg (27.0-33.0); MEAN CORPUSCULAR HGB CONC 28.8 g/dl (32.0-36.5); MEAN CORPUSCULAR VOLUME 90.7 fl (80.0-96.0); MONO # 0.9 10^3/uL (0.0-0.8); MONO % 5.8 % (2.0-8.0); NEUTROPHILS # 13.7 10^3/uL (1.5-8.5); NEUTROPHILS % 86.5 % (36.0-66.0); PLATELET COUNT, AUTOMATED 317 10^3/uL (150-450); RED BLOOD COUNT 4.09 10^6/uL (4.30-6.10); WHITE BLOOD COUNT 15.8 10^3/uL (4.0-10.0)
[2021-06-06 05:29] LABS: ALBUMIN 2.5 GM/DL (3.2-5.2); ALT/SGPT 16 U/L (12-78); BILIRUBIN,TOTAL 0.8 MG/DL (0.2-1.0); BLOOD UREA NITROGEN 28 MG/DL (7-18); CALCIUM LEVEL 8.5 MG/DL (8.8-10.2); CARBON DIOXIDE LEVEL 33 MEQ/L (21-32); CHLORIDE LEVEL 96 MEQ/L (98-107); CHOLESTEROL LEVEL 106 MG/DL (< 200); CPK CREATINE PHOSPHOKINASE 71 U/L (39-308); CREATININE FOR GFR 0.94 MG/DL (0.70-1.30); GLOMERULAR FILTRATION RATE > 60.0 (>49); GLUCOSE, FASTING 109 MG/DL (70-100); LDH LACTATE DEHYDROGENASE 287 U/L (87-241); MAGNESIUM LEVEL 2.1 MG/DL (1.8-2.4); PHOSPHORUS LEVEL 4.1 MG/DL (2.5-4.9); POTASSIUM SERUM 4.3 MEQ/L (3.5-5.1); SODIUM LEVEL 138 MEQ/L (136-145); TOTAL PROTEIN 7.1 GM/DL (6.4-8.2); TRIGLYCERIDES LEVEL 79 MG/DL (<150)
[2021-06-06 05:32] LABS: ABG BASE EXCESS 14.2 (-2.0-2.0); ABG HCO3 40.2 MEQ/L (22.0-26.0); ABG PARTIAL PRESSURE O2 67.8 mmHg (75.0-100.0); ABG STANDARD HCO3 37.9 MEQ/L (22.0-26.0); ABG pH (ARTERIAL) 7.459 UNITS (7.350-7.450)
[2021-06-06] MEDS: TIOTROPIUM INHALER/CAPSULE (SPIRIVA) INH SCH (07:57)
[2021-06-06 08:00] VITALS: BP 114/67
--- NOTE | 2021-06-06 08:42 | REP ---
INDICATION: Edema COMPARISON: 06/04/2021 TECHNIQUE: Portable AP view of the chest FINDINGS: Mediastinum and cardiac silhouette stable with cardiomegaly again suggested. Perihilar and lower lobe opacities including dense left lower lobe consolidation as well as suspected layering effusions are noted and similar to prior examination. No pneumothorax. IMPRESSION: Bilateral lower lobe opacities (left greater than right). <Electronically signed by Mateusz Garcia > 06/06/21 0889
[2021-06-06] MEDS: CARVedilol 12.5 MG TAB PO SCH ×2 (09:00→19:54)
[2021-06-06] MEDS: PANTOPRAZOLE 40MG VIAL (C9113 PER 1) IV SCH (09:24)
[2021-06-06] MEDS: ENOXAPARIN 40MG/0.4ML SYRINGE (J1650 PER 10MG) SC SCH (09:25)
[2021-06-06] MEDS: ramipriL 5 MG CAP PO SCH (09:25)
[2021-06-06] MEDS: ASPIRIN 81MG ENTERIC TABLET PO SCH (09:25)
[2021-06-06] MEDS: ARIPiprazole 15 MG TAB (AbiLIFY) PO SCH (09:25)
[2021-06-06] MEDS: acetaZOLAMIDE 250 MG TAB PO SCH ×2 (09:25→17:00)
--- NOTE | 2021-06-06 09:41 | IPNPDOC ---
Text Note Date of Service The patient was seen on 06/05/21. NOTE Subjective: Patient seen and examined at bedside. No acute overnight events reported. Patient's mentation has improved at this morning. He denies any new medical complaints Objective: General: NAD, lying comfortably in bed HEENT: NC/AT Lungs: diminished and coarse breath sounds bilaterally Heart: +S1S2, RRR Abd: obese, +BS, soft, NT Ext: gross edema Neuro: difficult to assess but no obvious gross focal deficits Psych: AAOx3 A/P: 60M with PMHx of COPD, JESUS/OHS, HFpEF, CAD, obesity, DLP, GERD, & Bipolar disorder admitted for management of encephalopathy, acute/chronic hypoxemic hypercapnic respiratory failure, hypertensive emergency, acute on chronic HFpEF. #acute/chronic hypoxemic hypercarbic respiratory failure - continue with NIPPV - pulm c/s appreciated - continue diuresis - I/O's, daily weights #JESUS/OHS - as above - continue NIPPV for now #acute/chronic HFpEF - echocardiogram pending - as above, continue diuresis #metabolic encephalopathy - improving #HTN emergency - resolved #COPD - continue duonebs, spiriva # obesity Complicates care #medical non-compliance - complicates care #DVT prophylaxis Disposition: pending clinical improvement VS,Bryan, I+O VS, Bryan, I+O Laboratory Tests 06/06/21 04:46 Vital Signs Date Time Temp Pulse Resp B/P (MAP) Pulse Ox O2 Delivery O2 Flow Rate FiO2 06/06/21 07:59 24 06/06/21 04:00 98.0 65 20 138/65 (89) 92 NIPPV (BIPAP/CPAP) 06/04/21 15:33 7.0 I&O- Last 24 Hours up to 6 AM 06/06/21 06:00 Intake Total 1230 ml Output Total 4650 ml Balance -3420 ml EDNA MÉNDEZ MD Jun 06, 2021 09:41
--- NOTE | 2021-06-06 09:47 | IPNPDOC ---
Text Note Date of Service The patient was seen on 06/06/21. NOTE Subjective: Patient seen and examined at bedside. No acute overnight events reported. Patient's mentation has improved at this morning. He denies any new medical complaints. Objective: General: NAD, lying comfortably in bed HEENT: NC/AT, NIPPV mask in place Lungs: expiratory wheezes, coarse breath sounds bilaterally Heart: +S1S2, RRR Abd: obese, +BS, soft, NT Ext: gross edema, but improved from yesterday Neuro: no obvious gross focal deficits Psych: AAOx3 A/P: 60M with PMHx of COPD, JESUS/OHS, HFpEF, CAD, obesity, DLP, GERD, & Bipolar disorder admitted for management of encephalopathy, acute/chronic hypoxemic hypercapnic respiratory failure, hypertensive emergency, acute on chronic HFpEF. #acute/chronic hypoxemic hypercarbic respiratory failure - ABG much improved - still on NIPPV this morning - pulm c/s appreciated - continue diuresis - receiving iv lasix 40q4, diamox 250 BID - I/O's, daily weights #JESUS/OHS - as above - continue NIPPV for now #acute/chronic HFpEF - echocardiogram pending - as above, continue diuresis #metabolic encephalopathy - appears to have resolved #HTN emergency - resolved - continue ramipril, coreg #COPD - continue duonebs, spiriva # obesity Complicates care #DLP - atorvastatin #medical non-compliance - complicates care #GI prophylaxis - transition to oral PPI #DVT prophylaxis - lovenox Disposition: pending clinical improvement VS,Bryan, I+O VS, Bryan, I+O Laboratory Tests 06/06/21 04:46 Vital Signs Date Time Temp Pulse Resp B/P (MAP) Pulse Ox O2 Delivery O2 Flow Rate FiO2 06/06/21 07:59 24 06/06/21 04:00 98.0 65 20 138/65 (89) 92 NIPPV (BIPAP/CPAP) 06/04/21 15:33 7.0 I&O- Last 24 Hours up to 6 AM 06/06/21 06:00 Intake Total 1230 ml Output Total 4650 ml Balance -3420 ml EDNA MÉNDEZ MD Jun 06, 2021 09:47
[2021-06-06] MEDS: ACETAMINOPHEN TAB 650MG DOSE (2X325MG) PO PRN (10:07)
[2021-06-06] MEDS: BUDESONIDE 0.5 MG/2 ML INHALATION SUSPENSION INH SCH ×2 (11:15→20:42)
--- NOTE | 2021-06-06 11:23 | CCN ---
CRITICAL CARE NOTE DATE: 06/06/2021 SUBJECTIVE: The patient is seen in the intensive care unit. This is hospital day #3, ICU day #3. He tolerated noninvasive positive pressure ventilation. Over the past 24 hours, we have been able to reduce pressures to come extent and have allowed him to be off at intervals to take meds and some clear liquids. OBJECTIVE: VITAL SIGNS: His temperature is 98.1, pulse rate 65, respirations 20, blood pressure 138/65. INTAKE AND OUTPUT: For the past 24 hours, 1110 in and 5150 out. Since midnight, 120 in and 1650 out. GENERAL APPEARANCE: At bedside, he is ill-appearing, but able to interact and respond to questions. His mucosa is pink. NECK: Supple and quite francisco. HEART: Sounds are regular, distant. LUNGS: Breath sounds diminished with diffuse bilateral wheezing. Chest is symmetric. There is some accessory muscle use with conversation. ABDOMEN: Soft and obese. EXTREMITIES: No gross edema. DIAGNOSTIC STUDIES: His white cell count is up slightly at 15.8, hemoglobin is 10.2, hematocrit 37.1, platelet count 312,000. Differential white cell count shows 86% neutrophils. Sodium is 138, potassium 4.3, chloride 96, CO2 of 33, BUN of 28, creatinine 0.94, glucose 109. Arterial blood gases were performed on noninvasive ventilation showing a pH of 7.45, pCO2 of 58, pO2 of 67. Chest imaging was reviewed. Formal report is pending, but there appears to be improved aeration and still some residual edema. As appreciated on review of prior records, there was an echo performed in 2019 showing LVH, but the quality was poor. A repeat echo has been ordered and is pending. MEDICATIONS: On review, he is receiving DuoNebs and long-acting anticholinergic therapy. ASSESSMENT/PLAN: 1. The primary problem requiring critical attention is acute on chronic respiratory failure. Arterial blood gases have improved. We will continue with noninvasive positive pressure ventilation. 2. Anasarca. The patient is responding to diuretics and the bicarb is in acceptable range on acetazolamide. 3. Obesity hypoventilation syndrome. We will have his pressure therapy device brought to the hospital to determine if it can be adjusted appropriate for his needs. 4. Deep vein thrombosis (DVT) prophylaxis being addressed with Lovenox. 5. Ulcer prophylaxis being addressed with Protonix. 6. Glycemic control is fair to good at this point. The patient's condition remains critical. Intensive care unit (ICU) care remains appropriate. His prognosis is fair. I have updated the ICU nursing team on his status and plans of care for the day. I will be speaking with the hospitalist service after they have had the opportunity to round on the patient. CRITICAL CARE TIME: 78 minutes was spent in the provision of bedside critical care and coordination, excluding any time for the performance of procedures.
[2021-06-06 12:00] VITALS: BP 120/63
[2021-06-06 16:00] VITALS: BP 102/49
[2021-06-06 20:00] VITALS: BP 118/59; O2SAT 91
[2021-06-06] MEDS: ATORVASTATIN 20 MG TAB PO SCH (20:28)
[2021-06-07] VITALS: BP 111/55
[2021-06-07] MEDS: IPRATROPIUM 0.5MG/ALBUTEROL 2.5MG INH SOL UD 3ML (DUONEB) NEB SCH ×4 (01:13→19:19)
[2021-06-07] MEDS: FUROSEMIDE 40MG/4ML VIAL (J1940) IV SCH (03:56)
[2021-06-07 04:00] VITALS: BP 115/57; O2SAT 93
[2021-06-07 04:59] LABS: BASO % 0.3 % (0.0-1.0); EOS # 0.1 10^3/uL (0.0-0.5); EOS % 0.9 % (0.0-3.0); HEMATOCRIT 38.7 % (42.0-52.0); HEMOGLOBIN 10.9 g/dl (13.5-17.5); LYMPH # 1.4 10^3/uL (1.5-5.0); LYMPH % 13.1 % (24.0-44.0); MEAN CORPUSCULAR HEMOGLOBIN 25.8 pg (27.0-33.0); MEAN CORPUSCULAR HGB CONC 28.2 g/dl (32.0-36.5); MEAN CORPUSCULAR VOLUME 91.5 fl (80.0-96.0); MONO # 0.9 10^3/uL (0.0-0.8); MONO % 8.3 % (2.0-8.0); NEUTROPHILS # 8.4 10^3/uL (1.5-8.5); NEUTROPHILS % 76.8 % (36.0-66.0); PLATELET COUNT, AUTOMATED 334 10^3/uL (150-450); RED BLOOD COUNT 4.23 10^6/uL (4.30-6.10); WHITE BLOOD COUNT 10.9 10^3/uL (4.0-10.0)
[2021-06-07 05:21] LABS: ALBUMIN 2.8 GM/DL (3.2-5.2); BILIRUBIN,TOTAL 0.7 MG/DL (0.2-1.0); CALCIUM LEVEL 8.4 MG/DL (8.8-10.2); CREATININE FOR GFR 1.3 MG/DL (0.70-1.30); GLOMERULAR FILTRATION RATE 59.5 (>49); MAGNESIUM LEVEL 2.1 MG/DL (1.8-2.4); PHOSPHORUS LEVEL 3.9 MG/DL (2.5-4.9); POTASSIUM SERUM 3.4 MEQ/L (3.5-5.1); TOTAL PROTEIN 7.3 GM/DL (6.4-8.2)
[2021-06-07 05:29] LABS: ABG BASE EXCESS 8.3 (-2.0-2.0); ABG HCO3 34.5 MEQ/L (22.0-26.0); ABG O2 SATURATION 94.4 % (95.0-99.0); ABG PARTIAL PRESSURE CO2 55.6 mmHg (35.0-45.0); ABG PARTIAL PRESSURE O2 72.6 mmHg (75.0-100.0); ABG TOTAL CO2 36.2 MEQ/L (23.0-31.0)
[2021-06-07] MEDS: TIOTROPIUM INHALER/CAPSULE (SPIRIVA) INH SCH (07:07)
[2021-06-07] MEDS: BUDESONIDE 0.5 MG/2 ML INHALATION SUSPENSION INH SCH ×2 (07:07→19:19)
[2021-06-07] MEDS ORDERED: POTASSIUM CHLORIDE 10% LIQ 20 MEQ/15 ML UDC PO ONE (07:30)
--- NOTE | 2021-06-07 07:44 | REP ---
INDICATION: Edema COMPARISON: 06/06/2021 at 6:56 a.m. TECHNIQUE: Portable AP view of the chest FINDINGS: Stable cardiomegaly. Small focus of infiltrate/atelectasis at the basilar right upper lobe suggested. No obvious effusion or pneumothorax. Skeletal structures intact. IMPRESSION: Small focus of atelectasis along the basilar right upper lobe. Otherwise no change from prior examination. <Electronically signed by Mateusz Garcia > 06/07/21 0724
[2021-06-07 08:00] VITALS: BP 126/57
[2021-06-07] MEDS: CARVedilol 12.5 MG TAB PO SCH ×2 (08:17→20:31)
[2021-06-07] MEDS: PANTOPRAZOLE 40MG VIAL (C9113 PER 1) IV SCH (08:17)
[2021-06-07] MEDS: ENOXAPARIN 40MG/0.4ML SYRINGE (J1650 PER 10MG) SC SCH (08:17)
[2021-06-07] MEDS: ARIPiprazole 15 MG TAB (AbiLIFY) PO SCH (08:17)
[2021-06-07] MEDS: ASPIRIN 81MG ENTERIC TABLET PO SCH (08:17)
--- NOTE | 2021-06-07 09:52 | CCN ---
CRITICAL CARE NOTE DATE: 06/07/2021 SUBJECTIVE: The patient is seen in the intensive care unit improved on noninvasive ventilation. Continues to experience dyspnea with minimal activity and display oxygen dependency. OBJECTIVE: VITAL SIGNS: His temperature is 96.9, pulse rate 69, respirations 16, blood pressure 126/57. INTAKE AND OUTPUT: For the past 24 hours, 1230 in and 5300 out. Since midnight, 320 in and 1100 out. GENERAL APPEARANCE: At bedside, he remains ill-appearing. HEENT: His oral mucosa is pink. NECK: Supple and francisco. Jugular veins are difficult to appreciate. HEART: Sounds are regular with a questionable systolic murmur. LUNGS: Breath sounds are diminished with diffuse inspiratory and expiratory wheezing and rales in the bases, right greater than left. ABDOMEN: Soft and obese. EXTREMITIES: Show extensive edema. DIAGNOSTIC STUDIES: His white cell count is down to 10.9, hemoglobin is 10.9, hematocrit 38.7, platelet count 334,000. Differential white cell count shows 76% neutrophils. The electrolytes are sodium 140, potassium down to 3.4, chloride 96, CO2 of 40, BUN 38, creatinine is up to 1.3, glucose 96. Calcium 8.4 on an albumin of 2.8. His magnesium is 2.1. AST 16, ALT 19. The arterial blood gases show a pH of 7.41, pCO2 of 55, pO2 of 72 on noninvasive ventilation. PEEP pressure 20/PEEP of 10. FiO2 of 0.4. Chest imaging is reviewed. This shows some minor atelectasis and otherwise changed. Interstitial edema remains an issue. MEDICATIONS: On review, he is receiving Lovenox 40 mg daily, DuoNebs q. 6 hours, Protonix 40 mg a day, Coreg 12.5 b.i.d., Spiriva one puff daily, and Pulmicort nebulized therapy b.i.d. ASSESSMENT/PLAN: 1. The primary problem requiring critical attention is acute on chronic respiratory failure. The patient is now on and off his noninvasive ventilation and requires a significant flow rate of supplemental oxygen when off. We will try changing to a table top device to allow him to be down graded. 2. Anasarca. He has diuresed well; however, his creatinine is up some. I agree with the plan to hold Lasix for the time being; however, we should continue to target negative I and O (intake and output) over the course of time as he has significant excess fluid. 3. Obesity hypoventilation syndrome. On review of his prior record, there was a sleep test identifying obstructive apnea. I see no titration study performed. The patient indicates that he has a machine through [employer] that I have asked him to have it brought to the hospital that it might be appropriately adjusted. 4. Deep vein thrombosis (DVT) prophylaxis is in place with Lovenox. 5. Ulcer prophylaxis is in place with Protonix. The patient's condition remains critical. ICU care remains appropriate at this point, though he may be able to be downgraded in the next 24 hours. I have updated the patient's care plan with the ICU nursing team. CRITICAL CARE TIME: 67 minutes was spent in the provision of bedside critical care and coordination, excluding any time for the performance of procedures.
--- NOTE | 2021-06-07 10:33 | IPNPDOC ---
Text Note Date of Service The patient was seen on 06/07/21. NOTE Subjective: Patient seen and examined at bedside. No acute overnight events reported. Patient's mentation appears to be back to baseline. He is talkative this morning. He denies any new medical complaints. Objective: General: NAD, sitting comfortably in chair HEENT: NC/AT, nasal cannula in place Lungs: expiratory wheezes, diminished breath sounds Heart: +S1S2, RRR Abd: obese, +BS, soft, NT Ext: gross edema, improved from yesterday Neuro: no obvious gross focal deficits Psych: AAOx3 A/P: 60M with PMHx of COPD, JESUS/OHS, HFpEF, CAD, obesity, DLP, GERD, & Bipolar disorder admitted for management of encephalopathy, acute/chronic hypoxemic hypercapnic respiratory failure, hypertensive emergency, acute on chronic HFpEF. #acute/chronic hypoxemic hypercarbic respiratory failure - continues to improve, saturating well on nasal cannula - he states he uses anywhere from 3-5 L nasal cannula during the day, and possibly 3L bled through CPAP at night - holding lasix for now given increase in creatinine - remains net negative - I/O's, daily weights #JESUS/OHS - as above #acute/chronic HFpEF - echocardiogram pending report - as above, diuresis on hold #metabolic encephalopathy - resolved #HTN emergency - resolved - continue coreg - ramipril on hold - could likely resume in 24 hours #COPD - continue duonebs, spiriva # obesity Complicates care #DLP - atorvastatin #medical non-compliance - complicates care #GI prophylaxis - oral PPI #DVT prophylaxis - lovenox Disposition: pending clinical improvement, implement PT VS,Fishbone, I+O VS, Fishbone, I+O Laboratory Tests 06/07/21 04:34 Vital Signs Date Time Temp Pulse Resp B/P (MAP) Pulse Ox O2 Delivery O2 Flow Rate FiO2 06/07/21 08:17 69 126/57 06/07/21 08:00 96.9 16 92 Nasal Cannula 4.0 06/07/21 01:13 24 I&O- Last 24 Hours up to 6 AM 06/07/21 06:00 Intake Total 1230 ml Output Total 4000 ml Balance -2770 ml EDNA MÉNDEZ MD Jun 07, 2021 10:33
[2021-06-07 12:00] VITALS: BP 123/58
[2021-06-07] MEDS: ACETAMINOPHEN TAB 650MG DOSE (2X325MG) PO PRN (13:49)
[2021-06-07 16:00] VITALS: BP 127/60
[2021-06-07 20:00] VITALS: BP 112/56; O2SAT 91
[2021-06-07] MEDS: ATORVASTATIN 20 MG TAB PO SCH (20:31)
[2021-06-08] VITALS: BP 117/59
[2021-06-08] MEDS: IPRATROPIUM 0.5MG/ALBUTEROL 2.5MG INH SOL UD 3ML (DUONEB) NEB SCH ×2 (02:23→07:21)
[2021-06-08 04:00] VITALS: BP 151/67
[2021-06-08 04:46] LABS: BASO % 0.4 % (0.0-1.0); EOS # 0.2 10^3/uL (0.0-0.5); EOS % 2.6 % (0.0-3.0); HEMATOCRIT 37.6 % (42.0-52.0); HEMOGLOBIN 10.6 g/dl (13.5-17.5); LYMPH # 1.6 10^3/uL (1.5-5.0); LYMPH % 17.2 % (24.0-44.0); MEAN CORPUSCULAR HEMOGLOBIN 25.9 pg (27.0-33.0); MEAN CORPUSCULAR HGB CONC 28.2 g/dl (32.0-36.5); MEAN CORPUSCULAR VOLUME 91.9 fl (80.0-96.0); MONO # 0.8 10^3/uL (0.0-0.8); MONO % 8.6 % (2.0-8.0); NEUTROPHILS # 6.6 10^3/uL (1.5-8.5); NEUTROPHILS % 70.9 % (36.0-66.0); PLATELET COUNT, AUTOMATED 303 10^3/uL (150-450); RED BLOOD COUNT 4.09 10^6/uL (4.30-6.10); WHITE BLOOD COUNT 9.4 10^3/uL (4.0-10.0)
[2021-06-08 05:12] LABS: ALBUMIN 2.6 GM/DL (3.2-5.2); ALT/SGPT 17 U/L (12-78); BLOOD UREA NITROGEN 31 MG/DL (7-18); CALCIUM LEVEL 8.6 MG/DL (8.8-10.2); CARBON DIOXIDE LEVEL 40 MEQ/L (21-32); CHLORIDE LEVEL 99 MEQ/L (98-107); CHOLESTEROL LEVEL 103 MG/DL (< 200); CPK CREATINE PHOSPHOKINASE 32 U/L (39-308); CREATININE FOR GFR 1.02 MG/DL (0.70-1.30); GLOMERULAR FILTRATION RATE > 60.0 (>49); GLUCOSE, FASTING 92 MG/DL (70-100); LDH LACTATE DEHYDROGENASE 160 U/L (87-241); PHOSPHORUS LEVEL 3.9 MG/DL (2.5-4.9); POTASSIUM SERUM 4.4 MEQ/L (3.5-5.1); SODIUM LEVEL 139 MEQ/L (136-145); TOTAL PROTEIN 7.2 GM/DL (6.4-8.2); TRIGLYCERIDES LEVEL 75 MG/DL (<150)
[2021-06-08 06:00] LABS: ABG BASE EXCESS 7.8 (-2.0-2.0); ABG HCO3 34.1 MEQ/L (22.0-26.0); ABG PARTIAL PRESSURE CO2 56.3 mmHg (35.0-45.0); ABG PARTIAL PRESSURE O2 111.3 mmHg (75.0-100.0); ABG STANDARD HCO3 31.6 MEQ/L (22.0-26.0); ABG TOTAL CO2 35.8 MEQ/L (23.0-31.0)
[2021-06-08] MEDS: TIOTROPIUM INHALER/CAPSULE (SPIRIVA) INH SCH (07:20)
[2021-06-08] MEDS: BUDESONIDE 0.5 MG/2 ML INHALATION SUSPENSION INH SCH (07:21)
--- NOTE | 2021-06-08 07:49 | REP ---
INDICATION: Edema COMPARISON: 06/07/2021 TECHNIQUE: Portable AP view of the chest FINDINGS: The mediastinum and cardiac silhouette are stable and cardiomegaly is again appreciated. Evaluation is limited by decreased inspiratory effort which accentuates the pulmonary vasculature and mild pulmonary vascular congestion/interstitial edema cannot be excluded. No focal consolidation. No definite effusion. No pneumothorax. Skeletal structures stable. IMPRESSION: Limited examination. Cannot exclude mild pulmonary vascular congestion/interstitial edema. <Electronically signed by Mateusz Garcia > 06/08/21 0727
--- NOTE | 2021-06-08 07:57 | ECHO ---
ECHOCARDIOGRAM DATE OF PROCEDURE: 06/06/2021 Age: 60 Gender: Male Height: Weight: REFERRING PHYSICIAN: Pierre Solitario M.D. PATIENT LOCATION: Room 3204. REASON FOR STUDY: Congestive heart failure. 2D MEASUREMENTS: IVS 2.0 cm LV 6.0 cm LVPW 1.8 cm LA 4.4 cm Aorta 3.6 cm DOPPLER MEASUREMENT Peak velocity across the aortic valve 1.6 m/s Peak velocity across the LVOT 1.2 m/s Mitral E 0.99 Mitral A 0.80 with a ratio of 1.2 2D COMMENTS: 1. Moderately increased left ventricular wall thickness with a mildly enlarged left ventricle, but an overall normal global left ventricular systolic function. The estimated left ventricular systolic ejection fraction is 60% to 65%. 2. Mildly dilated left atrium. The right heart chambers also appear to be mildly enlarged in limited views. 3. Normal aortic root. 4. A small pericardial effusion was noted, no evidence of cardiac tamponade. 5. The mitral valve, the aortic valve, and the tricuspid valve appear to be normal. The pulmonic valve and proximal pulmonary artery branches were not well visualized. DOPPLER: No significant valvular abnormalities detected. Abnormal relaxation pattern was noted across the mitral valve annulus consistent with features of grade 2 left ventricular diastolic dysfunction. IMPRESSION: 1. Normal global left ventricular systolic function with moderate concentric left ventricular hypertrophy and mild eccentric left ventricular hypertrophy. 2. There are some features of grade 2 left ventricular diastolic dysfunction, left ventricular end diastolic pressure might be elevated. 3. Mildly dilated left atrium, no evidence of mitral regurgitation or stenosis. 4. The right heart chambers appear to be mildly enlarged. 5. A small pericardial effusion was noted, no evidence of cardiac tamponade. 6. This study was technically limited due to poor acoustic windows secondary to body habitus.
[2021-06-08 08:00] VITALS: BP 127/60
[2021-06-08] MEDS: ASPIRIN 81MG ENTERIC TABLET PO SCH (08:32)
[2021-06-08] MEDS: ARIPiprazole 15 MG TAB (AbiLIFY) PO SCH (08:32)
[2021-06-08 08:34] VITALS: BP 127/60
[2021-06-08] MEDS: CARVedilol 12.5 MG TAB PO SCH (08:34)
[2021-06-08] MEDS: ENOXAPARIN 40MG/0.4ML SYRINGE (J1650 PER 10MG) SC SCH (08:34)
[2021-06-08] MEDS: PANTOPRAZOLE 40MG VIAL (C9113 PER 1) IV SCH (08:34)
--- NOTE | 2021-06-08 22:14 | DS.PDOC ---
Discharge Summary General Date of Admission Jun 04, 2021 at 19:37 Date of Discharge Jun 08, 2021 Specialist/Consultants [facility], Dr. Ying Discharge Summary PROCEDURES PERFORMED DURING STAY: None ADMITTING DIAGNOSES: 1. Hypercapnic encephalopathy 2. Acute on chronic hypercapnic hypoxic respiratory failure 3. JESUS/OHS 4. Hypertensive emergency 5. Acute on chronic heart failure with preserved ejection fraction 6. COPD 7. Normocytic anemia 8. Chronic CAD and dyslipidemia 9. Class III obesity DISCHARGE DIAGNOSES: 1. Hypercapnic encephalopathy 2. Acute on chronic hypercapnic hypoxic respiratory failure 3. JESUS/OHS 4. Hypertensive emergency 5. Acute on chronic heart failure with preserved ejection fraction 6. COPD 7. Normocytic anemia 8. Chronic CAD and dyslipidemia 9. Class III obesity COMPLICATIONS/CHIEF COMPLAINT: Acute Hypercapnic Resp Fail,Diastolic Chf,. HISTORY OF PRESENT ILLNESS: Copied from admitting attending's H&P " The patient was lethargic and kept on falling asleep during my assessment therefore the history is limited. Mr. Berger came to the hospital with complaints of shortness of breath for 3 days. Based on ER intake notes his home health aide called EMS; when they arrived he the patient was using his CPAP machine and was only sating at 88%. They gave him Decadron and 1 dose of nitro prior to transport to the ER. At the time of my evaluation he denied having chest pain missing any doses of his medications or not using his PAP machine. He admitted to eating a small bag of chips 2 days ago but was unable to identify any triggers for his shortness of breath. " HOSPITAL COURSE: Pulmonary was consulted for Bipap management. Patient was able to be diuresed. Patient's mentation improved with ventilation, and patient breathed better after diuresis. Today, patient was anxious to go home. He felt like he was back at baseline. He cleared physical therapy and was discharged home. DISCHARGE MEDICATIONS: Please see below. ALLERGIES: Please see below. PHYSICAL EXAMINATION ON DISCHARGE: VITAL SIGNS: Please see below. GENERAL: Comfortable, in no apparent distress. HEENT: EOMI, sclera clear. NECK: Supple. RESPIRATORY: Diminished breath sounds, but otherwise clear. CARDIOVASCULAR: Regular rate and rhythm. ABDOMEN: Soft, nontender. Normal bowel sounds. MUSCLE SKELETAL: Bilateral pitting edema PSYCHOLOGICAL: Anxious LABORATORY DATA: Please see below. IMAGING: Radiologist interpretation CT angio chest 1. No evidence of acute, central pulmonary embolus. Peripheral pulmonary arterial evaluation is limited by cardiac and respiratory motion artifact. 2. No other acute or concerning focal intrathoracic abnormality. PROGNOSIS: Good. ACTIVITY: As tolerated. DIET: 2gm sodium diet DISCHARGE PLAN: Home DISPOSITION: 01 Home, Self-Care. DISCHARGE INSTRUCTIONS: 1. Follow up with PCP within 1 week 2. Follow up with pulmonology in 1 week DISCHARGE CONDITION: Stable. Total time spent on discharge planning, discharge summary, and medication reconciliation: 45 minutes Vital Signs/I&Os Vital Signs Date Time Temp Pulse Resp B/P (MAP) Pulse Ox O2 Delivery O2 Flow Rate FiO2 06/08/21 08:34 64 127/60 06/08/21 08:00 96.9 22 91 Nasal Cannula 4.0 06/08/21 02:24 24 I&O- Last 24 Hours up to 6 AM 06/08/21 06:00 Intake Total 490 ml Output Total 2050 ml Balance -1560 ml Laboratory Data Labs 24H Laboratory Tests 2 06/08/21 04:23: Immature Granulocyte % (Auto) 0.3, Neutrophils (%) (Auto) 70.9H, Lymphocytes (%) (Auto) 17.2L, Monocytes (%) (Auto) 8.6H, Eosinophils (%) (Auto) 2.6, Basophils (%) (Auto) 0.4, Neutrophils # (Auto) 6.6, Lymphocytes # (Auto) 1.6, Monocytes # (Auto) 0.8, Eosinophils # (Auto) 0.2, Basophils # (Auto) 0.0, Nucleated Red Blood Cells % (auto) 0.0 06/08/21 04:24: Anion Gap 0L, Glomerular Filtration Rate > 60.0, Calcium Level 8.6L, Phosphorus Level 3.9, Total Bilirubin 1.0, Aspartate Amino Transf (AST/SGOT) 13, Alanine Aminotransferase (ALT/SGPT) 17, Alkaline Phosphatase 55, Lactate Dehydrogenase 160, Total Creatine Kinase 32L, Total Protein 7.2, Albumin 2.6L, Albumin/Globulin Ratio 0.6, Triglycerides Level 75, Cholesterol Level 103 06/08/21 05:47: Blood Gas Bicarbonate Standard 31.6H, Arterial Blood pH 7.400, Arterial Blood Partial Pressure CO2 56.3H, Arterial Blood Partial Pressure O2 111.3H, Arterial Blood Total CO2 35.8H, Arterial Blood HCO3 34.1H, Arterial Blood Base Excess 7.8 H, Arterial Blood Oxygen Saturation 98.0 CBC/BMP Laboratory Tests 06/08/21 04:23 06/08/21 04:24 Discharge Medications Scheduled Aripiprazole (Aripiprazole) 30 Mg Tablet, 15 MG PO DAILY, (Reported) Ascorbic Acid (Ascorbic Acid) 500 Mg Tablet, 500 MG PO DAILY, (Reported) Aspirin (Aspirin EC) 81 Mg Tablet.dr, 81 MG PO DAILY, (Reported) Atorvastatin Calcium (Atorvastatin Calcium) 40 Mg Tablet, 40 MG PO QHS, (Reported) Budesonide/Formoterol (Symbicort 160-4.5 Mcg Inhaler) 60 Puff/Inhaler Aers, 2 PUFFS INH BID, (Reported) Carvedilol (Carvedilol) 12.5 Mg Tab, 12.5 MG PO BID, (Reported) Docusate Sodium (Docusate Sodium) 100 Mg Capsule, 100 MG PO DAILY, (Reported) Ergocalciferol (Vitamin D2) (Vitamin D2) 50,000 Units Cap, 50,000 UNITS PO 1XWK, (Reported) Fluticasone Propionate (Fluticasone Propionate) 16 Gm [place].susp, 2 SPRAY NARES DAILY, (Reported) Omeprazole (Omeprazole) 20 Mg Capsule.dr, 20 MG PO QPM, (Reported) Potassium Chloride (Potassium Chloride) 10 Meq Tab, 10 MEQ PO BID, (Reported) Ramipril (Ramipril) 5 Mg Capsule, 5 MG PO DAILY, (Reported) Tiotropium [place] (Spiriva) 18 Mcg Cap, 18 MCG INH DAILY, (Reported) Torsemide (Torsemide) 10 Mg Tablet, 30 MG PO DAILY, (Reported) Scheduled PRN Acetaminophen (Acetaminophen) 500 Mg Tablet, 1,000 MG PO Q6H PRN for PAIN, (Reported) Albuterol Sulfate (Proair Hfa) 108 Mcg/Act Aer, 2 PUFF INH Q4H PRN for SOB/WHEEZING, (Reported) Cyclobenzaprine HCl (Cyclobenzaprine HCl) 10 Mg Tab, 10 MG PO QHS PRN for MUSCLE SPASMS, (Reported) Guaifenesin (Guaifenesin) 200 Mg Tablet, 200 MG PO Q4H PRN for COUGH, (Reported) Ipratropium/Albuterol Sulfate (Iprat-Albut 0.5-3(2.5) mg/3 ml) 3 Ml Ampul.neb, 1 VIAL NEB QID PRN for SHORTNESS OF BREATH, (Reported) Nitroglycerin (Nitroglycerin) 0.4 Mg Sub, 0.4 MG SL NITRO PRN for CHEST PAIN, (Reported) diphenhydrAMINE HCl (diphenhydrAMINE HCl) 25 Mg Tablet, 25 MG PO QHS PRN for SLEEP, (Reported) Allergies Coded Allergies: gabapentin (Verified Allergy, Intermediate, hives, 12/07/20) tramadol (Verified Allergy, Intermediate, hives, 03/27/21) TONEY BLEVINS DO Jun 08, 2021 22:14
== END 2021-06-08 10:10 | disposition home health service (06) | DRG 291 ==
LOC: M ED 15:18 → M ED INP 19:37 → EEVIPCON 19:37 → M ICU 22:06
PROVIDERS: ADMIT Internal Medicine; ATTEND Internal Medicine
DX: I11.0 Hypertensive heart disease with heart failure (principal); G93.41 Metabolic encephalopathy; J96.21 Acute and chronic respiratory failure with hypoxia; J96.22 Acute and chronic respiratory failure with hypercapnia; I16.1 Hypertensive emergency; E66.2 Morbid (severe) obesity with alveolar hypoventilation; I50.33 Acute on chronic diastolic (congestive) heart failure; J44.9 Chronic obstructive pulmonary disease, unspecified; I25.10 Atherosclerotic heart disease of native coronary artery without angina pectoris; I25.2 Old myocardial infarction; E78.5 Hyperlipidemia, unspecified; K21.9 Gastro-esophageal reflux disease without esophagitis; F31.9 Bipolar disorder, unspecified; G40.909 Epilepsy, unspecified, not intractable, without status epilepticus; D64.9 Anemia, unspecified; R60.1 Generalized edema; Z79.82 Long term (current) use of aspirin; Z79.899 Other long term (current) drug therapy; Z88.8 Allergy status to other drugs, medicaments and biological substances; Z20.822 Contact with and (suspected) exposure to COVID-19; Z91.19 Patient's noncompliance with other medical treatment and regimen